=== PATIENT | female | born 1995 | race Caucasian/White ===

== ENCOUNTER 2018-06-20 00:33 | Outpatient (CLI) | payer OTHER, MEDICAID, SELFPAY ==
--- NOTE | 2018-06-20 06:57 | DI.US_ITS ---
SYMPTOMS/DIAGNOSIS: ONGOING WEIGHT GAIN WITH MAINLY ABDOMINAL DISTENTION, R14.0 ABDOMINAL ULTRASOUND: Comparison is made with July,. The liver is mildly enlarged and shows mildly increased echogenicity consistent with fatty infiltration. No focal liver lesions are seen. There is no evidence of biliary dilatation. The gallbladder is unremarkable, without evidence of stones or wall thickening. The spleen is enlarged, measuring 15.7 cm in length. This is stable from the previous exam. No focal splenic lesion is seen. There is no evidence of ascites. The kidneys, aorta and pancreas are unremarkable. IMPRESSION: Stable splenomegaly. The liver is now mildly enlarged and shows fatty infiltration. PELVIC ULTRASOUND: Transabdominal exam was performed. The uterus measures 5.6 x 3.1 x 3.8 cm. The endometrial stripe measures 3 mm in thickness. The ovaries are normal in size. No cysts or masses are seen. There is no evidence of free fluid. The bladder appears normal. IMPRESSION: Negative transabdominal pelvic ultrasound.
--- NOTE | 2018-06-20 06:57 | DI.RAD_ITS ---
SYMPTOMS/DIAGNOSIS: WEIGHT GAIN AND MAINLY PROGRESSIVE DISTENTION, R14.0 KUB: The bowel gas pattern is unremarkable. An enlarged spleen is seen. No urinary tract calculi are visible. The liver appears normal in size. IMPRESSION: Splenomegaly.
== END 2018-06-20 00:53 ==
PROVIDERS: PCP Pediatrics; Visit Provider Pediatrics
DX: R14.0 Abdominal distension (gaseous) (principal); R63.5 Abnormal weight gain; R16.1 Splenomegaly, not elsewhere classified
CPT/HCPCS: 74018; 76700; 76856

== ENCOUNTER 2019-01-08 15:39 | Outpatient (CLI) | payer OTHER, MEDICAID, SELFPAY ==
[2019-01-08 16:54] LABS: Hemoglobin A1C 4.1 % (4.5-6.2)
[2019-01-08 17:24] LABS: FREE T4 0.99 ng/dL (0.76-1.46); TSH 2.21 uIU/mL (0.358-3.74)
== END 2019-01-08 15:59 ==
PROVIDERS: PCP Nurse Practitioner Family; Visit Provider Pediatrics
DX: E03.9 Hypothyroidism, unspecified (principal)
CPT/HCPCS: 36415; 83036; 84439; 84443

== ENCOUNTER 2020-05-13 17:42 | Outpatient (REF) | payer OTHER, MEDICAID, SELFPAY | END 2020-05-13 18:02 | LOC: LBN 17:42 | PROVIDERS: PCP Nurse Practitioner Family; Visit Provider Physician Assistant | DX: B34.9 Viral infection, unspecified (principal) | CPT/HCPCS: 87070 ==

== ENCOUNTER 2020-05-14 09:32 | Outpatient (CLI) | payer OTHER, MEDICAID, SELFPAY ==
[2020-05-16 18:17] LABS: Patient Race White; SARS-CoV-2 RNA Undetected (Undetected); SARS-CoV-2 Specimen Source Nasal
== END 2020-05-14 09:52 ==
PROVIDERS: PCP Nurse Practitioner Family; Visit Provider Physician Assistant
DX: B34.8 Other viral infections of unspecified site (principal)
CPT/HCPCS: U0003

== ENCOUNTER 2020-06-11 22:14 | Outpatient (REF) | payer OTHER, MEDICAID, SELFPAY | END 2020-06-11 22:34 | LOC: LBN 22:14 | PROVIDERS: PCP Nurse Practitioner Family; Visit Provider Nurse Practitioner Family | DX: N30.90 Cystitis, unspecified without hematuria (principal) | CPT/HCPCS: 87086 ==

== ENCOUNTER 2020-06-15 01:28 | Outpatient (CLI) | payer OTHER, MEDICAID, SELFPAY ==
[2020-06-15 13:16] LABS: Abs Immature Grans 0.02 10^3/uL (0.0-0.06); Absolute Basophil Count 0.08 10^3/uL (0.0-0.2); Absolute Eosinophil Count 0.93 10^3/uL (0.0-0.7); Absolute Lymphocyte Count 2.01 10^3/uL (1.2-3.4); Absolute Monocyte Count 0.45 10^3/uL (0.1-0.8); Absolute Neutrophil Count 2.86 10^3/uL (1.2-6.7); Basophils % 1.3; Eosinophils % 14.6; HCT 40.1 % (36.0-46.0); HGB 12.9 g/dL (11.2-15.7); Immature Grans % 0.3; Lymphocytes % 31.7; MCH 31.5 pg (27.0-33.0); MCHC 32.2 % (32.0-36.0); MPV 9.6 fL (8.0-11.0); Monocytes % 7.1; Nucleated RBC 0 %; Platelet Count 147 10^3/uL (130-400); RBC 4.09 10^6/uL (3.93-5.22); RDW 14.6 % (11.7-14.6); RDW-SD 52.3 fL; WBC 6.35 10^3/uL (4.4-10.8)
[2020-06-15 17:55] LABS: ALT 17 U/L (14-59); AST 15 U/L (15-37); Albumin 3.7 g/dL (3.4-5.0); Alkaline Phosphatase 88 U/L (46-116); Anion Gap 10.5 mmol/L (3-11); BUN 10 mg/dL (7-18); Bilirubin, Total 0.7 mg/dL (0.2-1.0); CO2 25.5 mmol/L (21.0-32.0); CREATININE 0.64 mg/dL (0.55-1.02); Calcium 9.3 mg/dL (8.5-10.1); Chloride 104 mmol/L (98-107); FREE T4 0.98 ng/dL (0.76-1.46); Glucose 104 mg/dL (74-106); Potassium 3.7 mmol/L (3.5-5.1); Sodium 140 mmol/L (136-145); TSH 2.31 uIU/mL (0.36-3.74); Total Protein 7.7 g/dL (6.4-8.2)
== END 2020-06-15 01:48 ==
PROVIDERS: PCP Nurse Practitioner Family; Visit Provider Nurse Practitioner Family
DX: E03.9 Hypothyroidism, unspecified (principal); R10.13 Epigastric pain
CPT/HCPCS: 36415; 80053; 84439; 84443; 85025

== ENCOUNTER 2020-06-18 04:11 | Outpatient (CLI) | payer OTHER, MEDICAID, SELFPAY ==
--- NOTE | 2020-06-18 07:00 | DI.US_ITS ---
EXAM: US ABDOMEN PELVIS INDICATION: Epigastric AND LOW abdominal pain x 1wk, ? APPENDICITIS,R10.30,R10.13 COMPARISON: US US abdomen pelvis from 06/20/2018 TECHNIQUE: Ultrasound abdomen performed using standard protocol FINDINGS: Abdominal ultrasound was performed according to the usual protocol. The liver is mildly enlarged.. No focal hepatic lesion seen. There is no evidence of cholelithiasis or biliary dilatation. No gallbladder wall thickening or peric holecystic fluid collection. Pancreas appears intact as visualized. Spleen is moderately enlarged with no focal lesion.. Kidneys are normal in size and shape. No renal mass, hydronephrosis, or nephrolithiasis. Abdominal aorta and IVC are of normal diameter. Scanning of the pelvis was also performed, transabdominal scanning only. Uterus is unremarkable in a ppearance, measuring 61 x 34 x 38 millimeters, right and left ovaries measure 37 x 22 x 25 millimeter s and 25 x 13 x 17 millimeters respectively. Unremarkable appearance of ovarian follicles. No Doppl er abnormality of the ovaries. No free fluid identified in the cul-de-sac. IMPRESSION: Hepatosplenomegaly noted. No other specific abnormality. Appendix was nonvisualized ultrasonographi leana.. Negative transabdominal pelvic ultrasound.
== END 2020-06-18 04:31 ==
PROVIDERS: PCP Nurse Practitioner Family; Visit Provider Nurse Practitioner Family
DX: R16.2 Hepatomegaly with splenomegaly, not elsewhere classified (principal); R10.13 Epigastric pain; R10.30 Lower abdominal pain, unspecified
CPT/HCPCS: 76700; 76856

== ENCOUNTER 2020-07-01 04:13 | Outpatient (CLI) | payer OTHER, MEDICAID, SELFPAY ==
[2020-07-01 13:39] LABS: Amylase 44 U/L (25-115); Lipase 90 U/L (73-393)
[2020-07-05 13:25] LABS: IgA 86 mg/dL (85-499); Interpretation (See Note); Tissue Transglutaminase IgA <1.2 U/mL (<4.0)
== END 2020-07-01 04:33 ==
PROVIDERS: PCP Nurse Practitioner Family; Visit Provider Nurse Practitioner Family
DX: R10.13 Epigastric pain (principal)
CPT/HCPCS: 36415; 82784; 83516; 83690; 82150

== ENCOUNTER 2021-02-22 19:49 | Outpatient (REF) | payer OTHER, MEDICAID, SELFPAY ==
[2021-02-24 14:05] LABS: COVID-19 RT-PCR UVMMC Result Negative (Negative)
== END 2021-02-22 19:50 | disposition home or self-care (01) ==
LOC: LBN 19:49
PROVIDERS: PCP Nurse Practitioner Family; Visit Provider Physician Assistant
DX: J02.9 Acute pharyngitis, unspecified (principal); Z20.822 Contact with and (suspected) exposure to COVID-19
CPT/HCPCS: U0003; 87070

== ENCOUNTER 2021-12-19 11:21 | Outpatient (CLI) | payer OTHER, MEDICAID, SELFPAY ==
--- NOTE | 2021-12-19 11:00 | DI.RAD_ITS ---
Exam(s) XR WRIST LT COMP NAVICULAR EXAM: XR WRIST LT COMP NAVICULAR CLINICAL HISTORY: L wrist pain. TECHNIQUE: 2D digital imaging was performed. Four views. COMPARISON: No exams were available for comparison FINDINGS: BONES: No acute fracture is present. No bony destructive lesion is seen. JOINTS: The carpal bones are normally aligned. SOFT TISSUE: Normal. IMPRESSION: Unremarkable radiographs of the left wrist. DATA REPOSITORY: RADIATION DOSE DELIVERED:
== END 2021-12-19 11:22 | disposition home or self-care (01) ==
LOC: DIORS 11:21
PROVIDERS: PCP Nurse Practitioner Family; Referring Provider Nurse Practitioner Family; Visit Provider Physician Assistant
DX: M25.532 Pain in left wrist (principal)
CPT/HCPCS: 73110

== ENCOUNTER → 2022-01-02 04:05 | Outpatient (CLI) | payer OTHER, MEDICAID, SELFPAY ==
--- NOTE | 2022-01-02 06:30 | DI.MRI_ITS ---
Exam(s) MR UPPER JOINT LT WO EXAM: MR UPPER JOINT LT WO CLINICAL HISTORY: wrist pain, ganglion cyst volar aspect, [id number]. TECHNIQUE: Multiplanar multisequence MRI was performed. COMPARISON: None. FINDINGS: BONES: There is no fracture or contusion pattern. Minimal edema seen in the lunate and the distal rad ius. JOINTS: The radiocarpal joint is unremarkable. The carpal joints are unremarkable. TENDONS: Flexors: Unremarkable. Extensors: Unremarkable. MUSCLES: Unremarkable. MEDIAN NERVE: Unremarkable on this noncontrast examination. ULNAR NERVE: Unremarkable on this noncontrast examination. SOFT TISSUES: There is a tiny fluid collection in the volar soft tissues measuring 1.8 mm x 5.8 mm ar ising from the articulation between the trapezium and the scaphoid. There is a 2.3 x 3.7 mm fluid co llection on the dorsal aspect of the wrist arising from the articulation of the scaphoid in the dista l radius. There is a 5.6 x 1.9 mm fluid collection at the posterior medial aspect of the articulatio n between the pisiform and the triquetral bone. These may represent small ganglion cysts. LIGAMENTS: Unremarkable. TRIANGULAR FIBROCARTILAGE: Unremarkable. OTHER: IMPRESSION: Small fluid collections in the soft tissues of the wrist as described above. These may represent sma ll ganglions. DATA REPOSITORY:
== END ==
PROVIDERS: PCP Nurse Practitioner Family; Visit Provider Student in an Organized Health Care Education/Training Program
DX: M25.532 Pain in left wrist; M67.432 Ganglion, left wrist
CPT/HCPCS: 73221

== ENCOUNTER 2022-05-25 17:24 | Outpatient (REF) | payer OTHER, MEDICARE, MEDICAID, SELFPAY | END 2022-05-25 17:25 | disposition home or self-care (01) | LOC: LBN 17:24 | PROVIDERS: PCP Nurse Practitioner Family; Visit Provider Physician Assistant | DX: J02.9 Acute pharyngitis, unspecified (principal) | CPT/HCPCS: 87070 ==

== ENCOUNTER 2022-05-29 11:52 | Outpatient (REF) | payer OTHER, MEDICARE, MEDICAID, SELFPAY | END 2022-05-29 11:53 | disposition home or self-care (01) | LOC: LBN 11:52 | PROVIDERS: PCP Nurse Practitioner Family; Visit Provider Nurse Practitioner Family | DX: J02.9 Acute pharyngitis, unspecified (principal) | CPT/HCPCS: 87070 ==

== ENCOUNTER 2022-06-14 19:43 | Emergency (ER) | payer OTHER, MEDICARE, MEDICAID, SELFPAY ==
--- NOTE | 2022-06-14 19:45 | DI.RAD_ITS ---
Exam(s) XR ELBOW LT COMPLETE EXAM: XR ELBOW LT COMPLETE CLINICAL HISTORY: fall trauma TECHNIQUE: COMPARISON: No exams were available for comparison FINDINGS: Three views were obtained. There is a large elbow joint effusion or hemarthrosis. Probable fracture coronoid process of the ulna. No additional discrete fracture seen. Additional evaluation with fol low-up views or CT should be considered. IMPRESSION: RADIATION DOSE DELIVERED: Total DLP
[2022-06-14 19:52] VITALS: BP 114/77; PULSE 98; RESP 18; TEMP 37
[2022-06-14] MEDS: Ibuprofen 600 MG TAB PO (20:04)
--- NOTE | 2022-06-14 21:06 | DI.VRAD_ITS ---
PROCEDURE INFORMATION: Exam: XR Left Elbow Exam date and time: 06/14/2022 20:32 Age: 27 years old Clinical indication: Other: Fall, trauma TECHNIQUE: Imaging protocol: Radiologic exam of the Left elbow. Views: 3 or more views. COMPARISON: MR UPPER JOINT LT WO 01/02/2022 07:48 FINDINGS: Bones/joints: Suspected acute nondisplaced fracture of the coronoid process of the ulna. There is slight irregularity at this location on the lateral view with adjacent joint fluid. No dislocation. Soft tissues: Joint fluid. IMPRESSION: Suspected acute nondisplaced fracture of the coronoid process of the ulna. There is slight irregularity at this location on the lateral view with adjacent joint fluid. Follow-up is recommended. Dictated and Authenticated by: Amber Gustafson MD. Ordering:PAMELA Angel MD
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
== END 2022-06-14 22:42 | disposition home or self-care (01) ==
PROVIDERS: Emergency Provider Nurse Practitioner Family; PCP Nurse Practitioner Family
DX: S52.042A Displaced fracture of coronoid process of left ulna, initial encounter for closed fracture (principal); V29.99XA Rider (driver) (passenger) of other motorcycle injured in unspecified traffic accident, initial encounter
CPT/HCPCS: 29515; 99283; 73080

== ENCOUNTER 2022-07-06 09:09 | Outpatient (CLI) | payer OTHER, MEDICARE, MEDICAID, SELFPAY ==
--- NOTE | 2022-07-06 08:45 | DI.RAD_ITS ---
Exam(s) XR ELBOW LT LIMITED EXAM: XR ELBOW LT LIMITED CLINICAL HISTORY: follow up. TECHNIQUE: 2D digital imaging was performed of the left elbow. Two images were obtained. AP, later al and oblique views were obtained. COMPARISON: CR,XR XR ELBOW LT COMPLETE from 06/14/2022 FINDINGS: BONES: On the lateral view there is again seen a lucency through the coronoid process suspicious for fracture. No bony destructive lesion is seen. JOINTS: The elbow is normally aligned. There is a persistent small joint effusion. SOFT TISSUE: Normal. IMPRESSION: Stable appearance of the coronoid process suspicious for fracture. A CT scan may be considered for f urther evaluation. DATA REPOSITORY: RADIATION DOSE DELIVERED:
== END 2022-07-06 09:10 | disposition home or self-care (01) ==
LOC: DIORS 09:09
PROVIDERS: PCP Nurse Practitioner Family; Referring Provider Nurse Practitioner Family; Visit Provider Physician Assistant Surgical
DX: S52.042D Displaced fracture of coronoid process of left ulna, subsequent encounter for closed fracture with routine healing (principal); X58.XXXD Exposure to other specified factors, subsequent encounter
CPT/HCPCS: 73070

== ENCOUNTER 2022-08-05 18:19 | Emergency (ER) | payer OTHER, MEDICARE, MEDICAID, SELFPAY ==
[2022-08-05 18:27] VITALS: BP 143/79; PULSE 131; RESP 22; TEMP 37.2; O2SAT 97
--- NOTE | 2022-08-05 19:30 | DI.RAD_ITS ---
Exam(s) XR CHEST 2V PA LATERAL EXAM: XR CHEST 2V PA LATERAL CLINICAL HISTORY: COUGH 1 week, pui TECHNIQUE: 2D digital imaging was performed. COMPARISON: CR THORACIC SPINE from 08/14/2016 FINDINGS: HEART: Normal size. Aorta: PULMONARY VASCULATURE: Normal. LUNGS: Patchy infiltrate is noted in the right middle lobe. There is also additional patchy infiltra te seen in the left upper lobe. PLEURAL SPACE: No pleural effusion or pneumothorax. BONE:Unremarkable for age. IMPRESSION: Bilateral pneumonia, greater in the right middle lobe. DATA REPOSITORY: RADIATION DOSE DELIVERED:
--- NOTE | 2022-08-05 19:45 | ED.GENADUL_ITS ---
Discharge Plan Discharge Details Chief Complaint: RespSymp Primary Care Provider: Aretha Parnell ED Provider: Titus Gandara Home Meds and New Rx's Prescriptions: No Action triamcinolone acetonide 0.1 % cream 1 applic Topical BID PRN (Reason: atopic dermatitis) Qty: 80 4RF Rx Instructions: Apply small amount to affected areas twice a day as needed for rash Fiber Gummies 2 gram tablet,chewable 2 g PO DAILY PRN albuterol sulfate [Proventil HFA] 90 mcg/actuation HFA aerosol inhaler 2 puff inhalation Q6H PRN (Reason: shortness of breath or wheezing) Qty: 8.5 0RF norethindrone-e.estradiol-iron [Minastrin 24 Fe] 1 mg-20 mcg(24) /75 mg (4) tablet,chewable 1 tab PO DAILY Qty: 28 0RF Medical Decision Making 1942 --27-year-old female presents with cough, congestion and sore throat over the past 2 days patient is tachycardic, is saturating well on room air but has crackles bilaterally. Concern for pneumonia. Consider COVID and other viral illness. Of note, patient had been diagnosed with pneumonia clinically and treated with doxycycline in May. I will check FLUVID. We will establish IV access and give IV fluid bolus for tachycardia. Will obtain chest x-ray. Sign Out Yes HPI General Mode of arrival: ambulatory . Date/Time Provider Initiated Documentation: 08/05/22 18:45 . Limitations to Documentation: no limitations . Information obtained by: patient . HPI Narrative: 27-year-old female with mild developmental delay, presents with chief complaint of cough. Patient has had cough for the past 2 days with associated congestion and sore throat. Cough is moderate to severe with no modifiers. Of note, patient did have pneumonia that was treated with antibiotics in May. Related Data Home Medications Medication Instructions Recorded Confirmed inulin 2 gram chewable tablet 2 g PO DAILY PRN 04/22/21 08/05/22 (Fiber Gummies) triamcinolone acetonide 0.1 % 1 applic topical BID PRN atopic 06/29/21 08/05/22 topical cream dermatitis #80 grams norethindrone 1 mg-e. estradiol 20 1 tab PO DAILY #28 tabs 03/21/22 08/05/22 mcg (24)-iron 75 mg (4) chew tablet (Minastrin 24 Fe) albuterol sulfate 90 mcg/actuation 2 puff inhalation Q6H PRN 05/25/22 08/05/22 aerosol inhaler (Proventil HFA) shortness of breath or wheezing #8.5 grams Previous Rx's Medication Instructions Recorded triamcinolone acetonide 0.1 % 1 applic topical BID PRN atopic 06/29/21 topical cream dermatitis #80 grams norethindrone 1 mg-e. estradiol 20 1 tab PO DAILY #28 tabs 03/21/22 mcg (24)-iron 75 mg (4) chew tablet (Minastrin 24 Fe) albuterol sulfate 90 mcg/actuation 2 puff inhalation Q6H PRN 05/25/22 aerosol inhaler (Proventil HFA) shortness of breath or wheezing #8.5 grams Allergies Allergy/AdvReac Type Severity Reaction Status Date / Time amoxicillin Allergy Intermediate RASH Verified 08/05/22 18:29 cephalexin monohydrate Allergy Intermediate RASH Verified 08/05/22 18:29 [From Keflex] sulfamethoxazole Allergy Intermediate Hives Verified 08/05/22 18:29 [From Bactrim] trimethoprim [From Bactrim] Allergy Intermediate Hives Verified 08/05/22 18:29 clindamycin Allergy Hives Verified 08/05/22 18:29 General Stated Complaint: RespSymp BEKAH: 3 Review of Systems Constitutional Constitutional: Denies fever(s) and Reports lethargy ENT Ears, Nose, Mouth, and Throat: Reports sore throat Cardiovascular Cardiovascular: Denies chest pain Respiratory Respiratory: Reports as per HPI Gastrointestinal Gastrointestinal: Reports nausea PFSH All Active Problems Left wrist pain (Acute) Ganglion cyst of volar aspect of left wrist (Acute) Chromosome 1p36 deletion syndrome (Chronic) Splenomegaly (Chronic ~2007) Idiopathic, s/p partial splenectomy with recurrence. Fatty liver (Chronic ~06/2018) Noted on US. [facility] – [place] Hepatology eval 08/2018 with negative fibroscan and normal LFTs. No further workup indicated. 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) ADHD (attention deficit hyperactivity disorder) (Chronic) Medical History Major depressive disorder Subclinical hypothyroidism (~08/2017) Velopharyngeal insufficiency, congenital S/p pharyngoplasty Surgical History H/O oral surgery X 3 History of partial splenectomy (01/02/11) History of surgery on arm (07/07/09) Closed reduction and percutaneous pinning of displaced supracondylar fracture of left distal humerus S/P pharyngoplasty (10/03/04) Family History Self Adopted Mother Fragile X syndrome Social History Smoking/Tobacco Use Status: Never Second Hand Exposure: No Smoking risk assessment performed?: Yes Alcohol Intake: current Alcohol Intake frequency: a few times a month Alcohol type: other Drug use: Never Substance use type: does not use Adopted: Yes Caregiver/Support person: Yes (Mother) Foster care: No Household members: adopted family Housing: house Communication Needs: None Do you need help understanding health information?: Often current occupation: [employer] Pets and animals: Yes Pets and animals: cat(s) and dog(s) Sexually active: No Do you think of yourself as: straight/heterosexual What is your relationship status?: never How often do you talk on the phone with friends or family?: three or more times per week How often do you get together with friends or relatives?: three or more times per week Do you belong to any clubs or organized social groups?: yes Panel score (0-1 are the most socially isolated patients): 2 What type of physical activity do you participate in: regular exercise, other Details: Rock climbing and running Duration: 45-60 minutes/day Frequency: 3-4 times per week Delia/Amish: Gnosticist Special delia needs: No Seatbelt use: always Helmet use: Yes Water heater temp set <120 deg: Yes Working smoke detector in home: Yes Fire extinguisher in home: Yes Carbon monox detector in home: Yes Firearms in home: No Do you feel safe at home: Yes Do you feel safe in your relationship?: Yes Female Reproductive History Menstrual control method: pills History History 0 Para Hx # Term Pregnancies Multiple births Hx # Pregnancies Ectopic pregnancies AB induced Hx Number of Living Children AB spontaneous Exam Const General: cooperative and no acute distress HENMT Mouth: moist mucous membranes Eyes Conjunctivae: normal conjunctivae Sclera: normal sclerae Neck Neck: trachea midline and supple Resp Auscultation: crackles bilaterally, rhonchi upper bilaterally and no wheezes Cardio Rate: tachycardic Rhythm: regular rhythm Heart Sounds: no murmurs GI Palpation: soft, not firm, no guarding, no masses, not rigid and nontender Skin General skin exam: no rashes or lesions noted Neuro General: patient alert, patient awake, patient oriented x3 and tone normal Extrem General: no edema Psych Appearance: grossly normal Mental Status: mental status grossly normal Course Vital Signs Vital signs: Vital Signs Temperature 37.2 C 08/05/22 18:27 Pulse 131 H 08/05/22 18:27 Respiratory Rate 22 08/05/22 18:27 Blood Pressure 143/79 H 08/05/22 18:27 Pulse Oximetry 97 08/05/22 18:27 Temperature 37.2 C 08/05/22 18:27 Pulse 131 H 08/05/22 18:27 Respiratory Rate 22 08/05/22 18:27 Respiratory Effort 08/05/22 18:31 Blood Pressure 143/79 H 08/05/22 18:27 Blood Pressure Position Sitting 08/05/22 18:27 Pulse Oximetry 97 08/05/22 18:27 Oxygen Delivery Method Room Air 08/05/22 18:27 Oxygen Flow Rate 0 08/05/22 18:27 Lab/Test Results Lab/Test Results: 08/05/22 18:40 Pharynx Group A Streptococcus Culture - Pending POC Strep Test-QIANA(Rapid) Start: 08/05/22 18:34 Freq: .Rapid Strep Test Status: Active Protocol: Document 08/05/22 18:35 CB (Rec: 08/05/22 18:35 [id number]) Strep test-QIANA(Rapid)-POC POC-Strep test-QIANA (Rapid) Negative POC-Strep test-QIANA (Rapid) Negative PAWSS Have you Been Recently Intoxicated or Drunk Within the Last 30 days?: No Have you Ever Experienced Previous Episodes of Alcohol Withdrawal?: No Have you ever Experienced Withdrawal Seizures?: No Have you ever Experienced Delirium Tremens(DT)s?: No Have you ever undergone Alcohol Rehabilitation Treatment (i.e, inpt ot outpatient treatment programs)?: No Have you ever Experienced Blackouts?: No Have you ever Combined Alcohol with other Downers within the last 90 days?: No Have you ever Combined Alcohol with any other Substance of Abuse during the last 90 days?: No Positive Blood Alcohol level on Presentation? [PCS.BAL]: No Evidence of Increased Autonomic Activity (i.e. HR>120, tremor, sweating, agitation, nausea)?: No Result: 0
[2022-08-05 20:48] LABS: COVID-19 PCR Negative (Negative); Influenza A PCR Negative (Negative); Influenza B PCR Negative (Negative); RSV PCR Negative (Negative)
[2022-08-05 20:49] LABS: Source Nasopharynx
--- NOTE | 2022-08-05 20:57 | DI.VRAD_ITS ---
PROCEDURE INFORMATION: Exam: XR Chest Exam date and time: 08/05/2022 8:40 PM Age: 27 years old Clinical indication: Cough; Additional info: Cough x 1 week TECHNIQUE: Imaging protocol: Radiologic exam of the chest. Views: 2 views. COMPARISON: MR UPPER JOINT LT WO 01/02/2022 7:48 AM FINDINGS: Lungs: There is a moderate-sized region of pulmonary opacity overlying the right lower lung zone. There is a small region of pulmonary opacity overlying the left mid lung zone. Pleural spaces: No pleural effusion or pneumothorax is demonstrated. Heart/Mediastinum: The heart size is normal. Bones/joints: The visualized bony structures appear grossly intact. IMPRESSION: Bilateral pulmonary opacities, larger on the right. Multifocal pneumonia is suspected primarily in a young patient. Clinical correlation is recommended. Dictated and Authenticated by: Fernando Giordano MD. Ordering:JULIA Qureshi MD
--- NOTE | 2022-08-05 21:20 | ED.PROG_ITS ---
Date of service: 08/05/22 Time of Service: 21:20 Medical Decision Making Evidence of predominant right middle lobe pneumonia. No respiratory distress maintaining oxygenation tolerating secretions. Nontoxic however tachycardic on arrival. Multiple bedside attempts for IV placement were unsuccessful, creating anxiety discomfort and patient. I have offered to place ultrasound-guided IV however given level of discomfort and anxiety patient family would like to hold off at this time. Patient is tolerating p.o. without issue, will administer Pedialyte on top of the water that she has been drinking at bedside. Given multiple medication allergies will start patient on respiratory fluoroquinolone. Close reassessment of symptoms colitis patient remained stable and can continue to take p.o. will likely be able to discharge home care instructions and return precautions 23: 15 despite tolerating p.o. fluids patient is persistently tachycardic. In the setting of pneumonia would benefit from trial of parenteral fluids and screening labs for possible observation/admission. Consider component of pain/a nxiety from prior IV stick. Patient was given 2 mg nasal Versed and offered topical anesthetic cream however still very anxious about getting an IV stick. Will likely need to sedate patient for IV access. 08/06 01: 46 patient resting comfortably heart rate greatly improved respiratory rate improved normoxic no distress. Appears proved after fluids. Labs largely unremarkable. We will continue with oral levofloxacin as outpatient we will also prescribe albuterol inhaler. Home care instructions and return precautions given. Patient and family feeling comfortable to go home. Sign Out No Sign Out Sign Out Data: Sign Out Comment: 27-year-old female here with cough for the past 2 days. Patient is tachycardic. Plan at signout is followup labs, covid and cxr and reassess patient after IV fluids and acetaminophen IV for disposition. Last updated by Titus Gandara MD at 08/05/22 19:54 Discharge Plan Disposition Patient Disposition: Home Condition: Improving Discharge Details Clinical Impression: Pneumonia Primary Care Provider: Aretha Parnell ED Provider: Duane Sorensen Home Meds and New Rx's Prescriptions: New levofloxacin 750 mg tablet 750 mg PO DAILY 7 Days Qty: 7 0RF No Action triamcinolone acetonide 0.1 % cream 1 applic Topical BID PRN (Reason: atopic dermatitis) Qty: 80 4RF Rx Instructions: Apply small amount to affected areas twice a day as needed for rash Fiber Gummies 2 gram tablet,chewable 2 g PO DAILY PRN albuterol sulfate [Proventil HFA] 90 mcg/actuation HFA aerosol inhaler 2 puff inhalation Q6H PRN (Reason: shortness of breath or wheezing) Qty: 8.5 0RF norethindrone-e.estradiol-iron [Minastrin 24 Fe] 1 mg-20 mcg(24) /75 mg (4) tablet,chewable 1 tab PO DAILY Qty: 28 0RF Discharge Instructions Instructions: Pneumonia (ED) Additional Instructions: Please take medications as prescribed. Please return to the emergency department for any worsening symptoms. Follow-up with your primary care physician next week.
[2022-08-05] MEDS: Electrolyte SOLUTION,ORAL 1000 ML BTL (21:22)
[2022-08-05] MEDS: levoFLOXacin 500 MG, levoFLOXacin 250 MG 750 MG PO (21:22)
[2022-08-05 22:02] VITALS: BP 121/74; PULSE 119; RESP 24; O2SAT 98
[2022-08-05] MEDS: Levalbuterol 1.25 MG/3 ML UPD VIAL UPD (22:05)
[2022-08-05] MEDS: Midazolam 10 MG/2 ML VIAL 2 MG NS (22:50)
[2022-08-06] MEDS: Lidocaine 4% Cream 5 GM TUBE TP
[2022-08-06] MEDS: Normal Saline 1,000 ML 1000 ML IV (00:05)
[2022-08-06 00:24] LABS: Lactate 1.4 mmol/L (0.6-1.4)
[2022-08-06] MEDS: Acetaminophen 325 MG TAB (00:25)
[2022-08-06 00:26] LABS: Abs Immature Grans 0.02 10^3/uL (0.0-0.06); Absolute Basophil Count 0.04 10^3/uL (0.0-0.2); Absolute Eosinophil Count 0.15 10^3/uL (0.0-0.7); Absolute Lymphocyte Count 1.04 10^3/uL (1.2-3.4); Absolute Monocyte Count 0.49 10^3/uL (0.1-0.8); Absolute Neutrophil Count 5.52 10^3/uL (1.2-6.7); Basophils % 0.6; Eosinophils % 2.1; HCT 38.4 % (36.0-46.0); HGB 12.9 g/dL (11.2-15.7); Immature Grans % 0.3; Lymphocytes % 14.3; MCH 30.9 pg (27.0-33.0); MCHC 33.6 % (32.0-36.0); MCV 92 fL (80-95); Monocytes % 6.7; Platelet Count 154 10^3/uL (130-400); RBC 4.18 10^6/uL (3.93-5.22); RDW 13.7 % (11.7-14.6); RDW-SD 45.7 fL; WBC 7.26 10^3/uL (4.4-10.8)
[2022-08-06 00:41] LABS: ALT 14 U/L (14-59); AST 11 U/L (15-37); Albumin 3.9 g/dL (3.4-5.0); Alkaline Phosphatase 84 U/L (46-116); Anion Gap 9.3 mmol/L (3-11); BUN 10 mg/dL (7-18); Bilirubin, Total 0.8 mg/dL (0.2-1.0); CO2 24.7 mmol/L (21.0-32.0); CREATININE 0.6 mg/dL (0.55-1.02); Calcium 9.2 mg/dL (8.5-10.1); Chloride 102 mmol/L (98-107); Estimated GFR 127.67 (mL/min/1.73m2); Glucose 110 mg/dL (74-106); Potassium 3.7 mmol/L (3.5-5.1); Sodium 136 mmol/L (136-145); Total Protein 8.2 g/dL (6.4-8.2)
[2022-08-06 01:10] VITALS: PULSE 101; O2SAT 97
[2022-08-06 02:00] VITALS: BP 119/68; PULSE 99; RESP 16; TEMP 37; O2SAT 97
[2022-08-06] MEDS: levoFLOXacin 500 MG, levoFLOXacin 250 MG 750 MG PO (02:00)
[2022-08-06] MEDS: Albuterol HFA 8 GM 60 PUFF INH IH (02:00)
--- NOTE | 2022-08-06 02:18 | NUR.NOTE ---
spacer given at discharge.Nursing Note:
== END 2022-08-06 02:21 | disposition home or self-care (01) ==
PROVIDERS: Registered Nurse Emergency; Student in an Organized Health Care Education/Training Program; Emergency Provider Emergency Medicine; PCP Nurse Practitioner Family
DX: J18.9 Pneumonia, unspecified organism (principal); R00.0 Tachycardia, unspecified; E03.9 Hypothyroidism, unspecified; Z20.822 Contact with and (suspected) exposure to COVID-19
CPT/HCPCS: 36415; 80053; 87637; 87880; 94640; 96361; 96374; 99284; 71046; 83605; 85025; 87081; J7614

== ENCOUNTER 2022-08-07 02:09 | Inpatient (IN) | payer OTHER, MEDICARE, MEDICAID, SELFPAY ==
[2022-08-07] VITALS (25 sets, daily range): BP systolic 104–147; BP diastolic 57–78; PULSE 94–145; RESP 1–45; TEMP 36.7–37.9; O2SAT 93–99
--- NOTE | 2022-08-07 02:15 | DI.RAD_ITS ---
Exam(s) XR PORTABLE CHEST AP EXAM: XR PORTABLE CHEST AP CLINICAL HISTORY: shortness of breath, cough TECHNIQUE: 2D digital imaging was performed. COMPARISON: No exams were available for comparison FINDINGS: LUNGS: Interval increase in density of previously noted right lower lung field pneumonia. This also mildly increased densities in the left mid lung field. No pleural abnormality seen. HEART: Normal. AORTA: Normal. BONES: Unremarkable for age. Soft tissues: Unremarkable. IMPRESSION: Interval worsening previously bilateral infiltrates greater on the right. DATA REPOSITORY: RADIATION DOSE DELIVERED:
--- NOTE | 2022-08-07 02:31 | ED.GENADUL_ITS ---
Discharge Plan Disposition Patient Disposition: Admit to [facility] Condition: Stable Discharge Details Chief Complaint: RespSymp Clinical Impression: Pneumonia, RSV (respiratory syncytial virus pneumonia) Primary Care Provider: Aretha Parnell ED Provider: Duane Sorensen Home Meds and New Rx's Prescriptions: No Action triamcinolone acetonide 0.1 % cream 1 applic Topical BID PRN (Reason: atopic dermatitis) Qty: 80 4RF Rx Instructions: Apply small amount to affected areas twice a day as needed for rash Fiber Gummies 2 gram tablet,chewable 2 g PO DAILY PRN albuterol sulfate [Proventil HFA] 90 mcg/actuation HFA aerosol inhaler 2 puff inhalation Q6H PRN (Reason: shortness of breath or wheezing) Qty: 8.5 0RF norethindrone-e.estradiol-iron [Minastrin 24 Fe] 1 mg-20 mcg(24) /75 mg (4) tablet,chewable 1 tab PO DAILY Qty: 28 0RF levofloxacin 750 mg tablet 750 mg PO DAILY 7 Days Qty: 7 0RF Medical Decision Making 27-year-old female presents brought in by parents for evaluation of worsening infectious symptoms, was diagnosed with pneumonia yesterday started on levofloxacin given multiple medication allergies, presents with recurrent tachycardia diaphoresis fever body aches headache cough. Concern for persistent/worsening pneumonia. Will benefit from IV fluids, parenteral antibiotics, admission for monitoring of respiratory status. Lower suspicion for cardiac etiology PE or other source of infection. Nonmeningeal, alert interactive. Due to developmental delay and anxiety patient will be anxiolysis and topical anesthetic before IV placement. Will draw labs cultures will obtain x-ray. 05:02 evidence of worsening pneumonia, RSV, patient given dexamethasone nebulized albuterol, fluids, Levaquin. Will be admitted for close observation of respiratory status and fluid status. Sign Out No HPI General Date/Time Provider Initiated Documentation: 08/07/22 02:27 . HPI Narrative: 27-year-old female recently diagnosed with pneumonia discharged home with oral antibiotics presents with persistent tachycardia shortness of breath and cough, diaphoresis headache and body aches. Initially showed improvement during last visit however worsened today per parents. Related Data Home Medications Medication Instructions Recorded Confirmed inulin 2 gram chewable tablet 2 g PO DAILY PRN 04/22/21 08/05/22 (Fiber Gummies) triamcinolone acetonide 0.1 % 1 applic topical BID PRN atopic 06/29/21 08/05/22 topical cream dermatitis #80 grams norethindrone 1 mg-e. estradiol 20 1 tab PO DAILY #28 tabs 03/21/22 08/05/22 mcg (24)-iron 75 mg (4) chew tablet (Minastrin 24 Fe) albuterol sulfate 90 mcg/actuation 2 puff inhalation Q6H PRN 05/25/22 08/05/22 aerosol inhaler (Proventil HFA) shortness of breath or wheezing #8.5 grams levofloxacin 750 mg tablet 750 mg PO DAILY 7 days #7 tabs 08/06/22 Previous Rx's Medication Instructions Recorded triamcinolone acetonide 0.1 % 1 applic topical BID PRN atopic 06/29/21 topical cream dermatitis #80 grams norethindrone 1 mg-e. estradiol 20 1 tab PO DAILY #28 tabs 03/21/22 mcg (24)-iron 75 mg (4) chew tablet (Minastrin 24 Fe) albuterol sulfate 90 mcg/actuation 2 puff inhalation Q6H PRN 05/25/22 aerosol inhaler (Proventil HFA) shortness of breath or wheezing #8.5 grams levofloxacin 750 mg tablet 750 mg PO DAILY 7 days #7 tabs 08/06/22 Allergies Allergy/AdvReac Type Severity Reaction Status Date / Time amoxicillin Allergy Intermediate RASH Verified 08/07/22 04:03 cephalexin monohydrate Allergy Intermediate RASH Verified 08/07/22 04:03 [From Keflex] sulfamethoxazole Allergy Intermediate Hives Verified 08/07/22 04:03 [From Bactrim] trimethoprim [From Bactrim] Allergy Intermediate Hives Verified 08/07/22 04:03 clindamycin Allergy Hives Verified 08/07/22 04:03 General Stated Complaint: RespSymp BEKAH: 3 Review of Systems Narrative: Review of Systems Constitutional: Fever Eyes: negative ENT: negative Cardiovascular: negative Respiratory: Cough Gastrointestinal: negative : negative Musculoskeletal: negative Skin: negative Neurologic: negative Psych: negative PFSH All Active Problems (Updated 08/07/22 @ 05:04 by Duane Sorensen MD) Pneumonia (Acute) Pneumonia (Acute) RSV (respiratory syncytial virus pneumonia) (Acute) Left wrist pain (Acute) Ganglion cyst of volar aspect of left wrist (Acute) Chromosome 1p36 deletion syndrome (Chronic) Splenomegaly (Chronic ~2007) Idiopathic, s/p partial splenectomy with recurrence. Fatty liver (Chronic ~06/2018) Noted on US. [facility] [place] Hepatology eval 08/2018 with negative fibroscan and normal LFTs. No further workup indicated. 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) ADHD (attention deficit hyperactivity disorder) (Chronic) Medical History Major depressive disorder Subclinical hypothyroidism (~08/2017) Velopharyngeal insufficiency, congenital S/p pharyngoplasty Surgical History H/O oral surgery X 3 History of partial splenectomy (01/02/11) History of surgery on arm (07/07/09) Closed reduction and percutaneous pinning of displaced supracondylar fracture of left distal humerus S/P pharyngoplasty (10/03/04) Family History Self Adopted Mother Fragile X syndrome Social History Smoking/Tobacco Use Status: Never Second Hand Exposure: No Smoking risk assessment performed?: Yes Alcohol Intake: current Alcohol Intake frequency: a few times a month Alcohol type: other Drug use: Never Substance use type: does not use Adopted: Yes Caregiver/Support person: Yes (Mother) Foster care: No Household members: adopted family Housing: house Communication Needs: None Do you need help understanding health information?: Often current occupation: [employer] Pets and animals: Yes Pets and animals: cat(s) and dog(s) Sexually active: No Do you think of yourself as: straight/heterosexual What is your relationship status?: never How often do you talk on the phone with friends or family?: three or more times per week How often do you get together with friends or relatives?: three or more times per week Do you belong to any clubs or organized social groups?: yes Panel score (0-1 are the most socially isolated patients): 2 What type of physical activity do you participate in: regular exercise, other Details: Rock climbing and running Duration: 45-60 minutes/day Frequency: 3-4 times per week Delia/Anabaptist: Lutheran Special delia needs: No Seatbelt use: always Helmet use: Yes Water heater temp set <120 deg: Yes Working smoke detector in home: Yes Fire extinguisher in home: Yes Carbon monox detector in home: Yes Firearms in home: No Do you feel safe at home: Yes Do you feel safe in your relationship?: Yes Female Reproductive History Menstrual control method: pills History History 0 Para Hx # Term Pregnancies Multiple births Hx # Pregnancies Ectopic pregnancies AB induced Hx Number of Living Children AB spontaneous Exam Narrative Exam Narrative: Physical Examination General: alert, awake, cooperative, appears moderately uncomfortable and anxious HEENT: normocephalic, atraumatic; PERRL, EOM intact, conjunctiva normal; no nasal discharge; moist mucous membranes, oral and pharyngeal mucosa normal, tolerating secretions Neck: supple, trachea midline; full ROM Chest: normal to inspection Respiratory: normal respiratory effort, speaking in full sentences, clear to auscultation, no wheezing, rales or rhonchi Cardiac: Tachycardia, regular rhythm, S1S2 intact, no murmurs rubs or gallops GI: abdomen soft, non-tender, non-distended; no palpable mass or hep atosplenomegaly Skin: Diaphoretic; no lesions, rashes or trauma appreciated Neuro: AAOx3, normal speech, moving all extremities Psych: Anxious appearing Course Vital Signs Vital signs: Vital Signs Temperature 37.7 C H 08/07/22 02:14 Pulse 145 H 08/07/22 02:14 Respiratory Rate 24 08/07/22 02:14 Blood Pressure 147/73 H 08/07/22 02:14 Pulse Oximetry 99 08/07/22 02:14 Temperature 37.7 C H 08/07/22 02:14 Pulse 145 H 08/07/22 02:14 Respiratory Rate 24 08/07/22 02:14 Respiratory Effort 08/07/22 02:19 Respiratory Depth Shallow 08/07/22 02:19 Blood Pressure 147/73 H 08/07/22 02:14 Blood Pressure Position Sitting 08/07/22 02:14 Pulse Oximetry 99 08/07/22 02:14 Oxygen Delivery Method Room Air 08/07/22 02:14 Oxygen Flow Rate 0 08/07/22 02:14 Pain Level 0 08/07/22 02:14
[2022-08-07] MEDS: Midazolam 10 MG/2 ML VIAL 4 MG NS (02:39)
[2022-08-07] MEDS: Lidocaine 4% Cream 5 GM TUBE TP (02:39)
[2022-08-07 03:37] LABS: COVID-19 PCR Negative (Negative); Influenza A PCR Negative (Negative); Influenza B PCR Negative (Negative)
[2022-08-07] MEDS: Midazolam 10 MG/2 ML VIAL 2 MG NS (03:43)
[2022-08-07 03:44] LABS: RSV PCR Positive (Negative); Source Nasopharynx
--- NOTE | 2022-08-07 03:53 | DI.VRAD_ITS ---
PROCEDURE INFORMATION: Exam: XR Chest Exam date and time: 08/07/2022 3:03 AM Age: 27 years old Clinical indication: Cough and shortness of breath; Patient HX: Cough, SOB TECHNIQUE: Imaging protocol: Radiologic exam of the chest. Views: 1 view. COMPARISON: CR XR CHEST 2V PA LATERAL 08/05/2022 8:40 PM FINDINGS: Lungs: There is patchy alveolar opacity throughout the right lower lung zone, worse compared with the prior study from August 05. There is mildly increased hazy density on the left. Pleural spaces: No pleural effusion or pneumothorax is demonstrated. Heart/Mediastinum: Heart size is normal. Bones/joints: The visualized bony structures appear grossly intact. IMPRESSION: Patchy alveolar opacity throughout the right lower lung zone, worse compared with the prior study. Pneumonia suspected. Vague hazy density on the left suspicious for contralateral extension of infection. Dictated and Authenticated by: Fernando Giordano MD. Ordering:HEATHER Zepeda MD
[2022-08-07 04:23] LABS: Abs Immature Grans 0.03 10^3/uL (0.0-0.06); Absolute Basophil Count 0.03 10^3/uL (0.0-0.2); Absolute Eosinophil Count 0.13 10^3/uL (0.0-0.7); Absolute Lymphocyte Count 0.57 10^3/uL (1.2-3.4); Absolute Monocyte Count 0.32 10^3/uL (0.1-0.8); Basophils % 0.5; Eosinophils % 2.2; HCT 39.5 % (36.0-46.0); HGB 13.3 g/dL (11.2-15.7); Immature Grans % 0.5; Lymphocytes % 9.9; MCH 31.4 pg (27.0-33.0); MCHC 33.7 % (32.0-36.0); MCV 93 fL (80-95); MPV 9.3 fL (8.0-11.0); Monocytes % 5.5; Neutrophils % 81.4; Platelet Count 145 10^3/uL (130-400); RBC 4.23 10^6/uL (3.93-5.22); RDW-SD 47.3 fL; WBC 5.78 10^3/uL (4.4-10.8)
[2022-08-07] MEDS: ACETAMINOPHEN 1,000 MG/100 ML BTL 400 MG IVPB ×2 (04:26→11:30)
[2022-08-07] MEDS: Dexamethasone 10 MG/ML VIAL IVP (04:27)
[2022-08-07] MEDS: Lactated Ringers 1,000 ML 1000 ML IV (04:27)
[2022-08-07] MEDS: Levalbuterol 1.25 MG/3 ML UPD VIAL UPD ×5 (04:27→20:08)
[2022-08-07] MEDS: levoFLOXacin 750 MG/150 ML BAG 100 MG IVPB (04:28)
[2022-08-07] MEDS: Ondansetron 4 MG/2 ML VIAL IVP ×2 (04:28→11:26)
[2022-08-07 04:37] LABS: ALT 15 U/L (14-59); AST 16 U/L (15-37); Albumin 3.7 g/dL (3.4-5.0); Alkaline Phosphatase 80 U/L (46-116); Anion Gap 10.2 mmol/L (3-11); BUN 9 mg/dL (7-18); Bilirubin, Total 0.9 mg/dL (0.2-1.0); CO2 25.8 mmol/L (21.0-32.0); CREATININE 0.7 mg/dL (0.55-1.02); Calcium 9.6 mg/dL (8.5-10.1); Chloride 101 mmol/L (98-107); Estimated GFR 123.01 (mL/min/1.73m2); Glucose 125 mg/dL (74-106); Potassium 4.3 mmol/L (3.5-5.1); Sodium 137 mmol/L (136-145)
--- NOTE | 2022-08-07 05:23 | W.PM.HP.N ---
Date of service: 08/07/22 Time of Service: 05:23 Assessment and Plan Assessment and plan (1) RSV (respiratory syncytial virus pneumonia): Status: Acute Assessment and plan: RSV. The pneumonia is more likely than not direct manifestation of RSV though cannot rule out bacterial superinfection (arguing against is normal white count, will also check procal). Oxygenating well at present. Will continue general supportive measures but continue Levaquin for now. I see no evidence of bronchospasm at present so I think we can hold on any further steroids or bronchodilators at this point. History of Present Illness History of Present Illness Chief Complaint: cough Narrative: 27 female with developmental delay, seen here yesterday with several days of cough, congestion, sore throat, LAM. RLL pneumonia noted, sent home on Levaquin. Returns with persistent symptoms, nausea, not taking good PO. In ER findings of note for tachycardia and tachypnea, with O2 sats high 90s. White count normal but lymphopenia noted. CXR shows worsening RLL pneumonia and possibly some involvement on left. COVID and flu are negative, RSV is positive. Patient given steroids and updrafts (note, no reports of wheezing) along with Zofran and IV Levaquin. I was asked to evaluate for admission. Review of Systems Narrative: per HPI PFSH All Active Problems Pneumonia (Acute) Pneumonia (Acute) RSV (respiratory syncytial virus pneumonia) (Acute) Left wrist pain (Acute) Ganglion cyst of volar aspect of left wrist (Acute) Chromosome 1p36 deletion syndrome (Chronic) Splenomegaly (Chronic ~2007) Idiopathic, s/p partial splenectomy with recurrence. Fatty liver (Chronic ~06/2018) [place] [facility] [place] with negative fibroscan and normal LFTs. No further workup indicated. 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) ADHD (attention deficit hyperactivity disorder) (Chronic) Medical History Major depressive disorder Subclinical hypothyroidism (~08/2017) Velopharyngeal insufficiency, congenital S/p pharyngoplasty Surgical History H/O oral surgery X 3 History of partial splenectomy (01/02/11) History of surgery on arm (07/07/09) Closed reduction and percutaneous pinning of displaced supracondylar fracture of left distal humerus S/P pharyngoplasty (10/03/04) Family History Self Adopted Mother Fragile X syndrome Social History Smoking/Tobacco Use Status: Never Second Hand Exposure: No Smoking risk assessment performed?: Yes Alcohol Intake: current Alcohol Intake frequency: a few times a month Alcohol type: other Drug use: Never Substance use type: does not use Adopted: Yes Caregiver/Support person: Yes (Mother) Foster care: No Household members: adopted family Housing: house Communication Needs: None Do you need help understanding health information?: Often current occupation: [employer] Pets and animals: Yes Pets and animals: cat(s) and dog(s) Sexually active: No Do you think of yourself as: straight/heterosexual What is your relationship status?: never How often do you talk on the phone with friends or family?: three or more times per week How often do you get together with friends or relatives?: three or more times per week Do you belong to any clubs or organized social groups?: yes Panel score (0-1 are the most socially isolated patients): 2 What type of physical activity do you participate in: regular exercise, other Details: Rock climbing and running Duration: 45-60 minutes/day Frequency: 3-4 times per week Delia/Episcopalian: Buddhist Special delia needs: No Seatbelt use: always Helmet use: Yes Water heater temp set <120 deg: Yes Working smoke detector in home: Yes Fire extinguisher in home: Yes Carbon monox detector in home: Yes Firearms in home: No Do you feel safe at home: Yes Do you feel safe in your relationship?: Yes Female Reproductive History Menstrual control method: pills History History 0 Para Hx # Term Pregnancies Multiple births Hx # Pregnancies Ectopic pregnancies AB induced Hx Number of Living Children AB spontaneous Meds Allergies and Home Medications Allergies Allergy/AdvReac Type Severity Reaction Status Date / Time amoxicillin Allergy Intermediate RASH Verified 08/07/22 04:03 cephalexin monohydrate Allergy Intermediate RASH Verified 08/07/22 04:03 [From Keflex] sulfamethoxazole Allergy Intermediate Hives Verified 08/07/22 04:03 [From Bactrim] trimethoprim [From Bactrim] Allergy Intermediate Hives Verified 08/07/22 04:03 clindamycin Allergy Hives Verified 08/07/22 04:03 Home Medications Medication Instructions Recorded Confirmed Type inulin 2 gram chewable tablet 2 g PO DAILY PRN 04/22/21 08/05/22 History (Fiber Gummies) triamcinolone acetonide 0.1 % 1 applic topical BID PRN atopic 06/29/21 08/05/22 Rx topical cream dermatitis #80 grams norethindrone 1 mg-e. estradiol 20 1 tab PO DAILY #28 tabs 03/21/22 08/05/22 Rx mcg (24)-iron 75 mg (4) chew tablet (Minastrin 24 Fe) albuterol sulfate 90 mcg/actuation 2 puff inhalation Q6H PRN 05/25/22 08/05/22 Rx aerosol inhaler (Proventil HFA) shortness of breath or wheezing #8.5 grams levofloxacin 750 mg tablet 750 mg PO DAILY 7 days #7 tabs 08/06/22 Rx Exam Narrative Exam Narrative: 118/66, 130, 37.2, 20, 94% (98% during my visit). HEENT atraumatic; neck supple; lungs no wheezing noted but limited exam due to ambient noise; heart tachy/regular; abdomen soft and NT' extremities w/o edema; neuro Ox3, moves all 4s Results Labs Result diagrams: 08/07/22 04:10 08/07/22 04:10 Labs: Laboratory Results - last 24 hr 08/07/22 08/07/22 08/07/22 02:57 04:10 04:10 WBC 5.78 RBC 4.23 Hgb 13.3 Hct 39.5 MCV 93 MCH 31.4 MCHC 33.7 RDW 14.0 Plt Count 145 MPV 9.3 Immature Gran % 0.5 Neutrophils % 81.4 Lymphocytes % 9.9 Monocytes % 5.5 Eosinophils % 2.2 Basophils % 0.5 Nucleated RBC % 0.0 Absolute Neutrophils 4.70 Absolute Lymphocytes 0.57 L Absolute Monocytes 0.32 Absolute Eosinophils 0.13 Absolute Basophils 0.03 Sodium 137 Potassium 4.3 Chloride 101 Carbon Dioxide 25.8 Anion Gap 10.2 BUN 9 Creatinine 0.7 Est GFR (CKD-EPI 2020) 123.01 Glucose 125 H Calcium 9.6 Total Bilirubin 0.9 AST 16 ALT 15 Alkaline Phosphatase 80 Total Protein 8.0 Albumin 3.7 COVID-19 Source Nasopharynx SARS-CoV-2 (PCR) Negative Influenza Type A (PCR) Negative Influenza Type B (PCR) Negative RSV (PCR) Positive A* Last Vital Signs Temp 37.7 C H 08/07/22 02:14 Pulse 137 H 08/07/22 04:27 Resp 24 08/07/22 04:27 BP 147/73 H 08/07/22 02:14 Pulse Ox 95 08/07/22 05:14
[2022-08-07 08:05] LABS: Procalcitonin 0.1 ng/mL
--- NOTE | 2022-08-07 09:01 | INITIAL_ITS ---
- If Service Date Differs Date of service: 08/07/22 Time of Service: 09:01 Care Management Initial Assess REASON FOR HOSPITALIZATION:: RSV PAST MEDICAL HISTORY/PAST SURGICAL HISTORY:: All Active Problems . Pneumonia (Acute). Pneumonia (Acute). RSV (respiratory syncytial virus pneumonia) (Acute). Left wrist pain (Acute). Ganglion cyst of volar aspect of left wrist (Acute). Chromosome 1p36 deletion syndrome (Chronic). Splenomegaly (Chronic ~2007). Idiopathic, s/p partial splenectomy with recurrence. Fatty liver (Chronic ~06/2018). Noted on US. [facility] [place] eval 08/2018 with negative fibroscan and normal LFTs. No further workup indicated. Mild developmental delay (Chronic). PMS (premenstrual syndrome) (Chronic). 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 ADHD (attention deficit hyperactivity disorder) (Chronic). Medical History . Major depressive disorder. Subclinical hypothyroidism (~08/2017). Velopharyngeal insufficiency, congenital. S/p pharyngoplasty. Surgical History . H/O oral surgery. X 3. History of partial splenectomy (01/02/11). History of surgery on arm (07/07/09). Closed reduction and percutaneous pinning of displaced supracondylar fracture of left distal humerus. S/P pharyngoplasty (10/03/04) PREVIOUS FUNCTIONAL STATUS/SOCIAL/FAMILY SUPPORTS:: Joselyn lives in [facility] with her parents Radha and Lorenzo. Joselyn is independant with her ADL's at baseline. Her parents provide her transportation, as she does not dri ve. Joselyn works two days a week at a local [employer]. CURRENT FUNCTIONAL STATUS:: CM called into Joselyn's room and spoke to pt and Radha via phone. Joselyn is awake, alert and sitting up in bed. Joselyn works a few days a week and would appreciate a letter for work prior to discharge. Also, Joselyn will need a nebulizer on discharge if needs home neb treatments after discharge. CM notified RT. Order will likely need to go to [facility]. ADVANCE DIRECTIVES:: None Has patient been provided with info about the portal/API?: Yes Did the patient sign up for the portal?: Yes (Prior to admission) CODE STATUS:: Full Code INSURANCE COVERAGE / FINANCIAL ISSUES:: Medicaid. Medicare. [employer] ([facility] only) CURRENT HOME/COMMUNITY SERVICES/EQUIPMENT:: None PRIMARY CARE PHYSICIAN:: [facility] POTENTIAL DISCHARGE NEEDS:: Nebulizer. Follow up appointments. Discharge plan of care PATIENT/FAMILY EDUCATION NEEDS:: Review discharge instructions, limitations, medications and plan to follow up with community providers. Discuss ask me three and goals of self care. ANTICIPATED BARRIERS TO DISCHARGE:: None identified TRANSPORTATION:: Via private vehicle with family. PLAN:: Joselyn requires close monitoring and treatment for RSV. Pt is currently being treated with IV abx, fluids and PRN Zofran and Neb treatments. Anticipate, pt will discharge home via private vehicle with family when medically ready. Pt will follow up with community providers and discharge plan of care as prescribed.
[2022-08-07] MEDS: Lactated Ringers 1,000 ML 100 ML IV (10:18)
--- NOTE | 2022-08-07 13:55 | W.PM.PROGNOT ---
Date of Service Date of service: 08/07/22 Time of Service: 13:55 Assessment and Plan Assessment and plan (1) Pneumonia: Status: Acute Assessment and plan: encourage respiratory toiletry w/ IS and Acapella; cont. Levaquin but switch to oral. I have put her on prednisone. Will do short course i.e. 5 days and put her on scheduled bronchodilators, cough medications. Professional time spent interviewing and examining patient, discussion of goals of care with hospital team (care management, nursing and consulting professionals) was 30 minutes. (2) RSV (respiratory syncytial virus pneumonia): Status: Acute Assessment and plan: supportive care w/ cough medications, bronchodilators, Tylenol Subjective Subjective Interval history since last seen: Patient no longer nauseated. Tolerating a diet. Still w/ harsh cough, minimal sputum production. She is afebrile. No leukocytosis. CXR c/w RLL pneumonia. She has RSV. No sputum culture or urine Legionella or Strep studies were done. I have ordered these as well as mycoplasma study. She remains on Levaquin. She is requesting her iv to be taken out. I will switch her to oral Levquin. She is also bronchspastic and I have ordered scheduled levalbuterol updrafts and cough medicine and prednisone. Exam Narrative Exam Narrative: Young female sitting up in bed who appears ill but not toxic. No respiratory distress LUngs: diffuse expiratory wheezes Heart: slightly tachycardic, no murmur Abdomen: soft, nontender Extremities: no edema or cyanosis Objective Last Vital Signs Temp 36.7 C 08/07/22 07:00 Pulse 111 H 08/07/22 10:16 Resp 32 H 08/07/22 11:57 BP 108/72 08/07/22 07:00 Pulse Ox 94 08/07/22 10:16 Laboratory Results - last 24 hr 08/07/22 08/07/22 08/07/22 02:57 04:10 04:10 WBC 5.78 RBC 4.23 Hgb 13.3 Hct 39.5 MCV 93 MCH 31.4 MCHC 33.7 RDW 14.0 Plt Count 145 MPV 9.3 Immature Gran % 0.5 Neutrophils % 81.4 Lymphocytes % 9.9 Monocytes % 5.5 Eosinophils % 2.2 Basophils % 0.5 Nucleated RBC % 0.0 Absolute Neutrophils 4.70 Absolute Lymphocytes 0.57 L Absolute Monocytes 0.32 Absolute Eosinophils 0.13 Absolute Basophils 0.03 Sodium 137 Potassium 4.3 Chloride 101 Carbon Dioxide 25.8 Anion Gap 10.2 BUN 9 Creatinine 0.7 Est GFR (CKD-EPI 2020) 123.01 Glucose 125 H Calcium 9.6 Total Bilirubin 0.9 AST 16 ALT 15 Alkaline Phosphatase 80 Total Protein 8.0 Albumin 3.7 Procalcitonin COVID-19 Source Nasopharynx SARS-CoV-2 (PCR) Negative Influenza Type A (PCR) Negative Influenza Type B (PCR) Negative RSV (PCR) Positive A* 08/07/22 04:10 WBC RBC Hgb Hct MCV MCH MCHC RDW Plt Count MPV Immature Gran % Neutrophils % Lymphocytes % Monocytes % Eosinophils % Basophils % Nucleated RBC % Absolute Neutrophils Absolute Lymphocytes Absolute Monocytes Absolute Eosinophils Absolute Basophils Sodium Potassium Chloride Carbon Dioxide Anion Gap BUN Creatinine Est GFR (CKD-EPI 2020) Glucose Calcium Total Bilirubin AST ALT Alkaline Phosphatase Total Protein Albumin Procalcitonin 0.1 COVID-19 Source SARS-CoV-2 (PCR) Influenza Type A (PCR) Influenza Type B (PCR) RSV (PCR)
[2022-08-07] MEDS: predniSONE 20 MG TAB 60 MG PO (14:35)
[2022-08-07] MEDS: Benzonatate 100 MG CAP PO ×2 (14:35→19:45)
[2022-08-07] MEDS: Promethazine 25 MG TAB PO (15:47)
[2022-08-07] MEDS: guaiFENesin/CODEINE PHOSPHATE 10 ML CUP 5 ML PO (19:44)
[2022-08-07] MEDS: LORazepam 0.5 MG TAB PO (21:45)
[2022-08-07] MEDS: Melatonin 3 MG TAB 6 MG PO (21:45)
[2022-08-07] MEDS: Acetaminophen 325 MG TAB 650 MG PO (21:57)
[2022-08-07 23:11] LABS: Legionella Ag Detection Urine Negative (Negative)
[2022-08-08] VITALS (10 sets, daily range): BP systolic 110–120; BP diastolic 71–75; PULSE 86–116; RESP 1–28; TEMP 36.1–37.6; O2SAT 94–99
[2022-08-08] MEDS: Acetaminophen 325 MG TAB 650 MG PO (08:37)
[2022-08-08] MEDS: predniSONE 20 MG TAB 60 MG PO (08:38)
[2022-08-08] MEDS: Benzonatate 100 MG CAP PO ×3 (08:39→21:16)
[2022-08-08] MEDS: levoFLOXacin 500 MG, levoFLOXacin 250 MG 750 MG PO (08:39)
[2022-08-08] MEDS: guaiFENesin/CODEINE PHOSPHATE 10 ML CUP 5 ML PO ×2 (08:42→21:16)
[2022-08-08] MEDS: Levalbuterol 1.25 MG/3 ML UPD VIAL UPD ×4 (08:53→19:27)
--- NOTE | 2022-08-08 09:03 | PDOC.CMPRO ---
- If Service Date Differs Date of service: 08/08/22 Time of Service: 09:03 Care Management Progress Note S/O:Joselyn was sitting up in bed when CM met with her. She was coughing throughout the visit and appeared ill. Her Mom Radha was with her and stated that Joselyn has not slept much in the past 2 days. She has been sick for about 4 days. Her Mom indicated that she hopes that Joselyn will be able to go home tomorrow. In conversation, Joselyn and her Mom indicated that at baseline, Joselyn is very active. 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 Radha also shared that Joselyn represented [place] in the [employer] [place] in [place]. They do not anticipate needing any new services at discharge but were inquiring about a nebulizer that RT is working on. A: Joselyn is a 27 year old young woman admitted on 08/07/22 with RSV and pneumonia P: Anticipate Joselyn will discharge home with no new services when medically ready. She will follow up with community providers and discharge plan of care as prescribed and transport with family. CM will continue to support Joselyn and her discharge planning needs.
--- NOTE | 2022-08-08 09:42 | W.PM.PROGNOT ---
Date of Service Date of service: 08/08/22 Time of Service: 09:42 Assessment and Plan Assessment and plan (1) Pneumonia: Status: Acute Assessment and plan: Patient has not responded to Levaquin and had adequate trial (was first given dose on 08/05 in the ER and then took dose at home on 08/06 and was begun on IV levquin in the ER on 08/06 and has been on oral dose 750 mg on 08/07 and today. Her allergy to keflex is a rash. Mother does not recall what other antibiotics have been tried in the past w/ regard to other cephalosporins. I think a trial of Rocephin and Azithromycin is appropriate. I have asked anesthesia to place her iv again. She will be changed to an inpatient as her pneumonia has not improved well enough for her to go home on oral antibiotics and bronchodilators. Urine Legionella antigen and urine strep antigen are pending at this time. We will send another sputum specimen for culture and mycoplasma PCR Professional time spent interviewing and examining patient, discussion of goals of care with hospital team (care management, nursing and consulting professionals) was 20 minutes. (2) RSV (respiratory syncytial virus pneumonia): Status: Acute Assessment and plan: supportive care w/ cough medications, bronchodilators, Tylenol. I will put her on Zyrtec at night and put her on Afrin and Flonase during the day to help w/ the upper respiratory congestion Subjective Subjective Interval history since last seen: Patient slept last night after melatonin, ativan and Robitussin AC. She still is coughing and now is productive of thick yellow mucous. Sputum yesterday was unacceptable. Patient produced another specimen which I delivered to nursing to send to lab. Patient has now been on Levaquin since Sunday w/ no improvment. I spoke w/ Joselyn and her mother and am advising Joselyn go back on iv antibiotics and I will change to Rocephin and azithromycin. Exam Narrative Exam Narrative: YOung female who appears ill, toxic appearance but not in acute respiratory distress HEENT: very nasal sounding and boggy mucous membranes Lungs: some harsh rales on RLL, some end expiratory wheezing Heart: regular but tachycardic Objective Last Vital Signs Temp 37.6 C H 08/08/22 08:13 Pulse 110 H 08/08/22 09:00 Resp 16 08/08/22 09:00 BP 110/71 08/08/22 08:13 Pulse Ox 98 08/08/22 09:00
[2022-08-08] MEDS: Fluticasone NASAL SPRAY 16 GM BTL NS (12:30)
[2022-08-08] MEDS: cefTRIAXone 1 GM/50 ML BAG IVPB (12:30)
--- NOTE | 2022-08-08 12:32 | PHA.REVIEW2 ---
Pharmacy Admission Review - Admission Clinical Review (Last Reviewed 08/07/22 @ 05:29 by Adam Borrero MD) Pneumonia (Acute) Pneumonia (Acute) RSV (respiratory syncytial virus pneumonia) (Acute) amoxicillin Allergy (Intermediate, Verified 08/07/22 04:03) RASH cephalexin monohydrate [From Keflex] Allergy (Intermediate, Verified 08/07/22 04:03) RASH sulfamethoxazole [From Bactrim] Allergy (Intermediate, Verified 08/07/22 04:03) Hives trimethoprim [From Bactrim] Allergy (Intermediate, Verified 08/07/22 04:03) Hives clindamycin Allergy (Verified 08/07/22 06:41) Hives Resuscitation Status Full Code Height 5 ft 6 in Weight 77.111 kg - Renal Dosing Renal Dosing: BUN 9 mg/dL (7-18) 08/07/22 04:10 Creatinine 0.7 mg/dL (0.55-1.02) 08/07/22 04:10 Medications needing adjustments: Reviewed (Crcl ~128 mL/min current meds okreyna) - Anticoagulation Anticoagulation: Hgb 13.3 g/dL (11.2-15.7) 08/07/22 04:10 Hct 39.5 % (36.0-46.0) 08/07/22 04:10 Plt Count 145 10^3/uL (130-400) 08/07/22 04:10 Creatinine 0.7 mg/dL (0.55-1.02) 08/07/22 04:10 DVT Prophylaxis: N/A Therapeutic Anticoagulation: N/A - Opiate Usage Evaluate Pain Scale/Pains Meds: N/A - Relevant Labs Sodium 137 mmol/L (136-145) 08/07/22 04:10 Potassium 4.3 mmol/L (3.5-5.1) 08/07/22 04:10 Chloride 101 mmol/L (98-107) 08/07/22 04:10 Electrolytes, C-Reactive P, ESR: Reviewed - DM Control DM Control: Glucose 125 mg/dL (74-106) H 08/07/22 04:10 DM Control: N/A - Cardiac Review BP, HR, EF%: Reviewed (HR has been elevated so far this admission.) - Qtc Review QTc: N/A - IV to PO Switch IV Medications: Reviewed - Home Meds Home Med List reviewed: Reviewed Relevent Home Meds Not ordered & why?: albuterol (has levalbuterol ordered), inulin, levofloxacin (antibiotics were changed today), triamcinolone (PRN) - Current meds Current Medication Order Review: Reviewed - Comments Comments/Follow Ups: Watch HR, labs, serology, for culture results and for med changes. Antibiotic Review - Pharmacy Antibiotic Review Pharmacy Antibiotic Activity: Abx regimen adjustment (Pt. was not responding to the levofloxacin per provider so she was changed to ceftriaxone and azithromycin. Test doses given today due to patient's allergies.), C/S review (BC no growth @24H. Sputum gram stain gram positive josé luis)
[2022-08-08] MEDS: AZITHROMYCIN 500 MG in Normal Saline 500 ML 166.6 MG IVPB (13:38)
[2022-08-08 17:08] LABS: Streptococcus Pneumoniae Ag, U Negative (Negative)
[2022-08-08] MEDS: Normal Saline Flush 10 ML SYR IVP ×2 (17:38→21:17)
[2022-08-08] MEDS: Melatonin 3 MG TAB 6 MG PO (21:15)
[2022-08-08] MEDS: Cetirizine 10 MG TAB PO (21:16)
[2022-08-09] VITALS (8 sets, daily range): BP systolic 100–116; BP diastolic 65–76; PULSE 86–101; RESP 1–24; TEMP 36.8–37.5; O2SAT 96–98
[2022-08-09] MEDS: Levalbuterol 1.25 MG/3 ML UPD VIAL UPD ×4 (07:54→19:32)
[2022-08-09] MEDS: Benzonatate 100 MG CAP PO ×3 (08:20→20:10)
[2022-08-09] MEDS: predniSONE 20 MG TAB 60 MG PO (08:21)
[2022-08-09] MEDS: Fluticasone NASAL SPRAY 16 GM BTL NS (08:31)
[2022-08-09] MEDS: cefTRIAXone 1 GM/50 ML BAG IVPB (11:13)
[2022-08-09 11:53] LABS: M. pneumoniae Ab, IgG Negative (Negative); M. pneumoniae Ab, IgM Negative (Negative)
[2022-08-09] MEDS: guaiFENesin/CODEINE PHOSPHATE 10 ML CUP 5 ML PO ×2 (12:08→21:18)
[2022-08-09] MEDS: Oxymetazolone 0.05% SPRAY 15 ML BTL NS ×2 (12:09→20:10)
[2022-08-09] MEDS: Acetaminophen 325 MG TAB 650 MG PO (12:09)
[2022-08-09] MEDS: AZITHROMYCIN 500 MG in Normal Saline 500 ML 166 MG IVPB (13:44)
--- NOTE | 2022-08-09 15:29 | W.PM.PROGNOT ---
Date of Service Date of service: 08/09/22 Time of Service: 15:29 Assessment and Plan Assessment and plan (1) Pneumonia: Status: Acute Assessment and plan: Check procalcitonin. Continue empiric azithromycin/ceftriaxone. Continue scheduled + prn nebs, steroids, antitussives. Encourage pulmonary toilet. Add H2 perfecto as on prednisone. (2) RSV (respiratory syncytial virus pneumonia): Status: Acute Assessment and plan: Continue supportive care as above (3) DVT prophylaxis: Status: Acute Assessment and plan: Not required in an ambulatory 27 year old female (4) Discharge planning issues: Status: Acute Assessment and plan: Full code possible discharge home tomorrow Subjective Subjective Interval history since last seen: Ms Gomez states that she is feeling about the same. She endorses chest pain on coughing. Still SOB and feels congested. Cough is nonproductive. No dizziness, nausea. Exam Narrative Exam Narrative: General: Pleasant female who is A&Ox3, NAD HEENT: EOMI, MMM Heart: RRR, no m/r/g Lungs: scattered expiratory rhonchi B Abdomen: nondistended Extremities: no edema B Objective Last Vital Signs Temp 37.5 C 08/09/22 11:00 Pulse 101 H 08/09/22 11:00 Resp 20 08/09/22 11:00 BP 115/75 08/09/22 11:00 Pulse Ox 96 08/09/22 11:00 Laboratory Results - last 24 hr 08/07/22 08/07/22 07:55 08:19 M. pneumoniae Interp See Comment Mycoplasma pneumon IgG Negative Mycoplasma pneumon IgM Negative Ur Strep pneumoniae Ag Negative
[2022-08-09] MEDS: Normal Saline Flush 10 ML SYR IVP (16:28)
--- NOTE | 2022-08-09 17:44 | CMPROGNOTE_ITS ---
- If Service Date Differs Date of service: 08/09/22 Time of Service: 17:44 Care Management Progress Note S/O:Joselyn was sitting up in bed when CM met with her. Her Mom Radha was with her and stated that Joselyn slept well last night and continues to have an appetite. Joselyn did state that the coughing has continued and that she feels really shaky this morning. She remains afebrile and her vital signs are stable. Joselyn had verbalized yesterday that she wanted to go home today but is a greeable to remaining for one more day. A: Joselyn is a 27 year old young woman admitted on 08/07/22 with RSV and pneumonia P: Anticipate Joselyn will discharge home with no new services when medically ready. She will follow up with community providers and discharge plan of care as prescribed and transport with family. CM will continue to support Joselyn and her discharge planning needs.
[2022-08-09] MEDS: Cetirizine 10 MG TAB PO (20:09)
[2022-08-09] MEDS: Melatonin 3 MG TAB 6 MG PO (21:18)
[2022-08-09] MEDS: Famotidine 20 MG TAB PO (21:18)
[2022-08-10 03:40] VITALS: BP 127/81; PULSE 72; RESP 18; TEMP 35.8; O2SAT 97
[2022-08-10 06:44] LABS: Abs Immature Grans 0.04 10^3/uL (0.0-0.06); Absolute Basophil Count 0.04 10^3/uL (0.0-0.2); Absolute Eosinophil Count 0.17 10^3/uL (0.0-0.7); Absolute Lymphocyte Count 2.49 10^3/uL (1.2-3.4); Absolute Monocyte Count 0.42 10^3/uL (0.1-0.8); Absolute Neutrophil Count 2.38 10^3/uL (1.2-6.7); Basophils % 0.7; Eosinophils % 3.1; HCT 36.1 % (36.0-46.0); HGB 12.1 g/dL (11.2-15.7); Immature Grans % 0.7; Lymphocytes % 44.9; MCHC 33.5 % (32.0-36.0); MCV 93 fL (80-95); MPV 9.3 fL (8.0-11.0); Monocytes % 7.6; Platelet Count 173 10^3/uL (130-400); RDW 14.1 % (11.7-14.6); RDW-SD 47.5 fL; WBC 5.54 10^3/uL (4.4-10.8)
[2022-08-10 07:03] LABS: Anion Gap 8.4 mmol/L (3-11); BUN 14 mg/dL (7-18); CO2 24.6 mmol/L (21.0-32.0); CREATININE 0.6 mg/dL (0.55-1.02); Calcium 9.2 mg/dL (8.5-10.1); Chloride 102 mmol/L (98-107); Estimated GFR 127.67 (mL/min/1.73m2); Glucose 92 mg/dL (74-106); Magnesium 2.3 mg/dL (1.8-2.4); Potassium 3.9 mmol/L (3.5-5.1); Sodium 135 mmol/L (136-145)
[2022-08-10 07:29] LABS: Procalcitonin < 0.1 ng/mL
[2022-08-10 07:30] VITALS: BP 108/75; PULSE 86; RESP 18; TEMP 36.5; O2SAT 98
[2022-08-10] MEDS: Benzonatate 100 MG CAP PO ×2 (08:58→14:33)
[2022-08-10] MEDS: predniSONE 20 MG TAB 60 MG PO (08:58)
[2022-08-10] MEDS: Levalbuterol 1.25 MG/3 ML UPD VIAL UPD ×2 (08:59→14:33)
[2022-08-10] MEDS: Fluticasone NASAL SPRAY 16 GM BTL NS (08:59)
[2022-08-10] MEDS: Oxymetazolone 0.05% SPRAY 15 ML BTL NS (09:00)
--- NOTE | 2022-08-10 10:02 | DSE_ITS ---
Date of service: 08/10/22 Time of Service: 10:02 DS: Diagnosis Discharge Diagnosis (1) Pneumonia: Status: Acute (2) RSV (respiratory syncytial virus pneumonia): Status: Acute Discharge Plan Disposition Patient Disposition: Home Condition: Improving Discharge Details Reason For Visit: RSV, Pneumonia Admit Date/Time: 08/08/22 09:58 Admit Provider: Adam Borrero Attending Provider: Adam Borrero [facility] Hospital Course: Ms Gomez is a 27 year old female with PMHx of Chromosome 1p36 deletion, as well as fatty liver, splenomegaly, ADHD, who was a patient on [facility] hospitalist service from 08/07/22 until 08/10/22 for pneumonia due to RSV. There was a question of a secondary bacterial pneumonia as outpatient, and the patient had already been initiated on outpatient levofloxacin, but had not improved. She was continued on levofloxacin here, in addition to scheduled and prn bronchodilators, systemic steroid therapy, antitussives, flonase nasal spray, and antihistamines with relatively little improvement. Antibiotics were then changed to azithromycin/ceftriaxone on 08/08/22. This morning, on 08/10/22, the patient feels better. Her procalcitonin is negative, suggesting less of a possibility of a secondary bacterial pneumonia. However, given the antiinflammatory function of azithromycin, it may still be of benefit and is being prescribed on discharge to complete a 5 day course. She is being discharged with a 5 day prednisone taper as well. She is being discharged home with a prescription for a nebulizer machine and nebulized levalbuterol treatments. She has not required oxygen on this admission. She is medically stable for discharge home today. She should follow up with her PCP in 1-2 weeks. Care for patient in addition to completion of her discharge paperwork on the day of discharge took 45 minutes. Home Meds and New Rx's Prescriptions: New benzonatate 100 mg Capsule 100 mg PO TID PRN PRNQty: 30 0RF cetirizine 10 mg Tablet 10 mg PO QPM Qty: 30 0RF famotidine 20 mg Tablet 20 mg PO HS Qty: 7 0RF fluticasone propionate 50 mcg/actuation [place],Suspension 1 spray NS DAILY Qty: 16 0RF levalbuterol HCl 1.25 mg/3 mL Solution For Nebulization 1.25 mg UPD Q4H PRN PRN (Reason: shortness of breath or wheezing) Qty: 75 0RF prednisone 20 mg Tablet See Rx Instructions .ROUTE .COMPLEX Qty: 9 0RF Rx Instructions: 60 mg PO x 1 day (tomorrow), then 40 mg PO daily x 2 days, then 20 mg PO daily x 2 days, then stop azithromycin [Zithromax] 500 mg tablet 500 mg PO DAILY Qty: 2 0RF Rx Instructions: next dose tomorrow (08/11/22) at noon guaifenesin [Mucinex] 600 mg tablet extended release 12hr 600 mg PO Q12H PRN (Reason: cough) Qty: 14 0RF Continued triamcinolone acetonide 0.1 % cream 1 applic Topical BID PRN (Reason: atopic dermatitis) Qty: 80 4RF Rx Instructions: Apply small amount to affected areas twice a day as needed for rash Fiber Gummies 2 gram tablet,chewable 2 g PO DAILY PRN norethindrone-e.estradiol-iron [Minastrin 24 Fe] 1 mg-20 mcg(24) /75 mg (4) tablet,chewable 1 tab PO DAILY Qty: 28 0RF Discontinued albuterol sulfate [Proventil HFA] 90 mcg/actuation HFA aerosol inhaler 2 puff inhalation Q6H PRN (Reason: shortness of breath or wheezing) Qty: 8.5 0RF levofloxacin 750 mg tablet 750 mg PO DAILY 7 Days Qty: 7 0RF Discharge Instructions Instructions: Respiratory Syncytial Virus (DC), Bacterial Pneumonia (DC) Additional Instructions: Finish your antibiotics (azithromycin) and prednisone taper as prescribed. Return to the hospital with any fever, worsening breathing, chest pain, or bleeding. Follow up with your PCP as scheduled. Stand Alone Forms: Nursing Discharge Form Referrals: Aretha Parnell NP [Primary Care Provider] - 08/14/22 11:40 am Activity:: Activity as Tolerated Equipment/Supplies:: nebulizer machine Diet:: As Tolerated Discharge Orders Discharge Orders: Discharge Order (Routine); Ordered 08/10/22 Ordered By: Vicki Mahmood DS: Summary Time Spent with Patient providing and/or coordinating discharge services: Greater than 30 minutes Status at Discharge Functional status at discharge: independent ambulation Overall status at discharge: patient is progressing back to baseline Mental Status: mental status grossly normal Speech and Movement: speech and movement normal Mood: congruent mood Affect: normal affect Exam Narrative Exam Narrative: General: Pleasant female who is A&Ox3, NAD HEENT: EOMI, MMM Heart: RRR, no m/r/g Lungs: scattered expiratory rhonchi B, improved Abdomen: nondistended Extremities: no edema B Psych Mental Status: mental status grossly normal Speech and Movement: speech and movement normal Mood: congruent mood Affect: normal affect DS: Data Vitals/I&O Vitals and I&O: Vital Signs Temperature 36.5 C 08/10/22 07:30 Temperature Source Tympanic 08/10/22 07:30 Pulse 86 08/10/22 07:30 Pulse Rhythm Regular 08/10/22 09:04 Respiratory Rate 18 08/10/22 07:30 Respiratory Effort 08/10/22 09:04 Respiratory Depth Normal 08/10/22 09:04 Respiratory Pattern Normal 08/10/22 09:04 Blood Pressure 108/75 08/10/22 07:30 Blood Pressure Mean 68 08/07/22 05:31 Blood Pressure Position Sitting 08/07/22 02:14 Pulse Oximetry 98 08/10/22 07:30 Oxygen Delivery Method Room Air 08/10/22 07:30 Oxygen Flow Rate 0 08/10/22 07:30 Pain Level 0 08/09/22 23:26 Comment 08/09/22 11:00 Intake & Output 08/09/22 08/09/22 08/10/22 11:59 23:59 11:59 Intake Total 290 / 1160 870 / 1160 Balance 290 / 1160 870 / 1160 Intake: IV 50 / 560 510 / 560 Oral 240 / 600 360 / 600 Other: Comment pt voids independently. pt denies dysuria pt voids independently. pt denies dysuria Voiding Methods Toilet Data Completed and Pending Completed studies during hospitalization [Text1]: CXR 08/07/22: Interval worsening previously bilateral infiltrates greater on the right. Labs on day of discharge: Labs from last 24 hours 08/10/22 08/10/22 08/10/22 06:10 06:10 06:10 WBC 5.54 RBC 3.90 L Hgb 12.1 Hct 36.1 MCV 93 MCH 31.0 MCHC 33.5 RDW 14.1 Plt Count 173 MPV 9.3 Immature Gran % 0.7 Neutrophils % 43.0 Lymphocytes % 44.9 Monocytes % 7.6 Eosinophils % 3.1 Basophils % 0.7 Nucleated RBC % 0.0 Absolute Neutrophils 2.38 Absolute Lymphocytes 2.49 Absolute Monocytes 0.42 Absolute Eosinophils 0.17 Absolute Basophils 0.04 Sodium 135 L Potassium 3.9 Chloride 102 Carbon Dioxide 24.6 Anion Gap 8.4 BUN 14 Creatinine 0.6 Est GFR (CKD-EPI 2020) 127.67 Glucose 92 Calcium 9.2 Magnesium 2.3 Procalcitonin < 0.1 M. pneumoniae Interp Mycoplasma pneumon IgG Mycoplasma pneumon IgM 08/07/22 07:55 WBC RBC Hgb Hct MCV MCH MCHC RDW Plt Count MPV Immature Gran % Neutrophils % Lymphocytes % Monocytes % Eosinophils % Basophils % Nucleated RBC % Absolute Neutrophils Absolute Lymphocytes Absolute Monocytes Absolute Eosinophils Absolute Basophils Sodium Potassium Chloride Carbon Dioxide Anion Gap BUN Creatinine Est GFR (CKD-EPI 2020) Glucose Calcium Magnesium Procalcitonin M. pneumoniae Interp See Comment Mycoplasma pneumon IgG Negative Mycoplasma pneumon IgM Negative Preliminary micro results at discharge 08/08/22 09:28 Sputum Culture - Preliminary Sputum Normal Dana Maria Isabel Albicans 08/07/22 04:10 Blood Culture - Preliminary Blood NO GROWTH 72 HOURS 08/07/22 07:55 Blood Culture - Preliminary Blood NO GROWTH 48 HOURS PFSH All Active Problems (Updated 08/09/22 @ 15:34 by Vicki Mahmood MD) Discharge planning issues (Acute) DVT prophylaxis (Acute) Pneumonia (Acute) Pneumonia (Acute) RSV (respiratory syncytial virus pneumonia) (Acute) Left wrist pain (Acute) Ganglion cyst of volar aspect of left wrist (Acute) Chromosome 1p36 deletion syndrome (Chronic) Splenomegaly (Chronic ~2007) Idiopathic, s/p partial splenectomy with recurrence. Fatty liver (Chronic ~06/2018) Noted on US. [facility] [place] Hepatology eval 08/2018 with negative fibroscan and normal LFTs. No further workup indicated. 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) ADHD (attention deficit hyperactivity disorder) (Chronic) Medical History Major depressive disorder Subclinical hypothyroidism (~08/2017) Velopharyngeal insufficiency, congenital S/p pharyngoplasty Surgical History H/O oral surgery X 3 History of partial splenectomy (01/02/11) History of surgery on arm (07/07/09) Closed reduction and percutaneous pinning of displaced supracondylar fracture of left distal humerus S/P pharyngoplasty (10/03/04) Family History Self Adopted Mother Fragile X syndrome Social History Smoking/Tobacco Use Status: Never Second Hand Exposure: No Smoking risk assessment performed?: Yes Alcohol Intake: current Alcohol Intake frequency: a few times a month Alcohol type: other Drug use: Never Substance use type: does not use Adopted: Yes Caregiver/Support person: Yes (Mother) Foster care: No Household members: adopted family Housing: house Communication Needs: None Do you need help understanding health information?: Often current occupation: [employer] Pets and animals: Yes Pets and animals: cat(s) and dog(s) Sexually active: No Do you think of yourself as: straight/heterosexual What is your relationship status?: never How often do you talk on the phone with friends or family?: three or more times per week How often do you get together with friends or relatives?: three or more times per week Do you belong to any clubs or organized social groups?: yes Panel score (0-1 are the most socially isolated patients): 2 What type of physical activity do you participate in: regular exercise, other Details: Rock climbing and running Duration: 45-60 minutes/day Frequency: 3-4 times per week Delia/Restoration: Gnosticism Special delia needs: No Seatbelt use: always Helmet use: Yes Water heater temp set <120 deg: Yes Working smoke detector in home: Yes Fire extinguisher in home: Yes Carbon monox detector in home: Yes Firearms in home: No Do you feel safe at home: Yes Do you feel safe in your relationship?: Yes Female Reproductive History Menstrual control method: pills History History 0 Para Hx # Term Pregnancies Multiple births Hx # Pregnancies Ectopic pregnancies AB induced Hx Number of Living Children AB spontaneous
--- NOTE | 2022-08-10 10:05 | CMDISCH_ITS ---
- If Service Date Differs Date of service: 08/10/22 Time of Service: 10:05 LACE Index Scoring Tool - Questions: Length of Stay (in days): 2 Acuity (Admit via E.D.?): Yes E.D. Visits: 3 - Answers: Total Score: 8 Risk of Readmission: Low Risk Care Management Discharge Reason for Hospitalization: RSV Discharge Plan: Joselyn is discharged home via private vehicle with family. RT coordinated home nebulizer through [facility]. Joselyn will follow up with her PCP on 08/14/22 @1140 as scheduled. Patient/Family Education Needs: Review discharge instructions, limitations, medications and plan to follow up with PCP. Discuss ask me three and goals of self care. Services Needed at Discharge: DME Agency (Nebulizer through [employer]- RT Coordinated)
[2022-08-10] MEDS: AZITHROMYCIN 500 MG in Normal Saline 500 ML 166 MG IVPB (11:26)
[2022-08-10 12:37] VITALS: BP 116/77; PULSE 95; RESP 18; TEMP 36.9; O2SAT 96
--- NOTE | 2022-08-10 16:38 | CHAPLAIN ---
I visited with Joselyn and her mom, Radha, this morning. Radha is an [employer] [facility] nurse. They were expecting that Joselyn jj be discharged later today. She was in the ED on Sunday and tested negative for RSV, but returned on Sunday, and tested positive. Her mom has been staying with her. Joselyn seemed comfortable being here with her mom.
[2022-08-11 20:44] LABS: Mycoplasma Pneumoniae PCR Negative; Specimen source sputum
== END 2022-08-10 15:30 | disposition home or self-care (01) | DRG 194 ==
LOC: ER 06:56 → MS 06:59
PROVIDERS: Internal Medicine; Admitting Provider General Practice; Emergency Provider Emergency Medicine; PCP Nurse Practitioner Family; Visit Provider General Practice
DX: J12.1 Respiratory syncytial virus pneumonia (principal); Q93.89 Other deletions from the autosomes; J15.9 Unspecified bacterial pneumonia; K76.0 Fatty (change of) liver, not elsewhere classified; H47.033 Optic nerve hypoplasia, bilateral; F90.9 Attention-deficit hyperactivity disorder, unspecified type; R62.50 Unspecified lack of expected normal physiological development in childhood; Z90.81 Acquired absence of spleen; R11.0 Nausea
CPT/HCPCS: 36415; 80048; 80053; 84145; 87040; 87449; 87637; 94640; 96361; 96365; 96375; 99285; 71045; 83735; 85025; 86738; 87070; 87205; 87581; 87899; 94668; 99219; 99231; 99232; 99239; G0378; J0131; J0456; J0696; J1100; J1956; J2405; J7512; J7614

== ENCOUNTER 2023-03-27 16:54 | Outpatient (CLI) | payer OTHER, MEDICARE, MEDICAID, SELFPAY ==
--- NOTE | 2023-03-27 17:00 | DI.RAD_ITS ---
Exam(s) XR HAND RT COMPLETE EXAM: XR HAND RT COMPLETE CLINICAL HISTORY: evaluate fx. TECHNIQUE: 2D digital imaging was performed. Three views. COMPARISON: No exams were available for comparison FINDINGS: BONES: No acute fracture is present. No bony destructive lesion is seen. JOINTS: No dislocation present. SOFT TISSUE: Normal. IMPRESSION: Unremarkable radiographs of the right hand. DATA REPOSITORY: RADIATION DOSE DELIVERED:
== END 2023-03-27 17:14 ==
PROVIDERS: PCP Nurse Practitioner Family; Visit Provider Nurse Practitioner Family
DX: M79.641 Pain in right hand (principal)
CPT/HCPCS: 73130

== ENCOUNTER 2023-03-29 01:54 | Outpatient (CLI) | payer OTHER, MEDICARE, MEDICAID, SELFPAY ==
--- NOTE | 2023-03-29 07:30 | DI.MRI_ITS ---
Exam(s) MR ABDOMEN WO/W EXAM: MR ABDOMEN WO/W CLINICAL HISTORY: fatty liver,splenomegaly,hepatic hemangioma,h/o part splenectomy TECHNIQUE: Multiplanar multisequence MRI of the Abdomen was performed. CONTRAST MATERIAL: IV Contrast: 17 mL of Dotarem contrast administered. COMPARISON: US US ABDOMEN from 03/07/2023 FINDINGS: Liver: There is hepatomegaly. No hepatic mass is seen. There is a 2.4 x 1.6 cm nonenhancing lesion in the left lobe adjacent to the falciform ligament. This is best appreciated on the coronal images. This may represent an area of focal fatty infiltration. There is no enhancement seen. Pancreas: Unremarkable. Gallbladder and Bile Ducts: Unremarkable. Adrenals: Unremarkable. Kidneys: Unremarkable. Spleen: The spleen is enlarged. There is a 3 x 2.7 cm mass in the anterior aspect of the spleen. It is of slight hyperintensity on the T1 and T2 weighted images. After gadolinium there is diffuse enh ancement present. There is a persistent central scar. There are several vessel seen in the splenic hilum which may represent varices. Bowel: Unremarkable. Aorta: Unremarkable. Soft Tissues: Unremarkable. Bone: Unremarkable. Lymph Nodes: There are non-specific mildly prominent lymph nodes in the mesentery. IMPRESSION: 1. Indeterminate 3 cm lesion in the anterior spleen corresponding to the ultrasound finding. Differe ntial considerations include a hemangioma, hematoma, angioma or sclerosing angiomatoid nodular transf ormation. Follow-up examination in 3 months is recommended to document stability. 2. 2.4 cm area seen in the left lobe adjacent to the falciform ligament. This may represent focal fa tty infiltration. Three month follow-up examination is recommended for re-evaluation. 3. Hepatosplenomegaly. DATA REPOSITORY:
[2023-03-29] MEDS: Gadoterate meglumine 20 ML VIAL IVP (15:24)
--- NOTE | 2023-03-30 16:59 | DI.VRAD_ITS ---
Addendum created by Bailee Rojas MD on 03/30/2023 5:10:20 PM EDT: Addendum: Prominent mesenteric lymph nodes. Initial report created on 03/30/2023 4:59:15 PM EDT: PROCEDURE INFORMATION: Exam: MR Abdomen Without and With Contrast Exam date and time: 03/29/2023 2:25 PM Age: 28 years old Clinical indication: Condition or disease; Other: Fatty liver, splenomegaly, hepatic hemangioma, h/o part splenectomy TECHNIQUE: Imaging protocol: Magnetic resonance imaging of the abdomen without and with contrast. Contrast material: DOTAREM; Contrast volume: 17 ml; Contrast route: INTRAVENOUS (IV); COMPARISON: CR XR ABDOMEN FLAT PLATE 06/20/2018 8:41 AM and abdominal ultrasound 02/27/2023. FINDINGS: Liver: Hepatomegaly. Gallbladder and bile ducts: Unremarkable. No stones. No ductal dilation. Pancreas: Unremarkable. No ductal dilation. Spleen: Splenomegaly. Rounded 3 cm lesion in the anterior spleen. This is of slightly increased T1 slightly increased T2 signal. After the administration gadolinium demonstrates delayed diffuse enhancement and central scar. This is indeterminate. This could be due to an angioma, hematoma, hemangioma, or sclerosing angiomatoid nodular transformation. Follow-up is recommended. This was of decreased echogenicity recent ultrasound. Adrenal glands: Unremarkable. No mass. Kidneys and ureters: Unremarkable. No solid mass. No hydronephrosis. Stomach and bowel: Visualized stomach and intestines are unremarkable. Intraperitoneal space: No free fluid. Vasculature: Splenic varices. 2.4 cm lesion lobe near the falciform ligament has signal characteristics identical to the portal and hepatic veins could be focal dilated segment versus a cavernous hemangioma. Bones/joints: Unremarkable Soft tissues: Tiny bilateral pleural effusions IMPRESSION: One hepatosplenomegaly 2. Indeterminate 3 cm lesion anterior spleen could be due to benign or malignant etiology. Follow-up is recommended. Multiphasic contrast enhanced CT recommended 3. 2.4 cm lesion in the left hepatic lobe could be dilated venous structure or cavernous hemangioma. Multiphasic CT recommended Dictated and Authenticated by: Bailee oRjas MD. Ordering:MATTHEW Stewart MD
== END 2023-03-29 02:14 ==
LOC: DI 01:55
PROVIDERS: PCP Nurse Practitioner Family; Visit Provider Family Medicine
DX: D18.03 Hemangioma of intra-abdominal structures (principal); K76.0 Fatty (change of) liver, not elsewhere classified; R16.2 Hepatomegaly with splenomegaly, not elsewhere classified; Z90.81 Acquired absence of spleen
CPT/HCPCS: 74183

== ENCOUNTER → 2023-05-28 03:12 | Outpatient (CLI) | payer OTHER, MEDICARE, MEDICAID, SELFPAY ==
--- NOTE | 2023-05-28 07:11 | DI.CT_ITS ---
Exam(s) CT ABDOMEN W EXAM: CT ABDOMEN W CLINICAL HISTORY: multiphasic,further eval splenic lesion,SPLENOMEGALY,R16.1,D73.89 TECHNIQUE: Imaging Protocol: Axial computed tomography images with coronal and sagittal reformatted images were created and reviewed CONTRAST MATERIAL: Intravenous: Omnipaque 350 Contrast volume:100 ml Contrast route:IV - Oral: / no COMPARISON: CT FACIAL WITHOUT CONTRAST from 07/24/2011 CR XR ABDOMEN FLAT PLATE from 06/20/2018 US US abdomen pelvis from 06/20/2018 CR XR WRIST LT COMP NAVICULAR from 12/19/2021 MR MR UPPER JOINT LT WO from 01/02/2022 CR,XR XR ELBOW LT COMPLETE from 06/14/2022 US US ABDOMEN from 03/07/2023 MR MR ABDOMEN WO/W from 03/29/2023 FINDINGS: ABDOMEN: Lung Bases: Normal where visualized. Liver: Enlarged at 25 cm in length. Normal density. No measurable mass. Gallbladder and biliary tract: No radiodense calculus or dilation. Pancreas: Normal density, no abnormal calcifications or inflammatory process. Spleen: Enlarged at 24 cm in length. Rounded lesion seen in the anterior spleen not well visualized by CT. Contrast enhancement is diffuse and the lesion is less evident on the venous phase images.. Prominent splenic vein with mild varices. Kidneys: Normal size, contour and axis. No radiodense stones or obstructive uropathy. No masses seen. Adrenal glands: No masses seen. Abdominal Aorta: Abdominal portion non-dilated. Lymph nodes: Innumerable tiny mesenteric lymph nodes. Bowel: No wall thickening or evidence of obstruction. Stomach unremarkable as visualized. Bones: Unremarkable for age. IMPRESSION: Hepatosplenomegaly. Splenic lesion not well seen by CT. Findings may represent hemangioma, hamartoma, splenic lymphoma. Multiple tiny mesenteric lymph nodes. RADIATION DOSE DELIVERED: 1,120.01mGy.cm Total DLP DATA REPOSITORY: All CT scans at this facility are submitted to the National Radiology Data Registry (NRDR) Dose Index Registry (DIR) with the [employer] (ACR). RADIATION OPTIMIZATION: All CT scans at this facility use at least one of these dose optimization te chniques: automated exposure control; mA and/or kV adjustment per patient size (includes targeted exa ms where dose is matched to clinical indication); or iterative reconstruction.
[2023-05-28] MEDS: Normal Saline - Diluent 50 ML VIAL IJ (08:47)
[2023-05-28] MEDS: Normal Saline Flush 10 ML SYR IVP (08:49)
[2023-05-28] MEDS: Omnipaque 350 MG/ML 500 ML BTL-Imaging package IJ (08:50)
== END ==
PROVIDERS: PCP Nurse Practitioner Family; Visit Provider Nurse Practitioner Family
DX: D73.89 Other diseases of spleen (principal); R16.2 Hepatomegaly with splenomegaly, not elsewhere classified; I88.0 Nonspecific mesenteric lymphadenitis
CPT/HCPCS: 74160

== ENCOUNTER 2023-09-03 00:17 | Emergency (ER) | payer OTHER, MEDICARE, MEDICAID, SELFPAY ==
[2023-09-03] VITALS (207 sets, daily range): BP systolic 108–131; BP diastolic 58–82; PULSE 69–91; RESP 11–27; TEMP 36.5–36.8; O2SAT 95–100
--- NOTE | 2023-09-03 00:15 | DI.CT_ITS ---
Exam(s) CT ABDOMEN PELVIS W EXAM: CT ABDOMEN PELVIS W CLINICAL HISTORY: splenectomy 6 days ago, pain/vomiting. TECHNIQUE: Imaging Protocol: Axial computed tomography images with coronal and sagittal reformatted images were created and reviewed CONTRAST MATERIAL: Intravenous: Omnipaque-350 100cc Oral: None COMPARISON: CT CT ABDOMEN W from 05/28/2023 FINDINGS: VISUALIZED LUNG BASES: Mild increased markings in left lower lobe. Also very small left pleural effu ginette.. ABDOMEN: There is no ascites. LIVER: Liver size slightly prominent and there is steatosis of the liver evident. There are no discr ete focal hepatic lesions. No dilated intrahepatic ducts. GALLBLADDER/BILIARY: No obvious gallbladder pathology. CBD is not dilated. PANCREAS/SPLEEN: There has been interval splenectomy and possibly partial pancreatectomy at the level of the pancreatic tail. There is also coil material Behind the pancreatic body-tail junction region. There is an abnormal collection in the splenic bed region intimately associated with pancreatic tail. There is a stent-type device within this collecti on. There is also a percutaneous drain entering from the anterior left side and located peripherally , not directly in the area of the abnormal fluid collection. The abnormal fluid collection measures approximately 7 cm AP x 4 cm wide by 6 cm cephalocaudal and extends from the inferior wall of the sto mach caudally. There is no circumferential enhancement. ADRENALS: There are no significant adrenal masses. KIDNEYS:No cysts evident. No solid renal masses. No calculi nor hydronephrosis.. ABDOMINAL AORTA: Abdominal aorta is not enlarged. LYMPH NODES:There is no retroperitoneal nor paraaortic adenopathy. ABDOMINAL WALL: No evidence of significant anterior abdominal wall nor inguinal hernia. GI: There is no evidence of bowel obstruction. PELVIS: GI: No evidence of appendicitis.No evidence of sigmoid diverticulitis. LYMPH NODES: There is no intrapelvic nor inguinal adenopathy. REPRODUCTIVE: Age-appropriate URINARY BLADDER: No calculi nor obvious masses evident OSSEOUS: No fractures and no significant osseous lesions. IMPRESSION: 1. Compared to the prior CT scan of May 2023 there has been interval splenectomy. 2. There is an abnormal non peripherally enhancing fluid collection in the surgical bed of the splene ctomy and intimately associated with the pancreatic tail, this abnormal fluid collection measuring ap proximately 7 x 4 x 6 cm, not containing gas as nor peripheral enhancement. There is a silastic-type drainage stent within this collection and this may be attached to the pancreatic duct. In addition, there is a percutaneous surgically placed drain along the left side wall of the upper abdomen. This is not directly servicing the above described fluid collection. This fluid collection may be pseudo cyst. If it is suspicion for abscess than this is in good position to be percutaneously accessed for pigtail drainage catheter placement. 3. Hepatomegaly again noted. There is no ascites in the right-side of the abdomen-perihepatic region nor within the pelvis. RADIATION DOSE DELIVERED: Total DLP DATA REPOSITORY: All CT scans at this facility are submitted to the National Radiology Data Registry (NRDR) Dose Index Registry (DIR) with the [employer] (ACR). RADIATION OPTIMIZATION: All CT scans at this facility use at least one of these dose optimization te chniques: automated exposure control; mA and/or kV adjustment per patient size (includes targeted exa ms where dose is matched to clinical indication); or iterative reconstruction.
--- NOTE | 2023-09-03 00:32 | ED.GENADUL_ITS ---
Discharge Plan Disposition Patient Disposition: Transfer-Acute Inpatient Care Specific Acute Inpt Facility: [facility] Discharge Details Clinical Impression: Abdominal pain, Vomiting, Pancreatic pseudocyst Primary Care Provider: Aretha Parnell ED Provider: Car Rush Home Meds and New Rx's Prescriptions: No Action triamcinolone acetonide 0.1 % cream 1 applic Topical BID PRN (Reason: atopic dermatitis) Qty: 80 4RF Rx Instructions: Apply small amount to affected areas twice a day as needed for rash melatonin 2.5 mg tablet,chewable 2.5 mg PO HS PRN Fiber Gummies 2 gram tablet,chewable 2 g PO DAILY PRN norethindrone-e.estradiol-iron [Minastrin 24 Fe] 1 mg-20 mcg(24) /75 mg (4) tablet,chewable 1 tab PO DAILY Qty: 84 3RF escitalopram oxalate 10 mg tablet 10 mg PO DAILY Qty: 90 3RF ondansetron 4 mg tablet,disintegrating 4 mg PO Q8H PRN hydromorphone [Dilaudid] 2 mg tablet 2 mg PO Q4H acetaminophen 500 mg capsule 1,000 mg PO Q8H Medical Decision Making This is a 28-year-old female with a past medical history of 1 P36 deletion syndrome, intellectual disability, splenomegaly with partial splenectomy at 15 years of age, hypothyroidism, who presents today 6 days postoperatively from [facility]. Per family the patient had a component of the left over spleen still attached to the pancreas. The decision was made to complete the splenectomy. Surgery was performed by Dr. Bill. patient had splenic artery embolization 6 days ago with subsequent 6 removal of the remaining spleen and the end of the pancreas. She had a JOSE G drain placed postoperatively, and then was discharged in the last 24 hours. Since then she has had increased pain, vomiting, has not been eating and drinking at all at home, and has been retching. She has had about 45 cc total of drainage since she was discharged in her drain. No blood in her vomit. She has not had any bowel movements since prior to surgery. No other complaints at this time. Mother is at bedside. Abdomen demonstrates mild tenderness throughout, JOSE G drain has about 15 cc of fluid which is serosanguineous. Mucous membranes are dry. Will rehydrate with a liter of normal saline to start, give Zofran, Compazine, and morphine for the pain. Will get a CT scan to evaluate for intra-abdominal abscess, fluid leak, or other complication. Will monitor closely and reassess. 2:[address] scan results demonstrate left upper quadrant collection right glee insurance claim representative of a pseudocyst. Measurements are not given in radiology read, however personal measurements demonstrate greater than 5 cm in diameter. Laboratory workup shows evidence of an elevated white count of nearly 18, hemoglobin of 10.9, platelets 400, left shift is present with an elevated ESR 48, normal lactate, CRP of 13.5. We will reach out to [facility] for further discussion and operative management/surgical consultation. 3:49 AM Discussed the case with Dr. Stark of the [facility] surgery. Case was reviewed, labs and imaging were reviewed. Patient has been accepted to [facility] for evaluation. Patient will be transferred to the emergency department for surgical evaluation. Patient will remain here in the ED for the time being until transport can be arranged. Likely earliest transport is 7 AM. I have extensively reviewed the treatment plan with the patient. I have addressed all patient concerns at this time. I have also discussed the plan with the admitting physician and they agree with the current assessment and plan and have agreed to assume responsibility for the patient. All parties demonstrate verbal understanding and agreement with our assessment and plan at this time. The documentation in this chart was dictated using [employer] dictation software. Please excuse any dictation errors. At time of transfer the patient was reassessed and continued to demonstrate No signs of acute respiratory distress requiring intubation, hemodynamic instability requiring pressor support, or rapidly declining mental status. Repeat exam demonstrates improvement of pain but still pain is present. Patient still states that she feels quite nauseous. FINDINGS: Liver: Normal. No mass. Gallbladder and bile ducts: Normal. No calcified stones. No ductal dilation. Pancreas: Normal. No ductal dilation. Spleen: Status post splenectomy. Adrenal glands: Normal. No mass. Kidneys and ureters: Normal. No hydronephrosis. Stomach and bowel: Unremarkable. No obstruction. No mucosal thickening. Appendix: No evidence of appendicitis. Intraperitoneal space: Unremarkable. No free air. No significant fluid collection. Vasculature: Unremarkable. No abdominal aortic aneurysm. Lymph nodes: Unremarkable. No enlarged lymph nodes. Urinary bladder: Unremarkable as visualized. Reproductive: Unremarkable as visualized. Bones/joints: Unremarkable. No acute fracture. Soft tissues: Unremarkable. Other findings: Left upper quadrant collection likely represents pseudocyst. Left upper quadrant drainage catheter. IMPRESSION: Left upper quadrant collection likely represents pseudocyst. Thank you for allowing us to participate in the care of your patient. Dictated and Authenticated by: Joseluis Jaime MD 09/03/2023 2:11 AM Eastern Time ([place] & [place]) HPI General Date/Time Provider Initiated Documentation: 09/03/23 00:19 . HPI Narrative: This is a 28-year-old female with a past medical history of 1 P36 deletion syndrome, intellectual disability, splenomegaly with partial splenectomy at 15 years of age, hypothyroidism, who presents today 6 days post operatively from [facility]. Per family the patient had a component of the left over spleen still attached to the pancreas. The decision was made to complete the splenectomy. Patient had splenic artery embolization 6 days ago with subsequent 6 removal of the remaining spleen and the end of the pancreas. She had a JOSE G drain placed postoperatively, and then was discharged in the last 24 hours. Since then she has had increased pain, vomiting, has not been eating and drinking at all at home, and has been retching. She has had about 45 cc total of drainage since she was discharged in her drain. No blood in her vomit. She has not had any bowel movements since prior to surgery. No other complaints at this time. Mother is at bedside. Related Data Home Medications Medication Instructions Recorded Confirmed inulin 2 gram chewable tablet 2 g PO DAILY PRN 04/22/21 09/03/23 (Fiber Gummies) triamcinolone acetonide 0.1 % 1 applic topical BID PRN atopic 06/29/21 09/03/23 topical cream dermatitis #80 grams norethindrone 1 mg-e. estradiol 20 1 tab PO DAILY #84 tabs 01/29/23 09/03/23 mcg (24)-iron 75 mg (4) chew tablet (Minastrin 24 Fe) melatonin 2.5 mg chewable tablet 2.5 mg PO HS PRN 02/23/23 09/03/23 escitalopram oxalate 10 mg tablet 10 mg PO DAILY #90 tabs 03/14/23 09/03/23 acetaminophen 500 mg capsule 1,000 mg PO Q8H 09/03/23 09/03/23 hydromorphone 2 mg tablet 2 mg PO Q4H 09/03/23 09/03/23 (Dilaudid) ondansetron 4 mg disintegrating 4 mg PO Q8H PRN 09/03/23 09/03/23 tablet Previous Rx's Medication Instructions Recorded triamcinolone acetonide 0.1 % 1 applic topical BID PRN atopic 06/29/21 topical cream dermatitis #80 grams norethindrone 1 mg-e. estradiol 20 1 tab PO DAILY #84 tabs 01/29/23 mcg (24)-iron 75 mg (4) chew tablet (Minastrin 24 Fe) escitalopram oxalate 10 mg tablet 10 mg PO DAILY #90 tabs 03/14/23 Allergies Allergy/AdvReac Type Severity Reaction Status Date / Time amoxicillin Allergy Intermediate RASH Verified 09/03/23 00:21 cephalexin monohydrate Allergy Intermediate RASH Verified 09/03/23 00:21 [From Keflex] sulfamethoxazole Allergy Intermediate Hives Verified 09/03/23 00:21 [From Bactrim] trimethoprim [From Bactrim] Allergy Intermediate Hives Verified 09/03/23 00:21 clindamycin Allergy Hives Verified 09/03/23 00:21 General Stated Complaint: Abd Prob BEKAH: 3 Review of Systems All systems reviewed & are unremarkable except as noted in HPI and below PFSH All Active Problems (Updated 09/03/23 @ 03:51 by Car Rush DO) Pancreatic pseudocyst (Acute) Vomiting (Acute) Abdominal pain (Acute) Splenomegaly (Chronic ~2007) Idiopathic, s/p partial splenectomy with recurrence. 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) Mild developmental delay (Chronic) Obesity (Chronic) Medical History Major depressive disorder Velopharyngeal insufficiency, congenital S/p pharyngoplasty Subclinical hypothyroidism (~08/2017) Surgical History History of partial splenectomy (01/02/11) History of surgery on arm (07/07/09) Closed reduction and percutaneous pinning of displaced supracondylar fracture of left distal humerus H/O oral surgery X 3 S/P pharyngoplasty (10/03/04) Family History Self Adopted Mother Fragile X syndrome Social History Smoking/Tobacco Use Status: Never Second Hand Exposure: No Smoking risk assessment performed?: Yes Alcohol Intake: current Alcohol Intake frequency: holidays/special occasions only Drug use: Never Substance use type: does not use Adopted: Yes Caregiver/Support person: Yes (Mother) Foster care: No Household members: adopted family Housing: house Communication Needs: None Do you need help understanding health information?: Often current occupation: [employer] Pets and animals: Yes Pets and animals: cat(s) and dog(s) Sexually active: No Do you think of yourself as: straight/heterosexual What is your relationship status?: never How often do you talk on the phone with friends or family?: three or more times per week How often do you get together with friends or relatives?: three or more times per week Do you belong to any clubs or organized social groups?: yes Panel score (0-1 are the most socially isolated patients): 2 What type of physical activity do you participate in: regular exercise, other Details: Rock climbing and running Duration: 45-60 minutes/day Frequency: 3-4 times per week Delia/Bahai: Christianity Special delia needs: No Seatbelt use: always Helmet use: Yes Water heater temp set <120 deg: Yes Working smoke detector in home: Yes Fire extinguisher in home: Yes Carbon monox detector in home: Yes Firearms in home: No Do you feel safe at home: Yes Do you feel safe in your relationship?: Yes Female Reproductive History Menstrual control method: pills History History 0 Para Hx # Term Pregnancies Multiple births Hx # Pregnancies Ectopic pregnancies AB induced Hx Number of Living Children AB spontaneous Exam Narrative Exam Narrative: 1.Const: Well-nourished, Well-developed, appearing stated age 2.Eyes: PERRL, no conjunctival injection, and symmetrical lids. 3.ENT: Atraumatic external nose and ears. Dry MM. Neck: Symmetric, trachea midline, No thyromegaly. 4.CVS: +S1/S2, No murmurs or gallops. Peripheral pulses 2+ and equal in all extremities. Brisk capillary refill in all extremities. 5.RESP: Unlabored respiratory effort. Clear to auscultation bilaterally. No wheezes rales or rhonchi 6.GI: Soft, tenderness throughout, incision sites are clean dry and intact with present Dermabond. JOSE G drain in place with about 50 cc of current fluid in it. Fluid is serosanguineous. 7.MSK: Normocephalic/Atraumatic, Extremities w/o deformity or ttp No cyanosis or clubbing, Normal movement of all extremities 8.Skin: Warm, Dry. No rashes or lesions. 9.Neuro: manager of school II-XII grossly intact. Sensation grossly intact, no focal neurologic deficits. 10.Psych: (AAO) x3. Appropriate mood and affect Course Vital Signs Vital signs: Vital Signs Temperature 36.5 C 09/03/23 00:24 Pulse 91 H 09/03/23 00:24 Respiratory Rate 27 H 09/03/23 00:24 Blood Pressure 130/82 09/03/23 00:24 Pulse Oximetry 100 09/03/23 00:24 Temperature 36.5 C 09/03/23 00:24 Temperature Source Temporal Artery Scan 09/03/23 00:24 Pulse 91 H 09/03/23 00:24 Respiratory Rate 27 H 09/03/23 00:24 Blood Pressure 130/82 09/03/23 00:24 Blood Pressure Position Sitting 09/03/23 00:24 Pulse Oximetry 100 09/03/23 00:24 Oxygen Delivery Method Room Air 09/03/23 00:24 Oxygen Flow Rate 0 09/03/23 00:24 Pain Level 10 09/03/23 00:24 Lab/Test Results Lab/Test Results: 09/03/23 00:29 Blood Blood Culture - Pending 09/03/23 00: Blood Blood Culture - Pending
[2023-09-03] MEDS: Ondansetron 4 MG/2 ML VIAL IVP ×2 (00:46→07:46)
[2023-09-03 00:53] LABS: Abs Immature Grans 0.11 10^3/uL (0.0-0.06); Absolute Basophil Count 0.18 10^3/uL (0.0-0.2); Absolute Eosinophil Count 0.57 10^3/uL (0.0-0.7); Absolute Lymphocyte Count 3.15 10^3/uL (1.2-3.4); Absolute Monocyte Count 2.76 10^3/uL (0.1-0.8); Absolute Neutrophil Count 11.14 10^3/uL (1.2-6.7); Eosinophils % 3.2; HCT 33.1 % (36.0-46.0); HGB 10.9 g/dL (11.2-15.7); Immature Grans % 0.6; Lactate 0.8 mmol/L (0.6-1.4); Lymphocytes % 17.6; MCH 31.2 pg (27.0-33.0); MCHC 32.9 % (32.0-36.0); MCV 95 fL (80-95); MPV 9.3 fL (8.0-11.0); Monocytes % 15.4; Neutrophils % 62.2; Platelet Count 409 10^3/uL (130-400); RBC 3.49 10^6/uL (3.93-5.22); RDW-SD 52.1 fL; WBC 17.91 10^3/uL (4.4-10.8)
[2023-09-03 00:56] LABS: ESR 48 mm/hr (0-20)
[2023-09-03 01:07] LABS: INR 1.2 (0.9-1.1); PTT Activated 34.6 sec (23.6-32.8); Prothrombin Time 11.9 sec (9.1-11.1)
[2023-09-03 01:11] LABS: ALT 34 U/L (14-59); AST 20 U/L (15-37); Albumin 2.7 g/dL (3.4-5.0); Alkaline Phosphatase 101 U/L (46-116); Anion Gap 11.9 mmol/L (3-11); BUN 11 mg/dL (7-18); Bilirubin, Total 0.5 mg/dL (0.2-1.0); C-Reactive Protein 13.58 mg/dL (0.0-0.3); CO2 25.1 mmol/L (21.0-32.0); CREATININE 0.6 mg/dL (0.55-1.02); Calcium 9.4 mg/dL (8.5-10.1); Chloride 101 mmol/L (98-107); Estimated GFR 126.87 (mL/min/1.73m2); Glucose 106 mg/dL (74-106); Lipase 48 U/L (16-77); Potassium 3.4 mmol/L (3.5-5.1); Sodium 138 mmol/L (136-145); Total Protein 7.1 g/dL (6.4-8.2)
[2023-09-03] MEDS: Omnipaque 350 MG/ML 100 ML BTL IJ (01:14)
[2023-09-03] MEDS: Normal Saline Flush 10 ML SYR IVP (01:15)
[2023-09-03] MEDS: Normal Saline - Diluent 50 ML VIAL IJ (01:15)
[2023-09-03] MEDS: Prochlorperazine 10 MG/2 ML VIAL IVP (01:18)
[2023-09-03] MEDS: Normal Saline 1,000 ML 1000 ML IV (01:18)
[2023-09-03 01:27] LABS: Procalcitonin 0.1 ng/mL
--- NOTE | 2023-09-03 02:12 | DI.VRAD_ITS ---
PROCEDURE INFORMATION: Exam: CT Abdomen And Pelvis With Contrast Exam date and time: 09/03/2023 1:04 AM Age: 28 years old Clinical indication: Vomiting; Abdominal pain; Prior surgery; Surgery date: 3-7 days post-operative; Surgery type: Splenectomy x last Sunday w partial pancreatectomy; Additional info: Pain/vomiting, splenectomy x last Sunday w partial pancreatectomy TECHNIQUE: Imaging protocol: Computed tomography of the abdomen and pelvis with contrast. Contrast material: OMNI 350; Contrast volume: 100 ml; Contrast route: INTRAVENOUS (IV); COMPARISON: CT ABDOMEN W 05/28/2023 8:49 AM FINDINGS: Liver: Normal. No mass. Gallbladder and bile ducts: Normal. No calcified stones. No ductal dilation. Pancreas: Normal. No ductal dilation. Spleen: Status post splenectomy. Adrenal glands: Normal. No mass. Kidneys and ureters: Normal. No hydronephrosis. Stomach and bowel: Unremarkable. No obstruction. No mucosal thickening. Appendix: No evidence of appendicitis. Intraperitoneal space: Unremarkable. No free air. No significant fluid collection. Vasculature: Unremarkable. No abdominal aortic aneurysm. Lymph nodes: Unremarkable. No enlarged lymph nodes. Urinary bladder: Unremarkable as visualized. Reproductive: Unremarkable as visualized. Bones/joints: Unremarkable. No acute fracture. Soft tissues: Unremarkable. Other findings: Left upper quadrant collection likely represents pseudocyst. Left upper quadrant drainage catheter. IMPRESSION: Left upper quadrant collection likely represents pseudocyst. Dictated and Authenticated by: Joseluis Jaime MD. Ordering:CARIN Yoon MD
[2023-09-03 02:17] LABS: Bilirubin Negative (Negative); Blood Large (Negative); Clarity Sl Cloudy (Clear); Glucose Negative (Negative); Ketones Negative (Negative); Leukocyte Esterase Small (Negative); Nitrite Negative (Negative); Urobilinogen >=8.0 mg/dL (Up to 0.2); pH 7.5 (5-8)
[2023-09-03 02:28] LABS: Bacteria Moderate HPF (Negative); C & S Indicated? No/Sq. Contamination; Crystals Negative HPF (Negative); Epithelial Cells Many HPF (Negative); Mucus Negative (Negative)
[2023-09-03] MEDS: HYDROmorphone 2 MG/ML SYR 1 MG IVP ×3 (02:54→07:40)
[2023-09-03 03:38] LABS: Diff Comment Agrees w/ Instrument; RBC Morphology Normal
[2023-09-03] MEDS: Lactated Ringers 1,000 ML 1000 ML IV (03:41)
[2023-09-03] MEDS: ACETAMINOPHEN 1,000 MG/100 ML BTL 400 MG IVPB (06:38)
[2023-09-03] MEDS: Ketorolac 15 MG/ML VIAL IVP (07:35)
== END 2023-09-03 08:06 | disposition short-term general hospital (02) ==
PROVIDERS: Emergency Provider Student in an Organized Health Care Education/Training Program; PCP Nurse Practitioner Family
DX: R10.30 Lower abdominal pain, unspecified (principal); G89.18 Other acute postprocedural pain; R11.2 Nausea with vomiting, unspecified; K86.3 Pseudocyst of pancreas; Q93.89 Other deletions from the autosomes
CPT/HCPCS: 80053; 83690; 84145; 85652; 87040; 96361; 96374; 96375; 96376; 99285; 74177; 81003; 81015; 83605; 85025; 85610; 85730; 86140; J0131; J0780; J1170; J1885; J2405; J3490

== ENCOUNTER 2023-11-19 03:14 | Outpatient (CLI) | payer OTHER, MEDICARE, MEDICAID, SELFPAY ==
[2023-11-19 12:27] LABS: HCT 42.6 % (36.0-46.0); HGB 13.8 g/dL (11.2-15.7); MCH 29.1 pg (27.0-33.0); MCHC 32.4 % (32.0-36.0); MCV 90 fL (80-95); MPV 9.6 fL (8.0-11.0); RBC 4.75 10^6/uL (3.93-5.22); RDW-SD 56.5 fL
[2023-11-19 12:39] LABS: Absolute Basophil Count 0.31 10^3/uL (0.0-0.2); Absolute Lymphocyte Count 7.38 10^3/uL (1.2-3.4); Absolute Monocyte Count 1.41 10^3/uL (0.1-0.8); Atypical Lymphocytes % 5; Diff Comment Manual Differential; Platelet Count 663 10^3/uL (130-400); RBC Morphology Normal
[2023-11-19 16:16] LABS: Hemoglobin A1C 5.7 % (<5.7)
[2023-11-19 16:49] LABS: ALT 28 U/L (14-59); AST 14 U/L (15-37); Albumin 3.7 g/dL (3.4-5.0); Alkaline Phosphatase 84 U/L (46-116); Anion Gap 15.1 mmol/L (3-11); BUN 13 mg/dL (7-18); Bilirubin, Total 0.3 mg/dL (0.2-1.0); CO2 19.9 mmol/L (21.0-32.0); CREATININE 0.7 mg/dL (0.55-1.02); Calcium 9.5 mg/dL (8.5-10.1); Calculated LDL 71 mg/dL (<100); Chloride 105 mmol/L (98-107); Cholesterol 134 mg/dL (<200); Estimated GFR 122.25 (mL/min/1.73m2); Glucose 134 mg/dL (74-106); HDL Cholesterol 29 mg/dL (40-60); Magnesium 1.8 mg/dL (1.8-2.4); Potassium 3.7 mmol/L (3.5-5.1); Sodium 140 mmol/L (136-145); TSH (W/Ref FT4) 2.55 uIU/mL (0.36-3.74); Total Protein 7.7 g/dL (6.4-8.2); Triglyceride 173 mg/dL (<150)
[2023-11-19 16:56] LABS: Vitamin B12 > 2000 pg/mL (193-986)
== END 2023-11-19 03:15 | disposition home or self-care (01) ==
LOC: LOS 03:14
PROVIDERS: PCP Nurse Practitioner Family; Visit Provider Nurse Practitioner Family
DX: R29.898 Other symptoms and signs involving the musculoskeletal system (principal); Z00.00 Encounter for general adult medical examination without abnormal findings
CPT/HCPCS: 36415; 80053; 80061; 82607; 83036; 83735; 84443; 85025

== ENCOUNTER → 2023-11-29 04:46 | Outpatient (CLI) | payer OTHER, MEDICARE, MEDICAID, SELFPAY ==
--- NOTE | 2023-11-29 08:00 | DI.MRI_ITS ---
Exam(s) MR BRAIN WO EXAM: MR BRAIN WO CLINICAL HISTORY: Upper and lower extremity weakness, tremors, headaCHES.[id number] TECHNIQUE: Multiplanar multisequence MRI of the brain was performed. COMPARISON: No exams were available for comparison FINDINGS: Exam limited by motion. VENTRICLES AND EXTRA AXIAL SPACES: Normal in size and morphology for the patient's age. MIDLINE SHIFT: None. CEREBRAL PARENCHYMA: No focus of restricted diffusion to suggest acute infarct. No space-occupying le ginette identified. No abnormal high signal lesions in the white matter. HEMORRHAGE: None. BRAINSTEM/CEREBELLUM: Normal. VISUALIZED PARANASAL SINUSES/MASTOIDS:Mucosal thickening. Vasculature: Normal flow void. PITUITARY GLAND: Unremarkable. ORBITS: Unremarkable. IMPRESSION: Exam limited by motion. No abnormality is identified. DATA REPOSITORY:
== END ==
PROVIDERS: PCP Nurse Practitioner Family; Visit Provider Nurse Practitioner Family
DX: R29.898 Other symptoms and signs involving the musculoskeletal system (principal)
CPT/HCPCS: 70551

== ENCOUNTER 2023-11-29 15:36 | Outpatient (CLI) | payer OTHER, MEDICARE, MEDICAID, SELFPAY ==
[2023-11-29 17:10] LABS: ALT 31 U/L (14-59); AST 19 U/L (15-37); Albumin 3.8 g/dL (3.4-5.0); Alkaline Phosphatase 89 U/L (46-116); Anion Gap 8.5 mmol/L (3-11); BUN 15 mg/dL (7-18); Bilirubin, Total 0.2 mg/dL (0.2-1.0); CO2 26.5 mmol/L (21.0-32.0); CREATININE 0.7 mg/dL (0.55-1.02); Calcium 9.9 mg/dL (8.5-10.1); Chloride 107 mmol/L (98-107); Estimated GFR 122.25 (mL/min/1.73m2); Glucose 98 mg/dL (74-106); Potassium 4.7 mmol/L (3.5-5.1); Sodium 142 mmol/L (136-145); Total Protein 7.8 g/dL (6.4-8.2)
== END 2023-11-29 15:37 | disposition home or self-care (01) ==
LOC: LBO 16:02
PROVIDERS: PCP Nurse Practitioner Family; Visit Provider Nurse Practitioner Family
DX: R29.898 Other symptoms and signs involving the musculoskeletal system (principal)
CPT/HCPCS: 36415; 80053

== ENCOUNTER 2024-04-30 03:15 | Outpatient (CLI) | payer OTHER, MEDICAID, SELFPAY ==
[2024-04-30 16:05] LABS: HCT 42.8 % (36.0-46.0); HGB 14.4 g/dL (11.2-15.7); MCH 31.7 pg (27.0-33.0); MCHC 33.6 % (32.0-36.0); MCV 94 fL (80-95); MPV 9.4 fL (8.0-11.0); Platelet Count 491 10^3/uL (130-400); RBC 4.54 10^6/uL (3.93-5.22); RDW 14.3 % (11.7-14.6); RDW-SD 49.1 fL; WBC 15.72 10^3/uL (4.4-10.8)
[2024-04-30 16:25] LABS: Hemoglobin A1C 5.5 % (<5.7)
[2024-04-30 16:37] LABS: Absolute Basophil Count 0.31 10^3/uL (0.0-0.2); Absolute Eosinophil Count 0.16 10^3/uL (0.0-0.7); Absolute Lymphocyte Count 6.45 10^3/uL (1.2-3.4); Atypical Lymphocytes % 7 %; Diff Comment Manual Differential; RBC Morphology Normal
[2024-04-30 17:03] LABS: ALT 37 U/L (14-59); AST 30 U/L (15-37); Alkaline Phosphatase 100 U/L (46-116); BUN 15 mg/dL (7-18); Bilirubin, Total 0.38 mg/dL (0.2-1.0); CREATININE 0.5 mg/dL (0.55-1.02); Calcium 10.5 mg/dL (8.5-10.1); Chloride 105 mmol/L (98-107); Estimated GFR 131.75 (mL/min/1.73m2); Glucose 100 mg/dL (74-106); Potassium 4.4 mmol/L (3.5-5.1); Sodium 138 mmol/L (136-145); TSH (W/Ref FT4) 1.98 uIU/mL (0.36-3.74); Total Protein 8.1 g/dL (6.4-8.2)
== END 2024-04-30 03:16 | disposition home or self-care (01) ==
LOC: LBO 03:16
PROVIDERS: PCP Nurse Practitioner Family; Visit Provider Nurse Practitioner Family
DX: Z00.00 Encounter for general adult medical examination without abnormal findings (principal); Q89.01 Asplenia (congenital); Z90.81 Acquired absence of spleen
CPT/HCPCS: 36415; 80053; 83036; 84443; 85025

== ENCOUNTER 2024-05-08 17:15 | Outpatient (REF) | payer OTHER, MEDICAID, SELFPAY ==
[2024-05-13 23:12] LABS: Midnight Cortisol <50 ng/dL (<100)
[2024-05-13 23:12] LABS: Midnight Cortisol <50 ng/dL (<100)
== END 2024-05-08 17:16 | disposition home or self-care (01) ==
LOC: LBN 17:15
PROVIDERS: PCP Nurse Practitioner Family; Visit Provider Nurse Practitioner Family
DX: F33.8 Other recurrent depressive disorders (principal); R73.03 Prediabetes; E66.8 Other obesity
CPT/HCPCS: 82530

== ENCOUNTER 2024-05-20 16:24 | Outpatient (REF) | payer OTHER, MEDICAID, SELFPAY | END 2024-05-20 16:25 | disposition home or self-care (01) | LOC: LBN 16:24 | PROVIDERS: PCP Nurse Practitioner Family; Visit Provider Nurse Practitioner Family | DX: J02.9 Acute pharyngitis, unspecified (principal); R68.89 Other general symptoms and signs; H61.22 Impacted cerumen, left ear | CPT/HCPCS: 87070 ==

== ENCOUNTER 2024-05-20 20:40 | Emergency (ER) | payer OTHER, MEDICARE, MEDICAID, SELFPAY ==
[2024-05-20 20:45] VITALS: BP 116/72; PULSE 102; RESP 20; TEMP 36.3; O2SAT 98
[2024-05-20] MEDS: LORazepam 1 MG TAB PO (21:37)
--- NOTE | 2024-05-20 22:15 | DI.RAD_ITS ---
Exam(s) XR WRIST RT COMPLETE EXAM: XR WRIST RT COMPLETE CLINICAL HISTORY: wrist pain. TECHNIQUE: 2D digital imaging was performed. Three views. COMPARISON: CR XR WRIST LT COMP NAVICULAR from 12/19/2021 FINDINGS: BONES: No acute fracture is present. No bony destructive lesion is seen. JOINTS: The carpal bones are normally aligned. SOFT TISSUE: Normal. IMPRESSION: Unremarkable radiographs of the right wrist. DATA REPOSITORY: RADIATION DOSE DELIVERED:
--- NOTE | 2024-05-20 22:37 | PDOC.MHCN_ITS ---
Date of service: 05/20/24 Time of Service: 22:37 PHQ-9 Over the last 2 weeks, how often have you been bothered by any of the following problems? 1. Little interest or pleasure in doing things: not at all 2. Feeling down, depressed, or hopeless: more than half the days 3. Trouble falling or staying asleep, or sleeping too much: several days 4. Feeling tired or having little energy: nearly every day 5. Poor appetite or overeating: not at all 6. Feeling bad about yourself - or that you are a failure or have let yourself and your family down: several days 7. Trouble concentrating on things, such as reading the newspaper or watching television: nearly every day 8. Moving or speaking so slowly that other people could have noticed? - Or the opposite - being so fidgety or restless that you have been moving around a lot more than usual: not at all 9. Thoughts that you would be better off or of hurting yourself in some way: not at all Total score: 10 If you checked off any problems, how difficult have these problems made it for you to do your work, take care of things at home, or get along with other people?: somewhat difficult Source: Developed by Drs. Dave Gambino, Shelly Davis, Fredy Kay and colleagues, with an educational shaka from [employer]. Suicide Severity Rate CSSRS Have you wished you were or wished you could go to sleep and not wake up?: No Have you actually had any thoughts of killing yourself?: No CSSRS3 Have you ever done anything, started to do anything or prepared to do anything to end your life?: No CSSRS4 Was this within the past three months?: No Screening Score Total Score: 0 Screening: Negative Mental Health Emergency Note Release [facility] release signed:: Yes Reason for Visit In the last 2 weeks has the pt presented for ES prior to today?: No Non Suicidal Self Injury Current: No History: No Safety Risk/Harm to Self or Others Current Ideation to Harm Self or Others: No Asssessment/Mental Status Appearance: Unremarkable Attitude: Cooperative Behavior: Unremarkable Speech: Normal Affect: Cogruent with mood Mood: Stressed, Depressed, Anxious and Angry Thought process: Unremarkable Hallucinations: No evidence Delusions: No Attention: Unremarkable Perception: Not impaired Orientation: Fully orientated Memory: Intact Insight: Fair Judgement: Fair Neurovegetative Symptoms Sleep: Decrease (cant sleep getting over a cold ) Appetitie: No change Interests: No change Energy: No change Libido: No change Substance Use: Do you use nicotine?: No Have you used substances in the last 7 days?: No Impression The client spoke is a soft tone of voice during the entirety of the assessment. Client reported that she has been upset since her parents took away her phone, IPad, and computer. The client informed this fiction and nonfiction writer prose that she is having problems with one of her friend groups. The client added that this friend group told the client she shouldn't be allowed to be in adaptive sports programs because her legs work. The client has been spending 12+ hours the past few day on this technology and her parents took it to give the client a break. The client did not respond well to this and had been running away due to anger. The client reported that this friend group has also been making her angry as she tried to explain that they hurt her feelings, but this friend group ignores the client. Client is set up with the agency and has just recently started to see a therapist. The client reported she has only seen him three times prior, but is interested in talking to her therapist about how to community with her parents and not let things build up and explode. The client also reported that she has be frustrated due to not having transportation to take he to her activates. The client scored a 10/27 on the PHQ-9 and reported no to the CSSRS questions. The client was able to participate in a safety plan and identify trigger, warning signs, and coping skills for when she gets angry. Plan/Disposition Recommended Disposition: [facility] Services [facility] Services: Therapy and Other ([facility] program ) and Therapy. Plan: The client was safety planned home and will she her therapist and cyanide case hardener 05/21/2024. The client will complete check in phone calls till 05/23/24 at 10am. The client expressed interest in additional supports with the agency, clients team at the agency will be informed this. Reports/communication Outcome discussed with: ED/Personnel
[2024-05-20 22:39] VITALS: BP 120/68; PULSE 92; RESP 16; TEMP 37; O2SAT 99
--- NOTE | 2024-05-20 22:46 | ED.GENADUL_ITS ---
Discharge Plan Disposition Patient Disposition: Home Condition: Stable Discharge Details Clinical Impression: Mood disorder Primary Care Provider: Aretha Parnell ED Provider: Jenn Tapia Home Meds and New Rx's Prescriptions: Continued clotrimazole 1 % cream 1 applic topical BID Qty: 45 1RF Rx Instructions: Apply to affected areas twice a day for 2-4wks or until resolution bupropion HCl [Wellbutrin XL] 150 mg tablet extended release 24 hr 300 mg PO DAILY Qty: 30 0RF triamcinolone acetonide 0.1 % cream 1 applic Topical BID PRN (Reason: atopic dermatitis) Qty: 80 4RF Rx Instructions: Apply small amount to affected areas twice a day as needed for rash norethindrone-e.estradiol-iron [Minastrin 24 Fe] 1 mg-20 mcg(24) /75 mg (4) tablet,chewable 1 tab PO DAILY Qty: 84 3RF Fiber Gummies 2 gram tablet,chewable 2 g PO DAILY PRN (Reason: constipation) Qty: 60 0RF melatonin 2.5 mg tablet,chewable 5 mg PO HS PRN (Reason: sleep) Qty: 60 0RF multivit with min-folic acid [Adult One Daily Gummies] 200 mcg tablet,chewable 2 tab PO DAILY Qty: 60 0RF Discharge Instructions Additional Instructions: please follow-up with your counselor please take your medications as prescribed try to stay away from social media as much as possible return earlier with new or worsening complaints Referrals: Aretha Parnell, JAYA [Primary Care Provider] - 2 days Discharge Data Discharge Date/Time-TO BE ENTERED AT DEPARTURE: 05/20/24 23:27 HPI General Date/Time Provider Initiated Documentation: 05/20/24 21:17 . HPI Narrative: This 29-year-old female with history of ADHD, chromosomal deletion syndrome, metabolic dysfunction developmental delay presents with report of agitation and outbursts with frequent rounding episodes. Parents states she has had similar symptoms in the past and has had to be de-escalated at home. Patient currently went to camp recently and on social media has been arguing with some campers that have been causing escalation in these behaviors per parents who are her guardians. They state that this happened last year as well and EMS was able to de-escalate and patient did not require emergency department assessment. She has not been hospitalized for this in the past. When asked if patient harmed herself she states that she was hitting objects but denies any additional intentional harm. Denies any chance of or any illicit substance use. Lives with parents. Related Data Home Medications ?Medication ?Instructions ?Recorded ?Confirmed norethindrone 1 mg-e. estradiol 20 1 tab PO DAILY #84 tabs 10/31/23 05/20/24 mcg (24)-iron 75 mg (4) chew tablet (Minastrin 24 Fe) clotrimazole 1 % topical cream 1 applic topical BID #45 grams 02/27/24 05/20/24 inulin 2 gram chewable tablet 2 g PO DAILY PRN constipation #60 03/14/24 05/20/24 (Fiber Gummies) tabs melatonin 2.5 mg chewable tablet 5 mg (2 x 2.5 mg) PO HS PRN sleep 03/14/24 05/20/24 #60 tabs multivitamin with minerals-folic 2 tab PO DAILY #60 tabs 03/14/24 05/20/24 acid 200 mcg chewable tablet (Adult One Daily Gummies) triamcinolone acetonide 0.1 % 1 applic topical BID PRN atopic 03/17/24 05/20/24 topical cream dermatitis #80 grams bupropion HCl 150 mg 24 hr tablet, 300 mg (2 x 150 mg) PO DAILY #30 04/30/24 05/20/24 extended release (Wellbutrin XL) tabs Previous Rx's ?Medication ?Instructions ?Recorded norethindrone 1 mg-e. estradiol 20 1 tab PO DAILY #84 tabs 10/31/23 mcg (24)-iron 75 mg (4) chew tablet (Minastrin 24 Fe) clotrimazole 1 % topical cream 1 applic topical BID #45 grams 02/27/24 inulin 2 gram chewable tablet 2 g PO DAILY PRN constipation #60 03/14/24 (Fiber Gummies) tabs melatonin 2.5 mg chewable tablet 5 mg (2 x 2.5 mg) PO HS PRN sleep 03/14/24 #60 tabs multivitamin with minerals-folic 2 tab PO DAILY #60 tabs 03/14/24 acid 200 mcg chewable tablet (Adult One Daily Gummies) triamcinolone acetonide 0.1 % 1 applic topical BID PRN atopic 03/17/24 topical cream dermatitis #80 grams bupropion HCl 150 mg 24 hr tablet, 300 mg (2 x 150 mg) PO DAILY #30 04/30/24 extended release (Wellbutrin XL) tabs Allergies Allergy/AdvReac Type Severity Reaction Status Date / Time amoxicillin Allergy Intermediate RASH Verified 05/20/24 20:49 cephalexin monohydrate (From Allergy Intermediate RASH Verified 05/20/24 20:49 Keflex) sulfamethoxazole (From Allergy Intermediate Hives Verified 05/20/24 20:49 Bactrim) trimethoprim (From Bactrim) Allergy Intermediate Hives Verified 05/20/24 20:49 ciprofloxacin (From Cipro) Allergy Unknown Hives Unverified 05/20/24 20:49 clindamycin Allergy Hives Verified 05/20/24 20:49 General Stated Complaint: PsychEval BEKAH: 2 Exam Narrative Exam Narrative: Alert and oriented 29-year-old female, appears anxious and agitated, answering questions appropriately, pupils equal round reactive, lungs clear to auscultation, some bruising and swelling to right wrist and abrasions to MCPs on the 2nd through 5th digits bilaterally, neurovascularly intact declined suicidality or homicidality Course Vital Signs Vital signs: Vital Signs Temperature 36.3 C L 05/20/24 20:45 Pulse 102 H 05/20/24 20:45 Respiratory Rate 20 05/20/24 20:45 Blood Pressure 116/72 05/20/24 20:45 Pulse Oximetry 98 05/20/24 20:45 Temperature 37 C 05/20/24 22:39 Temperature Source Tympanic 05/20/24 20:45 Pulse 92 H 05/20/24 22:39 Respiratory Rate 16 05/20/24 22:39 Respiratory Effort Normal 05/20/24 20:48 Blood Pressure 120/68 05/20/24 22:39 Blood Pressure Position Sitting 05/20/24 20:45 Pulse Oximetry 99 05/20/24 22:39 Oxygen Delivery Method Room Air 05/20/24 22:39 Oxygen Flow Rate 0 05/20/24 22:39 Medical Decision Making 29-year-old female with history of cognitive delay and chromosomal abnormality presenting with outbursts and agitation at home secondary to social media arguments per parents whom are patient's guardians and whom she resides. Denies any current suicidality feeling very anxious. Given 1 mg of Ativan. Has not been taking her medications over the course of the past week. Started meeting with counselor approximately 2 weeks ago. At this time I think patient requires mental health assessment, parents prefer that patient goes home with possible. Pending [facility] assessment at this time, Quality:SDOH Health Related Social Needs: No Data to Display [facility] All Active Problems (Updated 05/20/24 @ 23:00 by DAVID Pascual) Mood disorder (Acute) Asplenia (Chronic) Meningococcal serotype ACWY vaccine every 5 years (2028) and Meningococcal serotype B in a year (September 2024) and then every 2-3 years thereafter. 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) Mild developmental delay (Chronic) Medical History (Updated 05/20/24 @ 23:00 by DAVID Pascual) Pancreatitis (~09/06/23) Velopharyngeal insufficiency, congenital S/p pharyngoplasty Surgical History S/P splenectomy (08/29/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 History of partial splenectomy (01/02/11) History of surgery on arm (07/07/09) Closed reduction and percutaneous pinning of displaced supracondylar fracture of left distal humerus H/O oral surgery X 3 S/P pharyngoplasty (10/03/04) Family History Self Adopted Mother Fragile X syndrome Social History (Updated 03/03/24 @ 09:57 by Lilliana Banegas) Smoking/Tobacco Use Status: Never Second Hand Exposure: No Smoking risk assessment performed?: Yes Alcohol Intake: current Alcohol Intake frequency: holidays/special occasions only Alcohol type: other Drug use: Never Substance use type: does not use Adopted: Yes Caregiver/Support person: Yes (Mother) Foster care: No Household members: adopted family Housing: house Communication Needs: None Education Level: high school Do you need help understanding health information?: Often Pets and animals: Yes Pets and animals: cat(s) and dog(s) Sexually active: No Do you think of yourself as: straight/heterosexual Current gender identity: female What is your relationship status?: never How often do you talk on the phone with friends or family?: three or more times per week How often do you get together with friends or relatives?: three or more times per week Do you belong to any clubs or organized social groups?: yes Panel score (0-1 are the most socially isolated patients): 2 What type of physical activity do you participate in: regular exercise, other Details: Rock climbing and running Duration: 60-90 minutes/day Frequency: 3-4 times per week Delia/Alevism: Congregational Special delia needs: No Seatbelt use: always Helmet use: Yes Helmet use: always Drive intox or ride w/intox national dedicated truck driver: No Water heater temp set <120 deg: Yes Working smoke detector in home: Yes Fire extinguisher in home: Yes Carbon monox detector in home: Yes Firearms in home: No Do you feel safe at home: Yes Victim of physical abuse: No Victim of emotional abuse: No Victim of sexual abuse: No Would you like helpful sources: No Female Reproductive History Menstrual control method: pills History History 0 Para Hx # Term Pregnancies Multiple births Hx # Pregnancies Ectopic pregnancies AB induced Hx Number of Living Children AB spontaneous Sign Out Sign Out Data: Sign Out Comment: pending [facility] consultation and dispo Last updated by Jaylyn Bar PA at 05/20/24 22:56
--- NOTE | 2024-05-20 23:17 | W.EDPROG ---
Date of service: 05/20/24 Time of Service: 23:17 Medical Decision Making This patient was signed out to me. Please see previous notes for H&P and initial eval. In brief, 29yo F presenting with increased emotional lability, self harm behaviors. Pending [facility] evaluation. Offgoing clinician feels patient is appropriate for discharge with safety plan in place. [facility] evaluated patient; safety plan in place, recommended discharge home. Caregivers at bedside agreeable to this plan as well as patient. They do request a single dose of ativan (she was given ativan in the ED) in case she becomes agitated again;this is reasonable and she was discharged with one dose. Advised to followup with PCP for further medication managment. Discharged home; discharge instructions and return precautions were reviewed with patient and family who verbalized understanding. ALl questions were answered and they are in full agreement with the plan. Quality:SDOH Health Related Social Needs: No Data to Display Sign Out Sign Out Data: Sign Out Comment: pending [facility] consultation and dispo Last updated by Jaylyn Bar PA at 05/20/24 22:56 Discharge Plan Disposition Patient Disposition: Home Condition: Stable Discharge Details Clinical Impression: Mood disorder Primary Care Provider: Aretha Parnell ED Provider: Jenn Tapia Home Meds and New Rx's Prescriptions: Continued clotrimazole 1 % cream 1 applic topical BID Qty: 45 1RF Rx Instructions: Apply to affected areas twice a day for 2-4wks or until resolution bupropion HCl [Wellbutrin XL] 150 mg tablet extended release 24 hr 300 mg PO DAILY Qty: 30 0RF triamcinolone acetonide 0.1 % cream 1 applic Topical BID PRN (Reason: atopic dermatitis) Qty: 80 4RF Rx Instructions: Apply small amount to affected areas twice a day as needed for rash norethindrone-e.estradiol-iron [Minastrin 24 Fe] 1 mg-20 mcg(24) /75 mg (4) tablet,chewable 1 tab PO DAILY Qty: 84 3RF Fiber Gummies 2 gram tablet,chewable 2 g PO DAILY PRN (Reason: constipation) Qty: 60 0RF melatonin 2.5 mg tablet,chewable 5 mg PO HS PRN (Reason: sleep) Qty: 60 0RF multivit with min-folic acid [Adult One Daily Gummies] 200 mcg tablet,chewable 2 tab PO DAILY Qty: 60 0RF Discharge Instructions Additional Instructions: please follow-up with your counselor please take your medications as prescribed try to stay away from social media as much as possible return earlier with new or worsening complaints Referrals: Aretha Parnell NP [Primary Care Provider] - 2 days
[2024-05-20] MEDS: LORazepam 1 MG TAB (23:29)
--- NOTE | 2024-05-20 23:45 | DI.VRAD_ITS ---
PROCEDURE INFORMATION: Exam: XR Right Wrist Exam date and time: 05/20/2024 10:13 PM Age: 29 years old Clinical indication: Pain; Wrist; Right TECHNIQUE: Imaging protocol: Radiologic exam of the right wrist. Views: 3 or more views. COMPARISON: CR XR HAND RT COMPLETE 03/27/2023 5:11 PM FINDINGS: Bones/joints: Normal. Soft tissues: Normal. IMPRESSION: No acute findings. Dictated and Authenticated by: Joseluis Jaime MD. Ordering:RAJANI De La O MD
== END 2024-05-20 23:27 | disposition home or self-care (01) ==
PROVIDERS: Emergency Provider Student in an Organized Health Care Education/Training Program; PCP Nurse Practitioner Family
DX: R45.1 Restlessness and agitation (principal); M25.531 Pain in right wrist; F90.9 Attention-deficit hyperactivity disorder, unspecified type; Q93.59 Other deletions of part of a chromosome; K76.0 Fatty (change of) liver, not elsewhere classified; R62.59 Other lack of expected normal physiological development in childhood
CPT/HCPCS: 00123; 96127; 99284; 73110

== ENCOUNTER 2024-06-20 10:33 | Outpatient (CLI) | payer OTHER, MEDICARE, MEDICAID, SELFPAY ==
[2024-06-20 20:19] LABS: HIV-1/2 Ag & Ab Screen Negative (Negative)
[2024-06-23 10:42] LABS: Hepatitis C Ab w Rflx HCV PCR Negative (Negative)
== END 2024-06-20 10:34 | disposition home or self-care (01) ==
LOC: LOS 10:33
PROVIDERS: PCP Nurse Practitioner Family; Referring Provider Family Medicine; Visit Provider Family Medicine
DX: Z11.59 Encounter for screening for other viral diseases (principal); Z11.4 Encounter for screening for human immunodeficiency virus [HIV]; Z23 Encounter for immunization; Q89.01 Asplenia (congenital)
CPT/HCPCS: 36415; 86803; 87389

== ENCOUNTER 2024-07-30 15:08 | Outpatient (CLI) | payer OTHER, MEDICARE, MEDICAID, SELFPAY ==
[2024-07-30 15:08] LABS: Abs Immature Grans 0.04 10^3/uL (0.0-0.06); HCT 42.8 % (36.0-46.0); HGB 14.2 g/dL (11.2-15.7); MCHC 33.2 % (32.0-36.0); MCV 96 fL (80-95); Platelet Count 597 10^3/uL (130-400); RBC 4.44 10^6/uL (3.93-5.22); RDW 13.9 % (11.7-14.6); RDW-SD 49.7 fL; WBC 16.87 10^3/uL (4.4-10.8)
[2024-07-30 15:38] LABS: Absolute Eosinophil Count 0.84 10^3/uL (0.0-0.7); Absolute Lymphocyte Count 6.24 10^3/uL (1.2-3.4); Absolute Monocyte Count 1.52 10^3/uL (0.1-0.8); Absolute Neutrophil Count 7.93 10^3/uL (1.2-6.7); Atypical Lymphocytes % 5 %; Bands % 0 %; Diff Comment Manual Differential
[2024-07-30 15:55] LABS: ALT 32 U/L (14-59); AST 21 U/L (15-37); Albumin 3.7 g/dL (3.4-5.0); Alkaline Phosphatase 106 U/L (46-116); Anion Gap 10.5 mmol/L (3-11); BUN 10 mg/dL (7-18); Bilirubin, Total 0.19 mg/dL (0.2-1.0); CO2 24.5 mmol/L (21.0-32.0); CREATININE 0.6 mg/dL (0.55-1.02); Calcium 9.4 mg/dL (8.5-10.1); Chloride 107 mmol/L (98-107); Estimated GFR 126.09 (mL/min/1.73m2); Glucose 102 mg/dL (74-106); Sodium 142 mmol/L (136-145); Total Protein 7.8 g/dL (6.4-8.2)
[2024-07-31 11:00] LABS: Lyme Ab w Rflx to Lyme Confirm Negative (Negative)
[2024-08-02 18:34] LABS: Anaplasma phagocytophilum Negative (Negative); B. miyamotoi PCR Negative (Negative); Babesia divergens/MO-1 Negative (Negative); Babesia duncani Negative (Negative); Babesia microti Negative (Negative); Ehrlichia chaffeensis Negative (Negative); Ehrlichia ewingii/canis Negative (Negative); Ehrlichia muris eauclairensis Negative (Negative)
== END 2024-07-30 15:09 | disposition home or self-care (01) ==
LOC: LBO 15:09
PROVIDERS: PCP Nurse Practitioner Family; Visit Provider Nurse Practitioner Family
DX: R59.1 Generalized enlarged lymph nodes (principal); H93.91 Unspecified disorder of right ear
CPT/HCPCS: 36415; 80053; 87798; 85025; 86618

== ENCOUNTER 2024-07-31 20:20 | Emergency (ER) | payer OTHER, MEDICARE, MEDICAID, SELFPAY ==
[2024-07-31 20:25] VITALS: BP 141/82; PULSE 91; RESP 18; TEMP 36.6; O2SAT 98
--- NOTE | 2024-07-31 20:25 | W.ED.GENAD ---
Discharge Plan Disposition Patient Disposition: Home Condition: Stable Discharge Details Clinical Impression: Reactive cervical lymphadenopathy Primary Care Provider: Aretha Parnell ED Provider: Car Davies Home Meds and New Rx's Prescriptions: Continued betamethasone dipropionate 0.05 % cream 1 applic topical DAILY PRN (Reason: skin irritation) Qty: 45 0RF lorazepam 0.5 mg tablet 0.5 - 1 mg PO DAILY PRN (Reason: panic attacks) Qty: 20 0RF clotrimazole 1 % cream 1 applic topical BID PRN Rx Instructions: Apply to affected areas twice a day for 2-4wks or until resolution triamcinolone acetonide 0.1 % cream 1 applic Topical BID PRN (Reason: atopic dermatitis) Qty: 80 4RF Rx Instructions: Apply small amount to affected areas twice a day as needed for rash doxycycline hyclate 100 mg capsule 100 mg PO BID 14 Days Qty: 28 0RF Rx Instructions: Avoid sun exposure. Take with meal. Take 1 pill every 12 hours x 14 days norethindrone-e.estradiol-iron [Minastrin 24 Fe] 1 mg-20 mcg(24) /75 mg (4) tablet,chewable 1 tab PO DAILY Qty: 84 3RF Fiber Gummies 2 gram tablet,chewable 2 g PO DAILY PRN (Reason: constipation) Qty: 60 0RF melatonin 2.5 mg tablet,chewable 5 mg PO HS PRN (Reason: sleep) Qty: 60 0RF multivit with min-folic acid [Adult One Daily Gummies] 200 mcg tablet,chewable 2 tab PO DAILY Qty: 60 0RF bupropion HCl 300 mg tablet extended release 24 hr 300 mg PO DAILY Qty: 90 1RF Discharge Instructions Instructions: Lymphadenitis Additional Instructions: You were seen in the emergency department for your right tonsillar lymphadenopathy, you have some other diffuse reactive lymphadenopathy in the cervical chain of lymph nodes seen on CT, there is no abscess seen, you have some evidence of esophagitis you should follow-up with your PCP on, please continue the antibiotics that you are on, return for any vocal changes, decreased range of motion of jaw, excessive drooling, severe fever with neck stiffness, otherwise is likely early onset of a viral illness, please follow-up with ENT for failure to resolve of this neck swelling. Referrals: Aretha Parnell NP [Primary Care Provider] - Discharge Data Discharge Date/Time-TO BE ENTERED AT DEPARTURE: 07/31/24 22:58 HPI General Date/Time Provider Initiated Documentation: 07/31/24 20:22. HPI Narrative: 29 year-old female presents to ED today by POV/ambulating with a chief complaint of R tonsillar neck swelling with onset noted for a few weeks, worse the past two days. Quality described as painful with certain neck movements, no radiation to ear pain, fever, sore throat, cough, vocal changes, trismus, excessive drooling, endorses headaches, and chills/sweats. Severity is described as moderate. Palliating factors include taking adequate Tylenol & ibuprofen, applying a warm washcloth to the area. Provoking factors include nothing specific. Events leading up to the incident/Associated Symptoms: Patient has splenectomy in 2022, had Lyme panel yesterday at PCP which was negative. Patient not anticoagulated. Related Data Home Medications ?Medication ?Instructions ?Recorded ?Confirmed norethindrone 1 mg-e. estradiol 20 1 tab PO DAILY #84 tabs 10/31/23 07/31/24 mcg (24)-iron 75 mg (4) chew tablet (Minastrin 24 Fe) inulin 2 gram chewable tablet 2 g PO DAILY PRN constipation #60 03/14/24 07/31/24 (Fiber Gummies) tabs melatonin 2.5 mg chewable tablet 5 mg (2 x 2.5 mg) PO HS PRN sleep 03/14/24 07/31/24 #60 tabs multivitamin with minerals-folic 2 tab PO DAILY #60 tabs 03/14/24 07/31/24 acid 200 mcg chewable tablet (Adult One Daily Gummies) triamcinolone acetonide 0.1 % 1 applic topical BID PRN atopic 03/17/24 07/31/24 topical cream dermatitis #80 grams bupropion HCl 300 mg 24 hr tablet, 300 mg PO DAILY #90 tabs 05/29/24 07/31/24 extended release clotrimazole 1 % topical cream 1 applic topical BID PRN 06/20/24 07/31/24 betamethasone dipropionate 0.05 % 1 applic topical DAILY PRN skin 07/14/24 07/31/24 topical cream irritation #45 grams lorazepam 0.5 mg tablet 0.5 - 1 mg (1 - 2 x 0.5 mg) PO 07/14/24 07/31/24 DAILY PRN panic attacks #20 tabs doxycycline hyclate 100 mg capsule 100 mg PO BID 14 days #28 caps 07/30/24 07/31/24 Previous Rx's ?Medication ?Instructions ?Recorded norethindrone 1 mg-e. estradiol 20 1 tab PO DAILY #84 tabs 10/31/23 mcg (24)-iron 75 mg (4) chew tablet (Minastrin 24 Fe) inulin 2 gram chewable tablet 2 g PO DAILY PRN constipation #60 03/14/24 (Fiber Gummies) tabs melatonin 2.5 mg chewable tablet 5 mg (2 x 2.5 mg) PO HS PRN sleep 03/14/24 #60 tabs multivitamin with minerals-folic 2 tab PO DAILY #60 tabs 03/14/24 acid 200 mcg chewable tablet (Adult One Daily Gummies) triamcinolone acetonide 0.1 % 1 applic topical BID PRN atopic 03/17/24 topical cream dermatitis #80 grams bupropion HCl 300 mg 24 hr tablet, 300 mg PO DAILY #90 tabs 05/29/24 extended release betamethasone dipropionate 0.05 % 1 applic topical DAILY PRN skin 07/14/24 topical cream irritation #45 grams lorazepam 0.5 mg tablet 0.5 - 1 mg (1 - 2 x 0.5 mg) PO 07/14/24 DAILY PRN panic attacks #20 tabs doxycycline hyclate 100 mg capsule 100 mg PO BID 14 days #28 caps 07/30/24 Allergies Allergy/AdvReac Type Severity Reaction Status Date / Time amoxicillin Allergy Intermediate RASH Verified 07/31/24 20:28 cephalexin monohydrate (From Allergy Intermediate RASH Verified 07/31/24 20:28 Keflex) sulfamethoxazole (From Allergy Intermediate Hives Verified 07/31/24 20:28 Bactrim) trimethoprim (From Bactrim) Allergy Intermediate Hives Verified 07/31/24 20:28 ciprofloxacin (From Cipro) Allergy Unknown Hives Unverified 07/31/24 20:28 clindamycin Allergy Hives Verified 07/31/24 20:28 General BEKAH: 2 Review of Systems All systems reviewed & are unremarkable except as noted in HPI and below Exam Narrative Exam Narrative: GENERAL APPEARANCE: Well-nourished, non-toxic, awake and alert, atraumatic, no acute distress. SKIN: Warm, pink, dry, intact, without rashes/lesions/ulcerations. HEAD: Normocephalic, atraumatic, normal hair distribution for gender/age. EYES: Normal conjunctiva, no exudates on lids/lashes. ENT: Nares patent, no circumoral cyanosis, no facial swelling, right tonsillar lymphadenopathy, bilateral TMs clear, no mastoid tenderness on right, uvula midline, no trismus, no vocal changes NECK: Supple, trachea midline, painless cervical ROM, no nuchal rigidity. LUNGS/CHEST: Lungs CTA bilaterally- no rhonchi/rales/wheezes diffusely, non-labored respirations, normal A/P diameter, symmetrical expansion, no chest wall deformity HEART (CV/PV): Regular rate and rhythm without murmur, no peripheral edema, no JVD. ABDOMEN: Soft, non-distended, no guarding. MSK: Normal ROM, no swelling/deformity to bilateral UEs or LEs, moving all extremities without weakness, no cyanosis, spine midline without tenderness, normal curvature. NEURO: Mental Status AAOx4 - alert to person, place, time, events No facial droop, no forehead involvement. Motor: No focal weakness - strength 5/5 in bilateral UEs and LEs, proximal and distal, symmetric. Sensory: sensation intact to light touch globally. Gait normal: patient ambulated without ataxia into ED room. PSYCH: euthymic, cooperative, pleasant, appropriate speech Medical Decision Making This dictation utilizes [id number] dictation software and may contain unedited grammatical errors. 29 year-old female presents to ED today by POV/ambulating with a chief complaint of R tonsillar neck swelling with onset noted for a few weeks, worse the past two days. Quality described as painful with certain neck movements, no radiation to ear pain, fever, sore throat, cough, vocal changes, trismus, excessive drooling, endorses headaches, and chills/sweats. Severity is described as moderate. Palliating factors include taking adequate Tylenol & ibuprofen, applying a warm washcloth to the area. Provoking factors include nothing specific. Events leading up to the incident/Associated Symptoms: Patient has splenectomy in 2022, had Lyme panel yesterday at PCP which was negative. Patients' medical history: Pancreatitis, status post splenectomy, status post pharyngoplasty, MASLD, chromosome 1 P36 deletion, obesity, prediabetes. Family and social history: Lives at home with parents enjoys group activities, is going bowling tomorrow. Pertinent exam findings / vital signs include right tonsillar lymphadenopathy without trismus, no vocal changes, uvula midline, no mastoid tenderness, bilateral TMs within normal limits, no nuchal rigidity, lungs CTA. Differential / pathologies of concern include reactive lymphadenopathy, lymphoma, abscess, deep space infection, strep throat, URI, early viral prodrome. Diagnostic studies of: -CBC, CMP, lactate, rapid strep, COVID/flu/RSV PCR, CT neck with contrast. Interventions of: -None. ED Course/Assessment/Plan: 29-year-old female presents with right tonsillar lymphadenopathy seen by primary care with a negative Lyme workup, underwent basic laboratory workup. This evening underwent basic laboratory workup which shows no signs of sepsis with a normal lactate but does have elevated white blood cells but is started on antibiotics yesterday by primary care for this reactive lymphadenopathy. I did deputy chief counsel the patient's that there is a possibility of deep space infection but she has no vocal changes or trismus or excessive drooling, counseled that. Findings not consistent with peritonsillar abscess or deep space infection, septic illness or meningismus. Disposition of reactive cervical lymphadenopathy. Patient verbalized understanding of the plan and return to ED criteria and engaged in shared decision making. Medical Records Medical records reviewed: Yes I reviewed the patient's medical records. Imaging Data Radiologic Study: Attestation: I personally reviewed and interpreted this imaging study as follows: Imaging: CT Scan My impression: Enlarged tonsillar lymph node, no clear abscess and no airway narrowing Radiologist's impression: Exam: CT Neck With Contrast Exam date and time: 07/31/2024 9:22 PM Age: 29 years old Clinical indication: Other: R tonsillar lymphadenopathy TECHNIQUE: Imaging protocol: Computed tomography of the neck with contrast. Contrast material: OMNI 350; Contrast volume: 100 ml; Contrast route: INTRAVENOUS (IV); COMPARISON: MR BRAIN WO 11/29/2023 2:43 PM FINDINGS: Salivary glands: Normal. Glands are normal in size. Teeth: Streak artifact from dental implants limits evaluation. Pharynx: Unremarkable. No significant tonsillar enlargement. Prevertebral and retropharyngeal spaces: Unremarkable. Larynx: Unremarkable. Epiglottis is normal. Thyroid: Normal. No enlarged or calcified nodules. Trachea: Visualized trachea is unremarkable. Lungs: Unremarkable as visualized. Esophagus: Thickening of the visualized distal esophagus. Lymph nodes: Scattered bilateral cervical chain lymph nodes measuring up to 10 mm on the left and 10 mm on the right likely reactive. Bones/joints: Unremarkable. No acute fracture. Soft tissues: Unremarkable. No significant soft tissue swelling. IMPRESSION: Streak artifact from dental implants limits evaluation. 1. Scattered bilateral cervical chain lymph nodes measuring up to 10 mm on the left and 10 mm on the right likely reactive. 2. Thickening of the visualized distal esophagus. Correlate for esophagitis though esophageal mass lesions are not well excluded on CT. 3. No evidence of tonsillar abscess or edema. No evidence of retropharyngeal abscess Dictated and Authenticated by: Marcy Gutierrez MD. Lab Data Lab results reviewed: Yes I reviewed the patient's lab results. Labs: Laboratory Tests Range/Units 07/31/24 07/31/24 20:58 21:03 WBC (4.4-10.8) 10^3/uL 19.59 H RBC (3.93-5.22) 10^6/uL 4.37 Hgb (11.2-15.7) g/dL 13.8 Hct (36.0-46.0) % 41.7 MCV (80-95) fL 95 MCH (27.0-33.0) pg 31.6 MCHC (32.0-36.0) % 33.1 RDW (11.7-14.6) % 13.9 Plt Count (130-400) 10^3/uL 573 H MPV (8.0-11.0) fL 8.7 Immature Gran % % 0.0 Neutrophils % % 44.0 Lymphocytes % % 34.0 Atypical Lymphs % % 5 Monocytes % % 9.0 Eosinophils % % 7.0 Basophils % % 1.0 Nucleated RBC % (0.0-0.3) % 0.0 Absolute Neutrophils (1.2-6.7) 10^3/uL 8.62 H Absolute Lymphocytes (1.2-3.4) 10^3/uL 7.64 H Absolute Monocytes (0.1-0.8) 10^3/uL 1.76 H Absolute Eosinophils (0.0-0.7) 10^3/uL 1.37 H Absolute Basophils (0.0-0.2) 10^3/uL 0.20 RBC Morphology Normal VBG Lactate (0.6-1.4) mmol/L 1.6 H Sodium (136-145) mmol/L 143 Potassium (3.5-5.1) mmol/L 3.5 Chloride (98-107) mmol/L 109 H Carbon Dioxide (21.0-32.0) mmol/L 23.2 Anion Gap (3-11) mmol/L 10.8 BUN (7-18) mg/dL 16 Creatinine (0.55-1.02) mg/dL 0.6 Est GFR (CKD-EPI 2020) (mL/min/1.73m2) 126.09 Glucose (74-106) mg/dL 128 H Calcium (8.5-10.1) mg/dL 9.5 Total Bilirubin (0.2-1.0) mg/dL 0.21 AST (15-37) U/L 14 L ALT (14-59) U/L 28 Alkaline Phosphatase (46-116) U/L 101 Total Protein (6.4-8.2) g/dL 7.5 Albumin (3.4-5.0) g/dL 3.5 COVID-19 Source NASOPHARYNX SARS-CoV-2 (PCR) (Negative) Negative Influenza Type A (PCR) (Negative) Negative Influenza Type B (PCR) (Negative) Negative RSV (PCR) (Negative) Negative Quality:SDOH Health Related Social Needs: No Data to Display PFSH All Active Problems (Updated 08/01/24 @ 10:38 by Aretha Parnell NP) Leukocytosis (Acute) Reactive cervical lymphadenopathy (Acute) Lymphadenopathy of head and neck (Acute) Major depressive disorder, recurrent (Chronic) Generalized anxiety disorder (Chronic) Asplenia (Chronic) Meningococcal serotype ACWY vaccine every 5 years (2028) and Meningococcal serotype B in a year (September 2024) and then every 2-3 years thereafter. 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) Mild developmental delay (Chronic) Medical History (Updated 08/01/24 @ 10:38 by Aretha Parnell NP) Pancreatitis (~09/06/23) Velopharyngeal insufficiency, congenital S/p pharyngoplasty Surgical History S/P splenectomy (08/29/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 History of partial splenectomy (01/02/11) History of surgery on arm (07/07/09) Closed reduction and percutaneous pinning of displaced supracondylar fracture of left distal humerus H/O oral surgery X 3 S/P pharyngoplasty (10/03/04) Family History Self Adopted Mother Fragile X syndrome Social History (Updated 03/03/24 @ 09:57 by Lilliana Banegas) Smoking/Tobacco Use Status: Never Second Hand Exposure: No Smoking risk assessment performed?: Yes Alcohol Intake: current Alcohol Intake frequency: holidays/special occasions only Alcohol type: other Drug use: Never Substance use type: does not use Adopted: Yes Caregiver/Support person: Yes (Mother) Foster care: No Household members: adopted family Housing: house Communication Needs: None Education Level: high school Do you need help understanding health information?: Often Pets and animals: Yes Pets and animals: cat(s) and dog(s) Sexually active: No Do you think of yourself as: straight/heterosexual Current gender identity: female What is your relationship status?: never How often do you talk on the phone with friends or family?: three or more times per week How often do you get together with friends or relatives?: three or more times per week Do you belong to any clubs or organized social groups?: yes Panel score (0-1 are the most socially isolated patients): 2 What type of physical activity do you participate in: regular exercise, other Details: Rock climbing and running Duration: 60-90 minutes/day Frequency: 3-4 times per week Delia/Episcopalian: Mormon Special delia needs: No Seatbelt use: always Helmet use: Yes Helmet use: always Drive intox or ride w/intox laundry route driver: No Water heater temp set <120 deg: Yes Working smoke detector in home: Yes Fire extinguisher in home: Yes Carbon monox detector in home: Yes Firearms in home: No Do you feel safe at home: Yes Victim of physical abuse: No Victim of emotional abuse: No Victim of sexual abuse: No Would you like helpful sources: No Female Reproductive History Menstrual control method: pills History History 0 Para Hx # Term Pregnancies Multiple births Hx # Pregnancies Ectopic pregnancies AB induced Hx Number of Living Children AB spontaneous
--- NOTE | 2024-07-31 20:45 | DI.CT_ITS ---
Exam(s) CT NECK W EXAM: CT NECK W INDICATION: R tonsillar lymphadenopathy. COMPARISON: No exams were available for comparison TECHNIQUE: FINDINGS: VISUALIZED PARANASAL SINUSES: Mucosal thickening is noted in the left sphenoid sinus. Maxillary sinu ses are clear as is the left frontal sinus. Right frontal sinus is not developed. Ethmoidal air lula ls are clear. NASOPHARYNX: Unremarkable ORODENTAL: Unremarkable. OROPHARYNX: No masses at the level the tonsils. Uvula is midline. No evidence of retropharyngeal ab scess. HYPOPHARYNX: Unremarkable. Valleculae and epiglottis and aryepiglottic folds appear normal. VOCAL CORDS: Unremarkable. No masses evident. Subglottic airway appears unremarkable. THYROID GLAND: Unremarkable. Normal size and no obvious nodules. However, there is mass density bel ow the thyroid gland along the right side of the trachea most probably adenopathy. SALIVARY GLANDS: Submandibular glands appear unremarkable. Left parotid gland appears un remarkable. Subtle nodule noted in the right parotid gland posterior aspect. LYMPH NODES: There are multiple bilateral enlarged lymph nodes on both sides the neck as well as in t he submental region, these nodes measuring up to 1 cm size. OTHER: VISUALIZED LUNG APICES: No significant findings. IMPRESSION: 1. In addition to multiple slightly prominent lymph nodes on both sides the neck and submental regio n, there is also appears to be significant lymphadenopathy around the trachea below the level of the thyroid gland. Correlation with past medical history recommended. 2. Subtle of abnormal enhancement in the posterior aspect of the right parotid gland measuring appro ximately 1.5 x 1.0 cm. Possible nodule. 3. Some mucosal thickening is noted in the left SP noted sinus First read by [facility] Final report called by myself to ER provider 08/01/2024 at 9:10 a.m. RADIATION DOSE DELIVERED: 187mGy.cm Total DLP DATA REPOSITORY: All CT scans at this facility are submitted to the National Radiology Data Registry (NRDR) Dose Index Registry (DIR) with the [employer] (ACR). RADIATION OPTIMIZATION: All CT scans at this facility use at least one of these dose optimization te chniques: automated exposure control; mA and/or kV adjustment per patient size (includes targeted exa ms where dose is matched to clinical indication); or iterative reconstruction.
[2024-07-31 21:08] LABS: Lactate 1.6 mmol/L (0.6-1.4)
[2024-07-31 21:09] LABS: HCT 41.7 % (36.0-46.0); HGB 13.8 g/dL (11.2-15.7); MCH 31.6 pg (27.0-33.0); MCHC 33.1 % (32.0-36.0); MCV 95 fL (80-95); MPV 8.7 fL (8.0-11.0); Platelet Count 573 10^3/uL (130-400); RBC 4.37 10^6/uL (3.93-5.22); RDW 13.9 % (11.7-14.6); RDW-SD 48.9 fL; WBC 19.59 10^3/uL (4.4-10.8)
[2024-07-31 21:16] VITALS: RESP 16
[2024-07-31 21:24] LABS: ALT 28 U/L (14-59); AST 14 U/L (15-37); Albumin 3.5 g/dL (3.4-5.0); Alkaline Phosphatase 101 U/L (46-116); Anion Gap 10.8 mmol/L (3-11); BUN 16 mg/dL (7-18); Bilirubin, Total 0.21 mg/dL (0.2-1.0); CO2 23.2 mmol/L (21.0-32.0); CREATININE 0.6 mg/dL (0.55-1.02); Calcium 9.5 mg/dL (8.5-10.1); Chloride 109 mmol/L (98-107); Estimated GFR 126.09 (mL/min/1.73m2); Glucose 128 mg/dL (74-106); Potassium 3.5 mmol/L (3.5-5.1); Sodium 143 mmol/L (136-145); Total Protein 7.5 g/dL (6.4-8.2)
[2024-07-31 21:26] LABS: Diff Comment Manual Differential
[2024-07-31] MEDS: Normal Saline - Diluent 50 ML VIAL IJ (21:26)
[2024-07-31] MEDS: Omnipaque 350 MG/ML 100 ML BTL IJ (21:26)
[2024-07-31 21:27] LABS: Absolute Eosinophil Count 1.37 10^3/uL (0.0-0.7); Absolute Lymphocyte Count 7.64 10^3/uL (1.2-3.4); Absolute Monocyte Count 1.76 10^3/uL (0.1-0.8); Absolute Neutrophil Count 8.62 10^3/uL (1.2-6.7); Atypical Lymphocytes % 5 %; RBC Morphology Normal
[2024-07-31 21:54] LABS: COVID-19 PCR Negative (Negative); Influenza A PCR Negative (Negative); Influenza B PCR Negative (Negative); RSV PCR Negative (Negative); Source NASOPHARYNX
--- NOTE | 2024-07-31 22:35 | DI.VRAD_ITS ---
PROCEDURE INFORMATION: Exam: CT Neck With Contrast Exam date and time: 07/31/2024 9:22 PM Age: 29 years old Clinical indication: Other: R tonsillar lymphadenopathy TECHNIQUE: Imaging protocol: Computed tomography of the neck with contrast. Contrast material: OMNI 350; Contrast volume: 100 ml; Contrast route: INTRAVENOUS (IV); COMPARISON: MR BRAIN WO 11/29/2023 2:43 PM FINDINGS: Salivary glands: Normal. Glands are normal in size. Teeth: Streak artifact from dental implants limits evaluation. Pharynx: Unremarkable. No significant tonsillar enlargement. Prevertebral and retropharyngeal spaces: Unremarkable. Larynx: Unremarkable. Epiglottis is normal. Thyroid: Normal. No enlarged or calcified nodules. Trachea: Visualized trachea is unremarkable. Lungs: Unremarkable as visualized. Esophagus: Thickening of the visualized distal esophagus. Lymph nodes: Scattered bilateral cervical chain lymph nodes measuring up to 10 mm on the left and 10 mm on the right likely reactive. Bones/joints: Unremarkable. No acute fracture. Soft tissues: Unremarkable. No significant soft tissue swelling. IMPRESSION: Streak artifact from dental implants limits evaluation. 1. Scattered bilateral cervical chain lymph nodes measuring up to 10 mm on the left and 10 mm on the right likely reactive. 2. Thickening of the visualized distal esophagus. Correlate for esophagitis though esophageal mass lesions are not well excluded on CT. 3. No evidence of tonsillar abscess or edema. No evidence of retropharyngeal abscess Dictated and Authenticated by: Marcy Gutierrez MD. Ordering:FLACO Yoon MD
[2024-07-31 22:56] VITALS: BP 122/79; PULSE 78; RESP 18; O2SAT 98
[2024-08-01 11:04] LABS: Mono Screening Negative (Negative)
--- NOTE | 2024-08-01 14:58 | W.ED.FU ---
Follow Up Plan: Received a call from Dr. Velazquez, radiologist regarding an over read from virtual radiology for CT soft tissue neck with contrast which was performed in the overnight. There is report of tracheal lymphadenopathy which Dr. Velazquez would like followed. After reviewing the note from the provider who evaluated the patient last evening, it seems patient came in with right-sided tonsillitis. She had diagnostic labs which showed leukocytosis at 19,000 and is asplenic. There is concern that patient will need close outpatient involvement of ENT and reassessment by primary care physician to determine whether or not patient may require biopsy. Patient was called and attempted placed on antibiotics, it appears she has multiple allergies to medications I would typically prescribe for oral josé luis intervention, so I will pend return call to discuss whether or not patient may be able to take cefdinir or amoxicillin and confirm whether or not these are true allergies. Called at 1500 on 1122
== END 2024-07-31 22:58 | disposition home or self-care (01) ==
PROVIDERS: Physician Assistant; Emergency Provider Physician Assistant; PCP Nurse Practitioner Family
DX: R59.0 Localized enlarged lymph nodes; Z90.81 Acquired absence of spleen
CPT/HCPCS: 36415; 70491; 80053; 87637; 87880; 99285; 83605; 85025; 86308; J3490

== ENCOUNTER 2024-11-15 13:57 | Emergency (ER) | payer OTHER, MEDICARE, MEDICAID, SELFPAY ==
[2024-11-15 14:35] VITALS: BP 119/81; PULSE 96; RESP 12; O2SAT 98
--- NOTE | 2024-11-15 14:45 | DI.RAD_ITS ---
Exam(s) XR SHOULDER RT COMPLETE 2+V EXAM: XR SHOULDER RT COMPLETE 2+V CLINICAL HISTORY: r shoulder pain. TECHNIQUE: 2D digital imaging was performed. COMPARISON: No exams were available for comparison FINDINGS: Four views. There is a nondisplaced fracture of the greater tuberosity. Subacromial space is not diminished. No abnormal soft tissue calcifications. Clavicle appears intact. No degenerative changes in the AC johnyn int nor in the glenohumeral joint IMPRESSION: There is a nondisplaced fracture of the greater tuberosity of the humeral head. DATA REPOSITORY: RADIATION DOSE DELIVERED:
--- NOTE | 2024-11-15 14:45 | DI.RAD_ITS ---
Exam(s) XR CLAVICLE RT EXAM: XR CLAVICLE RT CLINICAL HISTORY: r shoulder pain. TECHNIQUE: 2D digital imaging was performed. COMPARISON: No exams were available for comparison FINDINGS: Two views No evidence of right clavicle fracture nor significant offset of the AC joint. IMPRESSION: No clavicle fracture. Please note that other radiographs performed today reveal a nondisplaced fracture of the greater tube rosity of the right humeral head. DATA REPOSITORY: RADIATION DOSE DELIVERED:
--- NOTE | 2024-11-15 14:51 | W.ED.GENAD ---
Discharge Plan Disposition Patient Disposition: Home Discharge Details Clinical Impression: Humeral head fracture, Acute pain of right shoulder Primary Care Provider: Aretha Parnell ED Provider: Jw Lemos Home Meds and New Rx's Prescriptions: No Action betamethasone dipropionate 0.05 % cream 1 applic topical DAILY PRN (Reason: skin irritation) Qty: 45 0RF lorazepam 0.5 mg tablet 0.5 - 1 mg PO DAILY PRN (Reason: panic attacks) Qty: 20 0RF clotrimazole 1 % cream 1 applic topical BID PRN Rx Instructions: Apply to affected areas twice a day for 2-4wks or until resolution triamcinolone acetonide 0.1 % cream 1 applic Topical BID PRN (Reason: atopic dermatitis) Qty: 80 4RF Rx Instructions: Apply small amount to affected areas twice a day as needed for rash trazodone 50 mg tablet 50 - 100 mg PO DAILY Qty: 90 3RF Fiber Gummies 2 gram tablet,chewable 2 g PO DAILY PRN (Reason: constipation) Qty: 60 0RF melatonin 2.5 mg tablet,chewable 5 mg PO HS PRN (Reason: sleep) Qty: 60 0RF multivit with min-folic acid [Adult One Daily Gummies] 200 mcg tablet,chewable 2 tab PO DAILY Qty: 60 0RF bupropion HCl 300 mg tablet extended release 24 hr 300 mg PO DAILY Qty: 90 1RF norethindrone-e.estradiol-iron 1 mg-20 mcg(24) /75 mg (4) tablet,chewable 1 tab PO DAILY Qty: 84 3RF Discharge Instructions Instructions: Upper Arm Fracture ED Additional Instructions: You have a small fracture of the greater tuberosity of the humeral head. Please continue Motrin and Tylenol for any pain. You can apply ice pack for 10 minutes every hour. Wear the sling as needed for comfort until you are evaluated by orthopedic surgery. A referral has been sent to their clinic and they will contact you next week to set up an appointment. HPI General Date/Time Provider Initiated Documentation: 11/15/24 14:01. Limitations to Documentation: no limitations. Information obtained by: patient. HPI Narrative: 29-year-old female with past medical history including developmental delay, depression, asplenia presents for evaluation of right shoulder pain. She reports acute onset of pain just prior to arrival. She was doing a downhill ski event for the [employer] when she skied and hit a gate. She states that she struck the gate with her right shoulder and then fell. She reports that she was wearing a helmet. There was no loss of consciousness or headache, vision change or vomiting. She reports that she felt like her shoulder popped out of place initially, but then must of popped back in. She denies any numbness or tingling or weakness in the right upper extremity. She went home after being evaluated by deskidding machine operator and attempted some ice and rest, but symptoms did not improve. She has not taken any medication for relief of pain. Related Data Home Medications ?Medication ?Instructions ?Recorded ?Confirmed inulin 2 gram chewable tablet 2 g PO DAILY PRN constipation #60 03/14/24 11/15/24 (Fiber Gummies) tabs melatonin 2.5 mg chewable tablet 5 mg (2 x 2.5 mg) PO HS PRN sleep 03/14/24 11/15/24 #60 tabs multivitamin with minerals-folic 2 tab PO DAILY #60 tabs 03/14/24 11/15/24 acid 200 mcg chewable tablet (Adult One Daily Gummies) triamcinolone acetonide 0.1 % 1 applic topical BID PRN atopic 03/17/24 11/15/24 topical cream dermatitis #80 grams bupropion HCl 300 mg 24 hr tablet, 300 mg PO DAILY #90 tabs 05/29/24 11/15/24 extended release clotrimazole 1 % topical cream 1 applic topical BID PRN 06/20/24 11/15/24 betamethasone dipropionate 0.05 % 1 applic topical DAILY PRN skin 07/14/24 11/15/24 topical cream irritation #45 grams lorazepam 0.5 mg tablet 0.5 - 1 mg (1 - 2 x 0.5 mg) PO 07/14/24 11/15/24 DAILY PRN panic attacks #20 tabs norethindrone 1 mg-e. estradiol 20 1 tab PO DAILY #84 tabs 09/15/24 11/15/24 mcg (24)-iron 75 mg (4) chew tablet trazodone 50 mg tablet 50 - 100 mg (1 - 2 x 50 mg) PO 11/10/24 11/15/24 DAILY #90 tabs Previous Rx's ?Medication ?Instructions ?Recorded inulin 2 gram chewable tablet 2 g PO DAILY PRN constipation #60 03/14/24 (Fiber Gummies) tabs melatonin 2.5 mg chewable tablet 5 mg (2 x 2.5 mg) PO HS PRN sleep 03/14/24 #60 tabs multivitamin with minerals-folic 2 tab PO DAILY #60 tabs 03/14/24 acid 200 mcg chewable tablet (Adult One Daily Gummies) triamcinolone acetonide 0.1 % 1 applic topical BID PRN atopic 03/17/24 topical cream dermatitis #80 grams bupropion HCl 300 mg 24 hr tablet, 300 mg PO DAILY #90 tabs 05/29/24 extended release betamethasone dipropionate 0.05 % 1 applic topical DAILY PRN skin 07/14/24 topical cream irritation #45 grams lorazepam 0.5 mg tablet 0.5 - 1 mg (1 - 2 x 0.5 mg) PO 07/14/24 DAILY PRN panic attacks #20 tabs norethindrone 1 mg-e. estradiol 20 1 tab PO DAILY #84 tabs 09/15/24 mcg (24)-iron 75 mg (4) chew tablet trazodone 50 mg tablet 50 - 100 mg (1 - 2 x 50 mg) PO 11/10/24 DAILY #90 tabs Allergies Allergy/AdvReac Type Severity Reaction Status Date / Time amoxicillin Allergy Intermediate RASH Verified 11/15/24 14:39 cephalexin monohydrate (From Allergy Intermediate RASH Verified 11/15/24 14:39 Keflex) sulfamethoxazole (From Allergy Intermediate Hives Verified 11/15/24 14:39 Bactrim) trimethoprim (From Bactrim) Allergy Intermediate Hives Verified 11/15/24 14:39 ciprofloxacin (From Cipro) Allergy Unknown Hives Verified 11/15/24 14:39 clindamycin Allergy Hives Verified 11/15/24 14:39 General Stated Complaint: Orthopedic BEKAH: 4 Exam Narrative Exam Narrative: Review of Systems: All systems reviewed & are unremarkable except as noted in HPI and below Well-developed, no acute distress NCAT Unlabored respiratory effort Clavicle nontender without deformity or bruising Show right shoulder tenderness without dislocation apparent, no obvious deformity, tenderness more at the AC joint, normal elbow normal wrist, neurovascularly intact no focal neurologic deficits Appropriate mood and affect Course Vital Signs Vital signs: Vital Signs Pulse 96 H 11/15/24 14:35 Respiratory Rate 12 11/15/24 14:35 Blood Pressure 119/81 11/15/24 14:35 Pulse Oximetry 98 11/15/24 14:35 Pulse 96 H 11/15/24 14:35 Respiratory Rate 12 11/15/24 14:35 Blood Pressure 119/81 11/15/24 14:35 Blood Pressure Position Sitting 11/15/24 14:35 Pulse Oximetry 98 11/15/24 14:35 Oxygen Delivery Method Room Air 11/15/24 14:35 Oxygen Flow Rate 0 11/15/24 14:35 Pain Level 4 11/15/24 14:35 Medical Decision Making Emergent evaluation of acute traumatic right shoulder injury. Initial differential includes fracture, disc dislocation, ligamentous injury. Patient sustained injury during downhill skiing event. At this time, the patient does not have obvious deformity, open wound and has no signs of neurovascular injury. Will pain control and get x-ray imaging. X-ray images of shoulder and clavicle were reviewed, radiology reports reviewed. There is a nondisplaced fracture of the greater tuberosity of the humeral head. Patient was provided a sling and referred to orthopedic surgery for follow-up. Quality:SDOH Health Related Social Needs: No Data to Display PFSH All Active Problems (Updated 11/15/24 @ 15:26 by Jw Lemos MD) Acute pain of right shoulder (Acute) Humeral head fracture (Acute) Leukocytosis (Acute) Major depressive disorder, recurrent (Chronic) Generalized anxiety disorder (Chronic) Insomnia (Chronic) Asplenia (Chronic) Meningococcal serotype ACWY vaccine every 5 years (2028) and Meningococcal serotype B in a year (September 2024) and then every 2-3 years thereafter. 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) Mild developmental delay (Chronic) Medical History (Updated 03/08/25 @ 15:26 by Jw Lemos MD) Pancreatitis (~09/06/23) Velopharyngeal insufficiency, congenital S/p pharyngoplasty Surgical History S/P splenectomy (08/29/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 History of partial splenectomy (01/02/11) History of surgery on arm (07/07/09) Closed reduction and percutaneous pinning of displaced supracondylar fracture of left distal humerus H/O oral surgery X 3 S/P pharyngoplasty (10/03/04) Family History Self Adopted Mother Fragile X syndrome Social History (Updated 03/03/24 @ 09:57 by Lilliana Banegas) Smoking/Tobacco Use Status: Never Second Hand Exposure: No Smoking risk assessment performed?: Yes Alcohol Intake: current Alcohol Intake frequency: holidays/special occasions only Alcohol type: other Drug use: Never Substance use type: does not use Adopted: Yes Caregiver/Support person: Yes (Mother) Foster care: No Household members: adopted family Housing: house Communication Needs: None Education Level: high school Do you need help understanding health information?: Often Pets and animals: Yes Pets and animals: cat(s) and dog(s) Sexually active: No Do you think of yourself as: straight/heterosexual Current gender identity: female What is your relationship status?: never How often do you talk on the phone with friends or family?: three or more times per week How often do you get together with friends or relatives?: three or more times per week Do you belong to any clubs or organized social groups?: yes Panel score (0-1 are the most socially isolated patients): 2 What type of physical activity do you participate in: regular exercise, other Details: Rock climbing and running Duration: 60-90 minutes/day Frequency: 3-4 times per week Delia/Shinto: Orthodox Special delia needs: No Seatbelt use: always Helmet use: Yes Helmet use: always Drive intox or ride w/intox stock car driver: No Water heater temp set <120 deg: Yes Working smoke detector in home: Yes Fire extinguisher in home: Yes Carbon monox detector in home: Yes Firearms in home: No Do you feel safe at home: Yes Victim of physical abuse: No Victim of emotional abuse: No Victim of sexual abuse: No Would you like helpful sources: No Female Reproductive History Menstrual control method: pills History History 0 Para Hx # Term Pregnancies Multiple births Hx # Pregnancies Ectopic pregnancies AB induced Hx Number of Living Children AB spontaneous
[2024-11-15] MEDS: Acetaminophen 500 MG TAB 1000 MG PO (14:58)
[2024-11-15] MEDS: Ibuprofen 600 MG TAB PO (14:58)
[2024-11-15 16:07] VITALS: BP 115/78; PULSE 90; RESP 18; O2SAT 97
== END 2024-11-15 16:10 | disposition home or self-care (01) ==
PROVIDERS: Emergency Provider Emergency Medicine; PCP Nurse Practitioner Family
DX: M25.511 Pain in right shoulder (principal); S42.254A Nondisplaced fracture of greater tuberosity of right humerus, initial encounter for closed fracture; R62.50 Unspecified lack of expected normal physiological development in childhood; Q89.01 Asplenia (congenital); Q93.59 Other deletions of part of a chromosome; W21.89XA Striking against or struck by other sports equipment, initial encounter; Y93.23 Activity, snow (alpine) (downhill) skiing, snowboarding, sledding, tobogganing and snow tubing; Y92.838 Other recreation area as the place of occurrence of the external cause
CPT/HCPCS: 99283; 73000; 73030

== ENCOUNTER 2024-11-26 15:55 | Outpatient (CLI) | payer OTHER, MEDICARE, MEDICAID, SELFPAY ==
--- NOTE | 2024-11-26 10:15 | DI.RAD_ITS ---
Exam(s) XR SHOULDER RT COMPLETE 2+V EXAM: XR SHOULDER RT COMPLETE 2+V CLINICAL HISTORY: F/U FRACTURE. TECHNIQUE: 2D digital imaging was performed of the right shoulder. Two images were obtained. Grash ey and Y views were obtained. COMPARISON: CR XR SHOULDER RT COMPLETE 2+V from 11/15/2024 FINDINGS: BONES: There has been no change in alignment of the nondisplaced fracture involving the greater tuber osity. No bony destructive lesion is seen. JOINTS: No dislocation present. SOFT TISSUE: Normal. IMPRESSION: Stable alignment of the nondisplaced fracture involving the greater tuberosity. DATA REPOSITORY: RADIATION DOSE DELIVERED:
== END 2024-11-26 15:56 | disposition home or self-care (01) ==
LOC: DIORS 15:55
PROVIDERS: PCP Nurse Practitioner Family; Visit Provider Student in an Organized Health Care Education/Training Program
DX: S42.254D Nondisplaced fracture of greater tuberosity of right humerus, subsequent encounter for fracture with routine healing (principal); X58.XXXD Exposure to other specified factors, subsequent encounter
CPT/HCPCS: 73030

== ENCOUNTER 2024-12-01 16:23 | Outpatient (CLI) | payer OTHER, MEDICARE, MEDICAID, SELFPAY ==
--- NOTE | 2024-12-01 15:45 | DI.RAD_ITS ---
Exam(s) XR CHEST 2V PA LATERAL EXAM: XR CHEST 2V PA LATERAL CLINICAL HISTORY: J06.9 Acute upper respiratory infection Wheezing and fevers TECHNIQUE: 2D digital imaging was performed. Two views. COMPARISON: No exams were available for comparison FINDINGS: HEART: Normal size. Aorta: Not dilated. PULMONARY VASCULATURE: Normal. MEDIASTINUM: Unremarkable. LUNGS: Mild scattered bilateral ground-glass opacities and mildly increased interstitial markings cou ld be secondary to a viral or atypical pneumonitis. No focal area of consolidation. PLEURAL SPACE: No pleural effusion or pneumothorax. BONE:Unremarkable for age. SOFT TISSUES: Unremarkable. IMPRESSION: Mild bilateral ground-glass opacities and mildly increased interstitial markings could represent infe ctious or inflammatory pneumonitis. DATA REPOSITORY: RADIATION DOSE DELIVERED:
--- NOTE | 2024-12-01 17:54 | DI.VRAD_ITS ---
PROCEDURE INFORMATION: Exam: XR Chest Exam date and time: 12/01/2024 5:00 PM Age: 29 years old Clinical indication: Cough and fever TECHNIQUE: Imaging protocol: Radiologic exam of the chest. Views: 2 views. COMPARISON: CR XR PORTABLE CHEST AP 08/07/2022 3:03 AM FINDINGS: Tubes, catheters and devices: Embolization coil is present in the mid upper abdomen. Lungs: Scattered patchy ground-glass opacities within the lungs. These findings are nonspecific and may represent hypoventilatory change,edema, hemorrhage, or an infectious/inflammatory process (acute or chronic). Pleural spaces: There is no evidence of pneumothorax. There are no pleural effusions present. Heart/Mediastinum: The cardiac structures are normal. The mediastinal contour is normal. Bones/joints: The skeletal structures and soft tissues show no evidence of fracture or other acute processes. Soft tissues: The soft tissues of the extrathoracic region are unremarkable. IMPRESSION: Scattered patchy ground-glass opacities within the lungs. These findings are nonspecific and may represent hypoventilatory change,edema, hemorrhage, or an infectious/inflammatory process (acute or chronic). Dictated and Authenticated by: Mango Joshi MD. Orderin Bhavani Anahi TSE
== END 2024-12-01 16:43 ==
LOC: DI 16:24
PROVIDERS: PCP Nurse Practitioner Family; Visit Provider Nurse Practitioner Family
DX: J06.9 Acute upper respiratory infection, unspecified (principal)
CPT/HCPCS: 71046

== ENCOUNTER 2024-12-01 16:50 | Outpatient (CLI) | payer OTHER, MEDICARE, MEDICAID, SELFPAY ==
[2024-12-01 17:01] LABS: Absolute Monocyte Count 1.94 10^3/uL (0.1-0.8); Basophils % 1.1 %; Eosinophils % 7.1 %; HCT 42.9 % (36.0-46.0); HGB 14.3 g/dL (11.2-15.7); Immature Grans % 0.5 %; Lymphocytes % 29.8 %; MCH 30.9 pg (27.0-33.0); MCHC 33.3 % (32.0-36.0); MCV 93 fL (80-95); MPV 8.6 fL (8.0-11.0); Monocytes % 10.5 %; Platelet Count 634 10^3/uL (130-400); RBC 4.63 10^6/uL (3.93-5.22); RDW-SD 47.8 fL; WBC 18.47 10^3/uL (4.4-10.8)
[2024-12-01 17:03] LABS: Absolute Eosinophil Count 1.31 10^3/uL (0.0-0.7); Absolute Neutrophil Count 9.42 10^3/uL (1.2-6.7)
[2024-12-01 17:14] LABS: Diff Comment Agrees w/ Instrument; RBC Morphology Normal
[2024-12-01 17:29] LABS: ALT 25 U/L (14-59); AST 18 U/L (15-37); Albumin 3.5 g/dL (3.4-5.0); Alkaline Phosphatase 120 U/L (46-116); Anion Gap 11.5 mmol/L (3-11); BUN 15 mg/dL (7-18); Bilirubin, Total 0.2 mg/dL (0.2-1.0); CO2 23.5 mmol/L (21.0-32.0); CREATININE 0.6 mg/dL (0.55-1.02); Calcium 10.4 mg/dL (8.5-10.1); Chloride 107 mmol/L (98-107); Estimated GFR 126.09 (mL/min/1.73m2); Glucose 110 mg/dL (74-106); Potassium 4.1 mmol/L (3.5-5.1); Sodium 142 mmol/L (136-145); Total Protein 8.1 g/dL (6.4-8.2)
== END 2024-12-01 16:51 | disposition home or self-care (01) ==
LOC: LBO 16:51
PROVIDERS: PCP Nurse Practitioner Family; Visit Provider Nurse Practitioner Family
DX: R59.0 Localized enlarged lymph nodes (principal); D72.829 Elevated white blood cell count, unspecified; J02.9 Acute pharyngitis, unspecified; R68.89 Other general symptoms and signs; J06.9 Acute upper respiratory infection, unspecified
CPT/HCPCS: 36415; 80053; 88185; 85025; 88184; 88189

== ENCOUNTER 2024-12-01 21:59 | Outpatient (REF) | payer OTHER, MEDICARE, MEDICAID, SELFPAY | END 2024-12-01 22:00 | disposition home or self-care (01) | LOC: LBN 21:59 | PROVIDERS: PCP Nurse Practitioner Family; Visit Provider Nurse Practitioner Family | DX: J02.9 Acute pharyngitis, unspecified (principal) | CPT/HCPCS: 87070 ==

== ENCOUNTER 2024-12-31 09:01 | Outpatient (CLI) | payer OTHER, MEDICARE, MEDICAID, SELFPAY ==
--- NOTE | 2024-12-31 08:00 | DI.RAD_ITS ---
Exam(s) XR SHOULDER RT COMPLETE 2+V EXAM: XR SHOULDER RT COMPLETE 2+V CLINICAL HISTORY: f/u fracture. TECHNIQUE: 2D digital imaging was performed of the right shoulder. Two images were obtained. Grash ey and Y views were obtained. COMPARISON: CR XR SHOULDER RT COMPLETE 2+V from 11/26/2024 FINDINGS: BONES: There has been no change in alignment of the fracture involving the greater tuberosity. No ne w fracture is seen. No bony destructive lesion is seen. JOINTS: No dislocation present. SOFT TISSUE: Normal. IMPRESSION: Stable nondisplaced greater tuberosity fracture. DATA REPOSITORY: RADIATION DOSE DELIVERED:
== END 2024-12-31 09:02 | disposition home or self-care (01) ==
LOC: DIORS 09:01
PROVIDERS: PCP Nurse Practitioner Family; Visit Provider Student in an Organized Health Care Education/Training Program
DX: S42.201A Unspecified fracture of upper end of right humerus, initial encounter for closed fracture (principal)
CPT/HCPCS: 73030

== ENCOUNTER 2025-01-14 15:55 | Emergency (ER) | payer OTHER, MEDICARE, MEDICAID, SELFPAY ==
[2025-01-14 15:58] VITALS: BP 141/89; PULSE 91; RESP 18; TEMP 37; O2SAT 97
--- NOTE | 2025-01-14 16:00 | DI.RAD_ITS ---
Exam(s) XR KNEE RT 3V AP,LAT,PAUL EXAM: XR KNEE RT 3V AP,LAT,PAUL CLINICAL HISTORY: right knee pain. TECHNIQUE: 2D digital imaging was performed. COMPARISON: No exams were available for comparison FINDINGS: 3 views No evidence of acute fracture. Small amount of increased joint fluid noted. No obvious degenerative changes. No osteochondral defects. Bone density normal. No osseous lesions. IMPRESSION: No acute osseous findings. Small amount of increased joint fluid noted. DATA REPOSITORY: RADIATION DOSE DELIVERED:
[2025-01-14] MEDS: Acetaminophen 500 MG TAB 1000 MG PO (16:12)
--- NOTE | 2025-01-14 16:16 | ED.GENADUL_ITS ---
Discharge Plan Disposition Patient Disposition: Home Discharge Details Clinical Impression: Injury of knee, Abrasion of knee, Acute joint effusion Primary Care Provider: Aretha Parnell ED Provider: Jw Lemos Home Meds and New Rx's Prescriptions: No Action betamethasone dipropionate 0.05 % cream 1 applic topical DAILY PRN (Reason: skin irritation) Qty: 45 0RF lorazepam 0.5 mg tablet 0.5 - 1 mg PO DAILY PRN (Reason: panic attacks) Qty: 20 0RF clotrimazole 1 % cream 1 applic topical BID PRN Rx Instructions: Apply to affected areas twice a day for 2-4wks or until resolution albuterol sulfate 90 mcg/actuation HFA aerosol inhaler 2 inh inhalation Q6H PRN (Reason: shortness of breath or wheezing) Qty: 8.5 3RF hydroxyzine HCl 25 mg tablet 25 mg PO TID PRN (Reason: itching) Qty: 30 1RF triamcinolone acetonide 0.1 % cream 1 applic Topical BID PRN (Reason: atopic dermatitis) Qty: 80 4RF Rx Instructions: Apply small amount to affected areas twice a day as needed for rash trazodone 50 mg tablet 50 - 100 mg PO DAILY Qty: 90 3RF Fiber Gummies 2 gram tablet,chewable 2 g PO DAILY PRN (Reason: constipation) Qty: 60 0RF multivit with min-folic acid [Adult One Daily Gummies] 200 mcg tablet,chewable 2 tab PO DAILY Qty: 60 0RF bupropion HCl 300 mg tablet extended release 24 hr 300 mg PO DAILY Qty: 90 1RF norethindrone-e.estradiol-iron 1 mg-20 mcg(24) /75 mg (4) tablet,chewable 1 tab PO DAILY Qty: 84 3RF Discharge Instructions Additional Instructions: Your x-ray does not reveal any acute fracture, but given your injury and pain, you may benefit from an MRI to evaluate for any internal derangement. This can be ordered via your primary care provider. Please contact them if your symptoms are not improving. Please continue Motrin and Tylenol as needed for pain. Ambulate with crutches, weightbearing as tolerated. You want to walk as normally as possible so that you do not create any other injuries. HPI General Date/Time Provider Initiated Documentation: 01/14/25 16:05 . Limitations to Documentation: no limitations . Information obtained by: patient . HPI Narrative: 29-year-old with past medical history of depression, anxiety, developmental delay presents for evaluation of right knee pain. 2 days ago she was walking her dog when she was pulled by the dog and fell onto the right knee. She reports immediate onset of pain, she states that the pain and swelling have gotten worse over the last 2 days. She states that she is walking but makes some minor adjustments in her gait. She is not taking any pain medication for relief. Related Data Home Medications ?Medication ?Instructions ?Recorded ?Confirmed inulin 2 gram chewable tablet 2 g PO DAILY PRN constipation #60 03/14/24 01/14/25 (Fiber Gummies) tabs multivitamin with minerals-folic 2 tab PO DAILY #60 tabs 03/14/24 01/14/25 acid 200 mcg chewable tablet (Adult One Daily Gummies) triamcinolone acetonide 0.1 % 1 applic topical BID PRN atopic 03/17/24 12/31/24 topical cream dermatitis #80 grams bupropion HCl 300 mg 24 hr tablet, 300 mg PO DAILY #90 tabs 05/29/24 01/14/25 extended release clotrimazole 1 % topical cream 1 applic topical BID PRN 06/20/24 01/14/25 betamethasone dipropionate 0.05 % 1 applic topical DAILY PRN skin 07/14/24 01/14/25 topical cream irritation #45 grams lorazepam 0.5 mg tablet 0.5 - 1 mg (1 - 2 x 0.5 mg) PO 07/14/24 01/14/25 DAILY PRN panic attacks #20 tabs norethindrone 1 mg-e. estradiol 20 1 tab PO DAILY #84 tabs 09/15/24 01/14/25 mcg (24)-iron 75 mg (4) chew tablet trazodone 50 mg tablet 50 - 100 mg (1 - 2 x 50 mg) PO 11/10/24 01/14/25 DAILY #90 tabs albuterol sulfate 90 mcg/actuation 2 inh inhalation Q6H PRN shortness 12/01/24 01/14/25 aerosol inhaler of breath or wheezing #8.5 grams hydroxyzine HCl 25 mg tablet 25 mg PO TID PRN itching #30 tabs 12/01/24 01/14/25 Previous Rx's ?Medication ?Instructions ?Recorded inulin 2 gram chewable tablet 2 g PO DAILY PRN constipation #60 03/14/24 (Fiber Gummies) tabs multivitamin with minerals-folic 2 tab PO DAILY #60 tabs 03/14/24 acid 200 mcg chewable tablet (Adult One Daily Gummies) triamcinolone acetonide 0.1 % 1 applic topical BID PRN atopic 03/17/24 topical cream dermatitis #80 grams bupropion HCl 300 mg 24 hr tablet, 300 mg PO DAILY #90 tabs 05/29/24 extended release betamethasone dipropionate 0.05 % 1 applic topical DAILY PRN skin 07/14/24 topical cream irritation #45 grams lorazepam 0.5 mg tablet 0.5 - 1 mg (1 - 2 x 0.5 mg) PO 07/14/24 DAILY PRN panic attacks #20 tabs norethindrone 1 mg-e. estradiol 20 1 tab PO DAILY #84 tabs 09/15/24 mcg (24)-iron 75 mg (4) chew tablet trazodone 50 mg tablet 50 - 100 mg (1 - 2 x 50 mg) PO 11/10/24 DAILY #90 tabs albuterol sulfate 90 mcg/actuation 2 inh inhalation Q6H PRN shortness 12/01/24 aerosol inhaler of breath or wheezing #8.5 grams hydroxyzine HCl 25 mg tablet 25 mg PO TID PRN itching #30 tabs 12/01/24 Allergies Allergy/AdvReac Type Severity Reaction Status Date / Time amoxicillin Allergy Intermediate RASH Verified 01/14/25 15:56 cephalexin monohydrate (From Allergy Intermediate RASH Verified 01/14/25 15:56 Keflex) sulfamethoxazole (From Allergy Intermediate Hives Verified 01/14/25 15:56 Bactrim) trimethoprim (From Bactrim) Allergy Intermediate Hives Verified 01/14/25 15:56 ciprofloxacin (From Cipro) Allergy Unknown Hives Verified 01/14/25 15:56 clindamycin Allergy Hives Verified 01/14/25 15:56 General Stated Complaint: Orthopedic BEKAH: 4 Exam Narrative Exam Narrative: Review of Systems: All systems reviewed & are unremarkable except as noted in HPI and below Well-developed, no acute distress NCAT Superficial scratches noted on left upper extremity bilateral lower legs Right anterior knee with large abrasion, no laceration, there is small joint effusion and swelling noted, tenderness over the lateral condyle, normal gait, no instability Course Vital Signs Vital signs: Vital Signs Temperature 37.0 C 01/14/25 15:58 Pulse 91 H 01/14/25 15:58 Respiratory Rate 18 01/14/25 15:58 Blood Pressure 141/89 H 01/14/25 15:58 Pulse Oximetry 97 01/14/25 15:58 Temperature 37.0 C 01/14/25 15:58 Temperature Source Oral 01/14/25 15:58 Pulse 91 H 01/14/25 15:58 Respiratory Rate 18 01/14/25 15:58 Blood Pressure 141/89 H 01/14/25 15:58 Blood Pressure Position Sitting 01/14/25 15:58 Pulse Oximetry 97 01/14/25 15:58 Oxygen Delivery Method Room Air 01/14/25 15:58 Oxygen Flow Rate 0 01/14/25 15:58 Pain Level 5 01/14/25 16:12 Medical Decision Making Emergent evaluation of acute traumatic right knee injury. Initial differential includes contusion, traumatic effusion, less likely fracture, no evidence of dislocation, also consider internal derangement. Pain medication given. X-ray ordered. The x-ray does reveal a small effusion, but does not reveal any acute bony abnormality. Offered crutches but patient declined. Recommend follow-up with PCP if symptoms are not improving she may benefit from an outpatient MRI. Quality:SDOH Health Related Social Needs: No Data to Display PFSH All Active Problems (Updated 01/14/25 @ 16:42 by Jw Lemos MD) Acute joint effusion (Acute) Abrasion of knee (Acute) Injury of knee (Acute) URI (upper respiratory infection) (Acute) Fracture of proximal end of right humerus (Acute ~11/15/24) Leukocytosis (Acute) Major depressive disorder, recurrent (Chronic) Generalized anxiety disorder (Chronic) Insomnia (Chronic) Asplenia (Chronic) Meningococcal serotype ACWY vaccine every 5 years (2028) and Meningococcal serotype B in a year (September 2024) and then every 2-3 years thereafter. 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) Mild developmental delay (Chronic) Medical History (Updated 01/14/25 @ 16:42 by Jw Lemos MD) Pancreatitis (~09/06/23) Velopharyngeal insufficiency, congenital S/p pharyngoplasty Surgical History S/P splenectomy (08/29/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 History of partial splenectomy (01/02/11) History of surgery on arm (07/07/09) Closed reduction and percutaneous pinning of displaced supracondylar fracture of left distal humerus H/O oral surgery X 3 S/P pharyngoplasty (10/03/04) Family History Self Adopted Mother Fragile X syndrome Social History (Updated 03/03/24 @ 09:57 by Lilliana Banegas) Smoking/Tobacco Use Status: Never Second Hand Exposure: No Smoking risk assessment performed?: Yes Alcohol Intake: current Alcohol Intake frequency: holidays/special occasions only Alcohol type: other Drug use: Never Substance use type: does not use Adopted: Yes Caregiver/Support person: Yes (Mother) Foster care: No Household members: adopted family Housing: house Communication Needs: None Education Level: high school Do you need help understanding health information?: Often Pets and animals: Yes Pets and animals: cat(s) and dog(s) Sexually active: No Do you think of yourself as: straight/heterosexual Current gender identity: female What is your relationship status?: never How often do you talk on the phone with friends or family?: three or more times per week How often do you get together with friends or relatives?: three or more times per week Do you belong to any clubs or organized social groups?: yes Panel score (0-1 are the most socially isolated patients): 2 What type of physical activity do you participate in: regular exercise, other Details: Rock climbing and running Duration: 60-90 minutes/day Frequency: 3-4 times per week Delia/Taoism: Zoroastrian Special delia needs: No Seatbelt use: always Helmet use: Yes Helmet use: always Drive intox or ride w/intox bobtail driver: No Water heater temp set <120 deg: Yes Working smoke detector in home: Yes Fire extinguisher in home: Yes Carbon monox detector in home: Yes Firearms in home: No Do you feel safe at home: Yes Victim of physical abuse: No Victim of emotional abuse: No Victim of sexual abuse: No Would you like helpful sources: No Female Reproductive History Menstrual control method: pills History History 0 Para Hx # Term Pregnancies Multiple births Hx # Pregnancies Ectopic pregnancies AB induced Hx Number of Living Children AB spontaneous
[2025-01-14 16:46] VITALS: BP 130/83; PULSE 82; RESP 16; O2SAT 99
== END 2025-01-14 16:49 | disposition home or self-care (01) ==
LOC: ER 16:48
PROVIDERS: Emergency Provider Emergency Medicine; PCP Nurse Practitioner Family
DX: M25.461 Effusion, right knee (principal); S80.211A Abrasion, right knee, initial encounter; W19.XXXA Unspecified fall, initial encounter
CPT/HCPCS: 99283 ×2; 73562

== ENCOUNTER 2025-02-10 08:15 | Outpatient (CLI) | payer OTHER, MEDICARE, MEDICAID, SELFPAY ==
--- NOTE | 2025-02-10 08:00 | DI.RAD_ITS ---
Exam(s) XR SHOULDER RT COMPLETE 2+V EXAM: XR SHOULDER RT COMPLETE 2+V CLINICAL HISTORY: F/U FRACTURE. TECHNIQUE: 2D digital imaging was performed. COMPARISON: CR XR SHOULDER RT COMPLETE 2+V from 12/31/2024 FINDINGS: 3 views There has been good healing of the greater tuberosity fracture. Fracture line is less evident on the present images. Glenohumeral joint and AC joint appear unremarkable. Bone density normal. No osse ous lesions. IMPRESSION: Further good healing at the greater tuberosity fracture site. DATA REPOSITORY: RADIATION DOSE DELIVERED:
== END 2025-02-10 08:16 | disposition home or self-care (01) ==
LOC: DIORS 08:15
PROVIDERS: PCP Nurse Practitioner Family; Visit Provider Student in an Organized Health Care Education/Training Program
DX: S42.201A Unspecified fracture of upper end of right humerus, initial encounter for closed fracture (principal); S42.251D Displaced fracture of greater tuberosity of right humerus, subsequent encounter for fracture with routine healing
CPT/HCPCS: 73030

== ENCOUNTER 2025-02-24 23:50 | Emergency (ER) | payer OTHER, MEDICARE, MEDICAID, SELFPAY ==
[2025-02-24 23:43] VITALS: BP 139/80; PULSE 70; RESP 18; TEMP 36.4; O2SAT 95
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
[2025-02-25] VITALS (9 sets, daily range): BP systolic 127–137; BP diastolic 71–72; PULSE 89–99; RESP 16–18; TEMP 36.9; O2SAT 94–99
[2025-02-25] MEDS: Midazolam 2 MG/2 ML VIAL IM (00:56)
[2025-02-25] MEDS: Midazolam 2 MG/2 ML VIAL 3 MG IM (01:39)
--- NOTE | 2025-02-25 08:06 | ED.PROG_ITS ---
Date of service: 02/25/25 Time of Service: 08:06 Medical Decision Making Patient slept well throughout the night. Patient has awoken and is surrounded by family. Patient is at her baseline now per family. She is interactive with no signs of severe or debilitating anxiety. Family feels very comfortable bring ing the patient home and is requesting discharge home at this time. Currently with no atypical components, homicidal or suicidal ideations, there is no indication for mental health evaluation at this time. Patient will be discharged home back with family. Repeat neurologic exam demonstrates baseline status. Patient will be discharged. I have extensively reviewed the treatment plan and discharge instructions with the patient and their family. I have addressed all patient concerns at this time. The patient and family was made aware of what symptoms to monitor for that would warrant a return to the emergency department. Discussed the plan with the patient and family, they demonstrate verbal understanding and agreement with our assessment and plan at this time. The documentation in this chart was dictated using [employer] dictation software. Please excuse any dictation errors. Discharge Plan Disposition Patient Disposition: Home Condition: Good Discharge Details Clinical Impression: Excessive crying of adult Primary Care Provider: Aretha Parnell ED Provider: [facility] Home Meds and New Rx's Prescriptions: Continued betamethasone dipropionate 0.05 % cream 1 applic topical DAILY PRN (Reason: skin irritation) Qty: 45 0RF lorazepam 0.5 mg tablet 0.5 - 1 mg PO DAILY PRN (Reason: panic attacks) Qty: 20 0RF clotrimazole 1 % cream 1 applic topical BID PRN Rx Instructions: Apply to affected areas twice a day for 2-4wks or until resolution hydroxyzine HCl 25 mg tablet 25 mg PO TID PRN (Reason: itching) Qty: 30 1RF triamcinolone acetonide 0.1 % cream 1 applic Topical BID PRN (Reason: atopic dermatitis) Qty: 80 4RF Rx Instructions: Apply small amount to affected areas twice a day as needed for rash trazodone 50 mg tablet 50 - 100 mg PO DAILY Qty: 90 3RF Fiber Gummies 2 gram tablet,chewable 2 g PO DAILY PRN (Reason: constipation) Qty: 60 0RF multivit with min-folic acid [Adult One Daily Gummies] 200 mcg tablet,chewable 2 tab PO DAILY Qty: 60 0RF bupropion HCl 300 mg tablet extended release 24 hr 300 mg PO DAILY Qty: 90 1RF norethindrone-e.estradiol-iron 1 mg-20 mcg(24) /75 mg (4) tablet,chewable 1 tab PO DAILY Qty: 84 3RF Discharge Instructions Additional Instructions: You are seen in the emergency department for your episode of excessive crying. As we discussed if you do not feel safe at home or if you have any other concerns please return to the emergency department. Otherwise please continue taking your daily medications as previously prescribed. If you notice any worsening of your symptoms, or any new symptoms such as vomiting, diarrhea, fever, chills, shortness of breath, chest pain, numbness, weakness, or fainting , please return immediately to the emergency department for reevaluation. Please follow up with your primary care provider as soon as possible for reassessment and reevaluation. As always, it was a pleasure participating in your medical care today. Referrals: Aretha Parnell NP [Primary Care Provider, Medicine]
== END 2025-02-25 09:20 | disposition home or self-care (01) ==
PROVIDERS: Emergency Provider Student in an Organized Health Care Education/Training Program; PCP Nurse Practitioner Family
DX: R45.83 Excessive crying of child, adolescent or adult (principal); Q93.59 Other deletions of part of a chromosome; F32.A Depression, unspecified
CPT/HCPCS: 123; 96372; 99284; 00123; J2250

== ENCOUNTER 2025-06-10 16:05 | Outpatient (CLI) | payer OTHER, MEDICARE, MEDICAID, SELFPAY | END 2025-06-10 16:06 | disposition home or self-care (01) | LOC: LBO 16:06 | PROVIDERS: PCP Nurse Practitioner Family; Visit Provider Nurse Practitioner Family | DX: D72.829 Elevated white blood cell count, unspecified (principal) | CPT/HCPCS: 36415; 88185; 88184; 88189 ==

== ENCOUNTER → 2025-07-14 00:46 | Outpatient (CLI) | payer OTHER, MEDICARE, MEDICAID, SELFPAY ==
--- NOTE | 2025-07-14 06:00 | DI.MRI_ITS ---
Exam(s) MR UPPER JOINT RT WO EXAM: MR UPPER JOINT RT WO CLINICAL HISTORY: ? PROXIMAL BICEPS INJURY, S/P TUBEROSITY FX,tendinopathy rt biceps tendon,. TECHNIQUE: Multiplanar multisequence MRI was performed. COMPARISON: CR XR SHOULDER RT COMPLETE 2+V from 02/10/2025 FINDINGS: BONES: There is marrow edema seen in the anterior aspect of the greater tuberosity. There is otherwise normal marrow signal. JOINTS: The acromioclavicular joint is normal. The glenohumeral joint is normal. There is no significant joint effusion. TENDONS: Supraspinatus: There is mild tendinosis of the supraspinatus tendon without evidence of a full-thickness tear. Infraspinatus: Unremarkable. Subscapularis: Unremarkable. Teres Minor: Unremarkable. Biceps and Mills: Unremarkable. MUSCLES: Unremarkable. GLENOID LABRUM: Unremarkable on this noncontrast examination. SOFT TISSUES: Mildly enlarged lymph nodes are seen in the right axilla. These are likely reactive. LIGAMENTS: Unremarkable. OTHER: There is very mild hyperintense signal seen in the subacromial subdeltoid bursa. IMPRESSION: 1. Mild tendinosis of the supraspinatus tendon. There is no evidence of a rotator cuff tear. 2. Normal appearance of the biceps tendon. 3. Unremarkable glenoid labrum on this noncontrast examination. 4. Mild marrow edema seen in the anterior aspect of the greater tuberosity. No evidence to suggest an acute fracture. 5. Small amount of hyperintense signal seen in the subacromial subdeltoid bursa. Question of a mild bursitis. Please correlate clinically. DATA REPOSITORY:
== END ==
LOC: DI 00:46
PROVIDERS: PCP Nurse Practitioner Family; Visit Provider Student in an Organized Health Care Education/Training Program
DX: M67.813 Other specified disorders of tendon, right shoulder (principal)
CPT/HCPCS: 73221

== ENCOUNTER 2025-07-28 16:21 | Outpatient (CLI) | payer OTHER, MEDICARE, MEDICAID, SELFPAY ==
[2025-07-28 17:11] LABS: Abs Immature Grans 0.04 10^3/uL (0.0-0.06); HCT 39.8 % (36.0-46.0); HGB 13.6 g/dL (11.2-15.7); Immature Grans % 0.3 %; MCH 31.6 pg (27.0-33.0); MCHC 34.2 % (32.0-36.0); MCV 93 fL (80-95); MPV 9.8 fL (8.0-11.0); Platelet Count 508 10^3/uL (130-400); RBC 4.30 10^6/uL (3.93-5.22); RDW 13.7 % (11.7-14.6); RDW-SD 46.8 fL; WBC 15.46 10^3/uL (4.4-10.8)
[2025-07-28 17:52] LABS: RBC Morphology Normal
[2025-07-28 17:59] LABS: Hemoglobin A1C 5.0 % (<5.7)
[2025-07-28 18:16] LABS: Iron 53 ug/dL (50-170); Total Iron Binding Capacity 326 ug/dL (250-425); Transferrin Sat 16 % (15-50)
[2025-07-28 18:17] LABS: ALT 30 U/L (10-49); AST 20 U/L (<34); Albumin 4.5 g/dL (3.4-5.0); Alkaline Phosphatase 108 U/L (46-116); Anion Gap 11.2 mmol/L (3-11); BUN 15 mg/dL (9-23); Bilirubin, Total 0.30 mg/dL (0.2-1.2); CO2 20.8 mmol/L (20.0-31.0); Calcium 10.7 mg/dL (8.3-10.6); Chloride 110 mmol/L (98-107); Cholesterol 146 mg/dL (<200); Glucose 92 mg/dL (74-106); HDL Cholesterol 29 mg/dL (>40); Potassium 3.9 mmol/L (3.5-5.1); Sodium 142 mmol/L (136-145); Total Protein 7.4 g/dL (5.7-8.2)
[2025-07-28 18:20] LABS: Ferritin 100 ng/mL (7-271); TSH 1.18 uIU/mL (0.55-4.78); Vitamin D 25 Total 37 ng/mL (30-100)
[2025-07-28 18:40] LABS: Folate 10.6 ng/mL (>5.38); Vitamin B12 834 pg/mL (211-911)
== END 2025-07-28 16:22 | disposition home or self-care (01) ==
LOC: LBO 16:22
PROVIDERS: Registered Nurse; PCP Nurse Practitioner Family; Visit Provider Nurse Practitioner Family
DX: Q89.01 Asplenia (congenital) (principal); D72.829 Elevated white blood cell count, unspecified; F33.1 Major depressive disorder, recurrent, moderate; F41.1 Generalized anxiety disorder; F50.02 Anorexia nervosa, binge eating/purging type; E66.9 Obesity, unspecified; Z79.3 Long term (current) use of hormonal contraceptives; F41.8 Other specified anxiety disorders; Z51.81 Encounter for therapeutic drug level monitoring
CPT/HCPCS: 36415; 80053; 80061; 82306; 88185; 82607; 82728; 82746; 83036; 83540; 83550; 84439; 84443; 85025; 88184; 88189